=== PATIENT | male | born 1955 | race Caucasian/White ===

== ENCOUNTER 2023-12-15 07:21 | Outpatient (CLI) | payer MEDICARE, SELFPAY ==
--- OUTSIDE RECORDS SUMMARY | 2023-12-15 07:25 | XMS_ITS | Clinical Summary ---
Author Name Unknown Organization [facility] Address [place], [place] [address] Care Team Providers Care Saddle Lining Stitcher Name Role Phone Segun Hopkins MD Primary Care Provider [phone] Lucy Crawley Unavailable [phone] Allergies Active Allergy Reactions Criticality Noted Date Comments Penicillins Muscle Weakness 10/05/2010 Medications Medication Sig Dispensed Refills Start Date End Date Status hydrochlorothiazide (HCTZ) 25 mg tabletIndications:h ypertension Take 25 mg by mouth once daily. Indications: HYPERTENSION Active doxycycline (ADOXA) 100 mg tabletIndications:a cne rosacea Take 100 mg by mouth 2 times daily. Indications: ACNE ROSACEA Active mirtazapine (REMERON SOLTAB) 15 mg disintegrating tabletIndications:i nsomnia Place 15 mg on the tongue at bedtime. Indications: insomnia Active omeprazole (PRILOSEC) 20 mg capsuleIndications: gastroesophageal reflux disease Take 20 mg by mouth every 24 hours. Indications: GASTROESOPHAGEAL REFLUX 10/05/2010 Active ASPIRIN (ASPIR-81 ORAL) Take 1 tablet by mouth once daily. Active cyanocobalamin (VITAMIN B12) 500 mcg tablet Take 500 mcg by mouth once daily. Active atorvastatin (LIPITOR) 10 mg tablet Take 10 mg by mouth once daily. Active thiamine (VITAMIN B1) 100 mg tablet Take 100 mg by mouth once daily. Active divalproex (DEPAKOTE) 250 mg Delayed-Release tablet Take 250 mg by mouth once daily. Take 500mg PO qAM and 1000mg PO qHS Active acamprosate (CAMPRAL) 333 mg tablet Take 666 mg by mouth 3 times daily. Active MULTIVITS,TH W-CA,FE,OTH MIN (MULTIVITAMIN AND MINERAL ORAL) Take 1 tablet by mouth once daily. Active guaiFENesin (MUCINEX) 600 mg Extended-Release tablet Take 600 mg by mouth 2 times daily if needed for Expectoration. Active Melatonin 5 mg tab Take 5 mg by mouth at bedtime if needed for Sleep. Active ibuprofen (ADVIL; MOTRIN) 200 mg tablet Take 600 mg by mouth 4 times daily if needed. Active benzonatate (TESSALON) 100 mg capsule Take 200 mg by mouth 3 times daily if needed for Cough. Active loratadine (CLARITIN) 10 mg tablet Take 10 mg by mouth once daily if needed for Allergy Symptoms. Active rx azithromycin (ZITHROMAX ZPAK) 250 mg tablet (ED DC MED)Indications:Aty pical pneumonia Take 500 mg (2 tablets) by mouth on Day 1 then 250 mg (1 tablet) by mouth daily on Days 2-5. 2 tablet 0 01/01/2015 Active Active Problems Problem Noted Date Diagnosed Date Sensorineural hearing loss, bilateral 02/09/2017 Other and unspecified alcoho l dependence, continuous drinking behavior 10/06/2010 Cannabis dependence, continuous 10/06/2010 Encounters Date Type Department Care Team Description 12/01/2023 Telephone [facility] [address] [place] [address] Sung Lang, AuD Questions (Poured Wall Foreman referral ) from Last 3 Months Social History Tobacco Use Types Packs/Day Years Used Date Smoking Tobacco: Heavy Smoker Cigarettes Alcohol Use Standard Drinks/Week Comments Yes 0 (1 standard drink = 0.6 oz pur e alcohol) last drink 12/14/14 Sex and Gender Information Value Date Recorded Sex Assigned at Not on file Gender Identity Not on file Sexual Orientation Not on file Obstetrics History Last Filed Vital Signs Vital Sign Reading Time Taken Comments Blood Pressure 155/92 01/01/2015 11:40 PM CDT Pulse 67 01/01/2015 11:40 PM CDT Temperature 36.8 ??C (98.3 ??F) 01/01/2015 10:21 PM C DT Respiratory Rate 20 01/01/2015 10:21 PM CDT Oxygen Saturation 95% 01/01/2015 11:40 PM CDT Inhaled Oxygen Concentration - - Weight 88.9 kg (196 lb) 01/01/2015 10:21 PM CDT Height 188 cm (6' 2) 01/01/2015 10:21 PM CDT Body Mass Index 25.16 01/01/2015 10:21 PM CDT Plan of Treatment Health Maintenance Due Date Last Done Comments Tdap 1968 Depression screening for age 12+ 1969 BMI (ht and wt on same day) for age 18+ 1975 Hepatitis C screening for ag e 18-79 1975 Tetanus booster 1977 Colonoscopy through age 75 2002 Lipids for age 45-75 2002 Zoster (shingles) series for age 50+ (1 of 2) 2007 Medicare Wellness for age 65+ 2022 Pneumococcal series for age 65+ (1 of 1 - PCV) 2022 COVID-19 vaccine series (2022-24 season) 2023 11/24/2022, 11/20/2021, 11/23/2020, Additional history exists Influenza for age 65+ 04/10/2024 Advance Directives * Full Code (Latest Code Status on File) Date Activated Date Inactivated Comments 10/05/2010 2:33 PM 10/08/2010 2:50 PM Care Teams Saddle Lining Stitcher Relationship Specialty [place] [id number] [id number] PCP - General 03/17/08 Lucy Crawley AuD [address] [place] [address] Audiology 02/09/17
--- OUTSIDE RECORDS SUMMARY | 2023-12-15 07:25 | XMS_ITS | Clinical Summary ---
Author Name Unknown Organization [facility] Address [address] [place] [address] Care Team Providers Care Escape Wheel Tooth Cutter Name Role Phone Segun Hopkins MD Primary Care Provider [phone] Source Comments You are receiving this document as you are listed as the primary care provider,follow-up provider, or the patient has been referred to you for consultation.This is in compliance with the Medicare andMedicaid EHR Incentive Program,which states Providers who transition their patient to another setting of careor provider of care or refers their patient to another provider of care shouldprovide summary care record for each transition of care or referral. [facility] Allergies Active Allergy Reactions Criticality Noted Date Comments Gabapentin Anaphylaxis High 03/23/2014 Throat Swelling with difficulty breathing Levetiracetam Other, see comments High 01/06/2020 Manic Episodes Penicillins Muscle Aches/Weakness 01/30/2017 Medications Medication Sig Dispensed Refills Start Date End Date Status divalproex (DEPAKOTE DR) 500 MG enteric coated tablet Take 1,000 mg by mouth two times a day. Active folic acid 1 MG tablet Take by mouth daily. Acti ve Lansoprazole (PREVACID OR) Active aspirin 81 MG chewable tablet Chew and swallow 1 Tablet by mouth daily. Active VIMPAT 100 MG tablet Take 100 mg by mouth two times a day. 07/12/2021 Active lamoTRIgine (LAMICTAL) 25 MG tablet Take 50 mg by mouth two times a day. 07/12/2021 Active lisinopril (ZESTRIL) 5 MG tablet Take 5 mg by mouth. 05/28/2021 Acti ve metoprolol succinate (TOPROL XL) 25 MG 24 hour release tablet TAKE 1 TABLET BY MOUTH ONE TIME DAILY do not crush or chew 07/09/2021 Active omeprazole (PRILOSEC) 20 MG capsule TAKE 1 CAPSULE BY MOUTH EVERY MORNING BEFORE BREAKFAST 06/15/2021 Active traZODone (DESYREL) 50 MG tablet Take 50 mg by mouth daily at bedtime. 06/15/2021 Active sodium chloride 1 g tablet Take 3 tablets (3 g total) by mouth 3 (three) times a day with meals. 05/07/2021 Active atorvastatin (LIPITOR) 10 MG tablet Take 10 mg by mouth daily. 06/15/2021 Active divalproex (DEPAKOTE ER) 250 MG 24 hour release tablet TAKE ONE TABLET BY MOUTH ONE TIME DAILY IN THE EVENING 06/01/2021 Active triamcinolone acetonide (KENALOG) 0.025 % creamIndications:int ertrigo Apply topically two times a day. Bid x 5-7 days then prn Indications: intertrigo 30 g 1 07/24/2021 Active ketoconazole (NIZORAL) 2 % cream Apply daily to affected areas. 30 g 1 07/24/2021 Active Active Problems No known active problems Social History Tobacco Use Types Packs/Day Years Used Date Smoking Tobacco: Some Days Smokeless Tobacco: Never Alcohol Use Standard Drinks/Week Comments Yes 0 (1 standard drink = 0.6 oz pur e alcohol) Sex and Gender Information Value Date Recorded Sex Assigned at Not on file Gender Identity Not on file Sexual Orientation Not on file Last Filed Vital Signs Vital Sign Reading Time Taken Comments Blood Pressure 130/69 07/24/2021 9:16 AM NURSE TECHNICIAN Pulse 59 07/24/2021 9:16 AM NURSE TECHNICIAN Temperature 37 ??C (98.6 ??F) 07/24/2021 9:16 AM NURSE TECHNICIAN Respiratory Rate 18 07/24/2021 9:15 AM NURSE TECHNICIAN Oxygen Saturation 98% 07/24/2021 9:15 AM NURSE TECHNICIAN Inhaled Oxygen Concentration - - Weight 92 kg (202 lb 12.8 oz) 01/30/2017 2:15 PM CDT Height 188 cm (6' 2) 01/30/2017 2:15 PM CDT Body Mass Index 26.04 01/30/2017 2:15 PM CDT Plan of Treatment Health Maintenance Due Date Last Done Comments Colon Cancer Screening Plan Due 1957 Hep C Screening (Preventive Services) 1955 PSA Screening Discussion 1957 Adult Preventive Visit 1975 Cholesterol 1992 COVID-19 Vaccine (3 - season) 2023 11/23/2020, 10/26/2020 Pneumococcal 65+ Yrs (3 - PPSV23 or PCV20) 01/27/2024 01/04/2021, 01/26/2019, 05/09/2016, Additional history exists Influenza (Season Ended) 2024 021, 10/18/2019, 06/04/2016, Additional history exists DTaP/Tdap/Td (3 - Tdap) 05/02/2030 05/02/2020, 07/31 Zoster/Shingles Completed 04/24/2021, 01/04/2021 HepA Aged Out No longer eligi ble based on patient's age to complete this topic HepB Aged Out No longer eligi ble based on patient's age to complete this topic Hib Aged Out No longer eligi ble based on patient's age to complete this topic IPV (Polio) Aged Out No longer eligi ble based on patient's age to complete this topic MCV4 Aged Out No longer eligi ble based on patient's age to complete this topic Advance Directives * Full Code (Latest Code Status on File) Date Activated Date Inactivated Comments 01/30/2017 2:50 PM 01/31/2017 1:50 PM Care Teams Escape Wheel Tooth Cutter Relationship Specialty [place] [address] [address] [id number] PCP - General Family Practice 01/30/17
--- OUTSIDE RECORDS SUMMARY | 2023-12-15 07:25 | XMS_ITS | Encounter Summary ---
Author Name Unknown Organization [facility] Address [address] [place] [address] Care Team Providers Care Baggage Porter Head Name Role Phone Segun Hopkins MD Primary Care Provider [phone] Encounter Details Date Type Department Care Team (Late st Contact Info) Description 01/30/2017 Correspondence [facility] Radiology [address] [place] [id number] Radiology, Provider MRI SAFETY SHEET AND COMPATIBILITY FORM Social History Tobacco Use Types Packs/Day Years Used Date Smoking Tobacco: Some Days Alcohol Use Standard Drinks/Week Comments Yes 0 (1 standard drink = 0.6 oz pur e alcohol) Sex and Gender Information Value Date Recorded Sex Assigned at Not on file Gender Identity Not on file Sexual Orientation Not on file documented as of this encounter Plan of Treatment Not on file documented as of this encounter Visit Diagnoses Not on filedocumented in this encounter Care Teams Baggage Porter Head Relationship Specialty [place] [address] [place] [address] PCP - General Family Practice 01/30/17 documented as of this encounter
--- OUTSIDE RECORDS SUMMARY | 2023-12-15 07:26 | XMS_ITS | Referral Summary ---
Author Name Unknown Organization [facility] Address [address] [place] [address]. [place] [address] Care Team Providers Care Medicaid Collection Specialist Name Role Phone Segun Hopkins MD Primary Care Provider [phone] Allergies Active Allergy Reactions Criticality Noted Date Comments Gabapentin 03/23/2014 Penicillins 03/23/2014 Medications Medication Sig Dispensed Refills Start Date End Date Status atorvastatin (LIPITOR) 10 MG tablet Take 10 mg by mouth daily Active omeprazole (PRILOSEC) [address] capsule Take 20 mg by mouth At Bedtime Active vitamin B-12 (CYANOCOBALAMIN) 500 MCG tablet Take 500 mcg by mouth daily Active vitamin B1 (THIAMINE) 100 MG tablet Take 100 mg by mouth daily Active MELATONIN PO Take 10 mg by mouth At Bedtime Active folic acid (FOLVITE) 1 MG tablet Take 1 mg by mouth daily Active multivitamin, therapeutic with minerals (THERA-VIT-M) TABS Take 1 tablet by mouth daily Active traZODone (DESYREL) 50 MG tablet Take 50 mg by mouth At Bedtime 09/13/2019 Active metoprolol succinate ER (TOPROL-XL) 25 MG 24 hr tablet Take 25 mg by mouth daily 09/13/2019 Active doxycycline hyclate (VIBRAMYCIN) 100 MG capsule Take 100 mg by mouth 2 times daily 09/13/2019 Active ibuprofen (ADVIL/MOTRIN) 200 MG tablet Take 200 mg by mouth every 6 hours as needed for mild pain Active aspirin (ASA) 325 MG EC tablet Take 325 mg by mouth daily Active divalproex sodium extended-release (DEPAKOTE ER) 500 MG 24 hr tablet Take 1,000 mg by mouth every morning Active divalproex sodium extended-release (DEPAKOTE ER) 500 MG 24 hr tablet Take 1,500 mg by mouth every evening Active mirtazapine (REMERON) 15 MG tablet Take 7.5 mg by mouth At Bedtime Active nitroGLYcerin (NITROSTAT) 0.[address] 0.4 mg under the tongue every 5 minutes as needed 09/13/2019 Active cholecalciferol (VITAMIN D-[address]) 25 MCG (1000 UT) TABS Take 1,000 Units by mouth daily Active lisinopril (ZESTRIL) 5 MG tabletIndications:Esse ntial hypertension Take 1 tablet (5 mg) by mouth daily 30 tablet 1 10/18/2019 Active clonazePAM (KLONOPIN) 1 MG tabletIndications:[place] withdrawal seizure with complication (H) 1 po bid x 7 days, then 0.5 qam and 1 qpm x 7 days, then 0.5 mg BID x 7 days, then 0.5 mg at bedtime x 7 days 35 tablet 10/19/2019 Active levETIRAcetam (KEPPRA) 1000 MG tabletIndications:[place] withdrawal seizure with complication (H) 1000 mg po bid x 14 days, then 500 mg q am and 1000 mg qpm x 7 days, then 500 mg po bid x 7 days, then 500 mg po at bedtime x 7 days. 49 tablet 10/19/2019 Active Active Problems Problem Noted Date Diagnosed Date Recurrent seizures 10/18/2019 Essential hypertension 10/18/2019 Venous (peripheral) insufficiency 10/18/2019 Bipolar disorder 09/13/2019 Other seizures 11/25/2018 Thrombocytopenia (H24) 08/07/2017 Hyperlipidemia 07/27/2017 Adenocarcinoma of lung 02/05/2017 Overview: Cancer Lung Adenocarcinoma NOS Atherosclerotic heart diseas e of [place] coronary artery without angina pectoris 06/13/2016 Acute alcohol intoxication (H24) 05/07/2016 Alcohol dependence with withdrawal with complica tion 05/07/2016 Nicotine dependence 05/07/2016 Hypertensive heart disease without heart failure 04/29/2016 Overview: Hypertension (HTN) NOS Alcohol withdrawal 10/09/2015 Cannabis dependence, continuous 10/06/2010 Immunizations Name Administration Dates Next Due Influenza Vaccine 18-64 (Flublok) 10/18/2019 Pneumococcal 23 valent 05/09/2016 Social History Tobacco Use Types Packs/Day Years Used Date Smoking Tobacco: Every Day Cigarettes Smokeless Tobacco: Never Alcohol Use Standard Drinks/Week Comments Yes 0 (1 standard drink = 0.6 oz pur e alcohol) 1+ liter vodka daily Sex and Gender Information Value Date Recorded Sex Assigned at Not on file Gender Identity Not on file Sexual Orientation Not on file Last Filed Vital Signs Vital Sign Reading Time Taken Comments Blood Pressure 101/64 10/20/2019 7:59 AM CDT Pulse 67 10/20/2019 7:59 AM CDT Temperature 36.1 ??C (96.9 ??F) 10/20/2019 7:59 AM CD T Respiratory Rate 16 10/20/2019 7:59 AM CDT Oxygen Saturation 98% 10/20/2019 7:59 AM CDT Inhaled Oxygen Concentration - - Weight 95.9 kg (211 lb 6.4 oz) 10/18/2019 6:28 A M CDT Height 188 cm (6' 2) 10/15/2019 3:55 PM NATIONAL ACCOUNT DIRECTOR Body Mass Index 27.14 10/15/2019 3:55 PM NATIONAL ACCOUNT DIRECTOR Plan of Treatment Not on file Advance Directives For more information, please contact: [phone] * Full Code (Latest Code Status on File) Date Activated Date Inactivated Comments 10/18/2019 10:26 AM Question Answer Comments Code status determined by: Discussion with yamileth nt/legal decision maker * Full Code Date Activated Date Inactivated Comments 10/15/2019 4:10 PM 10/18/2019 10:26 AM Question Answer Comments Code status determined by: Discussion with yamileth nt/legal decision maker * Full Code Date Activated Date Inactivated Comments 05/08/2016 3:22 PM 10/15/2019 10:14 AM * Full Code Date Activated Date Inactivated Comments 05/07/2016 6:52 PM 05/08/2016 3:22 PM * Full Code Date Activated Date Inactivated Comments 10/11/2015 10:25 AM 05/07/2016 6:52 PM Care Teams Medicaid Collection Specialist Relationship Specialty Start Date End Date Segun Hopkins MD [facility] [address] [place] [address] PCP - General Family Practice 10/09/15
--- OUTSIDE RECORDS SUMMARY | 2023-12-15 07:26 | XMS_ITS | Clinical Summary ---
Author Name Unknown Organization [facility] Address [address] [place] [address]. [place] [address] Care Team Providers Care Dermatology Nurse Practitioner Name Role Phone Segun Hopkins MD Primary Care Provider [phone] Allergies Active Allergy Reactions Criticality Noted Date [...] Adenocarcinoma NOS Atherosclerotic heart diseas e of [place] coronary artery without angina pectoris 06/13/2016 Acute alcohol intoxication (H24) 05/07/2016 Alcohol dependence with withdrawal with complica tion 05/07/2016 Nicotine dependence 05/07/2016 Hypertensive heart disease without heart failure 04/29/2016 Overview: Hypertension (HTN) NOS Alcohol withdrawal 10/09/2015 Cannabis dependence, continuous 10/06/2010 Immunizations Name Administration Dates Next Due Influenza Vaccine 18-64 (Flublok) 10/18/2019 Pneumococcal 23 valent 05/09/2016 Family History Medical History Relation Comments Depression Father Substance Abuse Father Depression Maternal Grandfather Depression Maternal Grandmother Bipolar Disorder Mother Dementia Mother Substance Abuse Mother Substance Abuse Paternal Grandfather Relation Status Comments Father Maternal Grandfather Maternal Grandmother Mother Alive Paternal Grandfather Paternal Grandmother Social History Tobacco Use Types Packs/Day Years [...] 188 cm (6' 2) 10/15/2019 3:55 PM JAVA LEAD Body Mass Index 27.14 10/15/2019 3:55 PM JAVA LEAD Plan of Treatment Not on file Advance Directives For more information, please contact: [phone] * Full Code (Latest Code Status on File) Date Activated Date Inactivated Comments 10/18/2019 10:26 AM Question Answer Comments Code status determined by: Discussion with patie nt/legal decision maker * Full Code Date Activated Date Inactivated Comments 10/15/2019 4:10 PM 10/18/2019 10:26 AM Question Answer Comments Code status determined by: Discussion with patie nt/legal decision maker * Full Code Date Activated Date Inactivated Comments 05/08/2016 3:22 PM 10/15/2019 10:14 AM * Full Code Date Activated Date Inactivated Comments 05/07/2016 6:52 PM 05/08/2016 3:22 PM * Full Code Date Activated Date Inactivated Comments 10/11/2015 10:25 AM 05/07/2016 6:52 PM Care Teams Dermatology Nurse Practitioner Relationship Specialty Start Date End Date Segun Hopkins MD [facility] [address] [place] [address] PCP - General Family Practice 10/09/15
--- OUTSIDE RECORDS SUMMARY | 2023-12-15 07:26 | XMS_ITS | Patient Health Record ---
Author Name Unknown Organization [facility] Address [address] [place] [address] [address] [place] [address] Care Team Providers Care Director Of Development And Marketing Name Role Phone Segun Hopkins Primary Care Provider [phone] Karsten Butler Unavailable [phone] Jagruti Tyler Unavailable Unavailable ALLERGIES Allergen (clinical drug ingredient) Drug/Non Drug Allergy documented on EMR Reaction Allergy Type Onset Date Status gabapentin GABAPENTIN Unknown Drug Allergy 03/23/2014 Acti ve Substance with penicillin structure and antibacterial mechanism of action (substance) PENICILLINS Unknown Drug Allergy 03/23/2014 Active REASON FOR REFERRAL No Information MEDICATIONS Medication SIG (Take, Route, Frequency, Duration) Notes Start Date End Date Status Lisinopril 5 MG Take 1 tablet (5 mg) by mouth daily Oral Imported from [facility] (25-Oct-2020 at 08:10:48 AM) 10/18/2019 Active vitamin B-12 (CYANOCOBALAMIN) 500 MCG tablet Take 500 mcg by mouth daily *please review for potential _update for e-prescription and drug interaction check* Imported from [facility] (25-Oct-2020 at 08:10:48 AM) Active MELATONIN PO Take 10 mg by mouth at bedtime *please review for potential _update for e-prescription and drug interaction check* Imported from [facility] (25-Oct-2020 at 08:10:48 AM) Active Sodium Chloride 1 GM Oral 10/30/2020 Active Metoprolol Succinate ER 25 MG Take 25 mg by mouth daily Oral Imported from [facility] (25-Oct-2020 at 08:10:48 AM) 09/13/2019 Active Nitroglycerin 0[address] 0.4 mg under the tongue every 5 minutes as needed Sublingual Imported from [facility] (25-Oct-2020 at 08:10:48 AM) 09/13/2019 Active Thiamine HCl 100 MG Take 100 mg by mouth daily Oral Imported from [facility] (25-Oct-2020 at 08:10:48 AM) Active LaMICtal 25 MG BID Oral 10/30/2020 Acti ve Divalproex Sodium ER 500 MG Take 1,000 mg by mouth every morning Oral Imported from [facility] (25-Oct-2020 at 08:10:48 AM) Active Atorvastatin Calcium 10 MG Take 10 mg by mouth daily Oral Imported from [facility] (25-Oct-2020 at 08:10:48 AM) Active Vitamin B-6 100 MG Oral 10/30/2020 Active Mirtazapine 15 MG Take 7.5 mg by mouth at bedtime Oral Imported from [facility] (25-Oct-2020 at 08:10:48 AM) Active Thera M Plus - Take 1 tablet by mouth daily Oral Imported from [facility] (25-Oct-2020 at 08:10:48 AM) Active Voltaren 1 % External 10/30/2020 Active Doxycycline Hyclate 100 MG Take 100 mg by mouth 2 times daily Oral Imported from [facility] (25-Oct-2020 at 08:10:48 AM) 09/13/2019 Active Folic Acid 1 MG Take 1 mg by mouth daily Oral Imported from [facility] (25-Oct-2020 at 08:10:48 AM) Active cholecalciferol (VITAMIN D-[address]) 25 MCG (1000 UT) TAB Take 1,000 units by mouth daily *please review for potential _update for e-prescription and drug interaction check* Imported from [facility] (25-Oct-2020 at 08:10:48 AM) Active Omeprazole 20 MG Take 20 mg by mouth at bedtime Oral Imported from [facility] (25-Oct-2020 at 08:10:48 AM) Active Ibuprofen 200 MG Take 200 mg by mouth every 6 hours as needed for mild pain Oral Imported from [facility] (25-Oct-2020 at 08:10:48 AM) Active traZODone HCl 50 MG Take 50 mg by mouth at bedtime Oral Imported from [facility] (25-Oct-2020 at 08:10:48 AM) 09/13/2019 Active Aspirin EC 325 MG Take 325 mg by mouth daily Oral Imported from [employer] (25-Oct-2020 at 08:10:48 AM) Active IMMUNIZATIONS Vaccine Route Administration Date Status Comme nts Pneumococcal Unknown 05/09/2016 Administered SOCIAL HISTORY Tobacco Use: Social History Observation Description Date Details (start date - stop date) Never Smoker NA - NA Sex Assigned At : Social History Observation Description Sex Assigned At Unknown Tobacco Use/Smoking: Question Answer Notes Are you a nonsmoker Alcohol Screen Question Answer Notes Did you have a drink contain ing alcohol in the past year? Yes How often did you have a dri nk containing alcohol in the past year? 2 to 3 times a week (3 points) How many drinks did you have on a typical day when you were drinking in the past year? 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) 1 Active confirmed Psychoactive substance dependence (2399112) Problem Hereditary and idiopathic neuropathy, unspecified (G60.9) 1 Active confirmed Hereditary disorder of nervous system (998318180) Problem Postural kyphosis, 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) 1 Active confirmed Postural kyphosis (150641567) Problem Unspecified inflammatory spondylopathy, 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) 1 Active confirmed Inflammatory spondylopathy (613546953) Problem Segmental and somatic dysfunction of cervical region (M99.01) 1 Active confirmed Segmental and somatic dysfunction (177775721) Problem Segmental and somatic dysfunction of thoracic region (M99.02) 1 Active confirmed Segmental and somatic dysfunction (192835707) Problem Segmental and somatic dysfunction of lumbar region (M99.03) 1 Active confirmed Somatic dysfunction of lumbar region (847237585) Problem Other abnormalities of gait and mobility (R26.89) 1 Active confirmed Abnormal gait (72814121) Problem Unspecified lack of coordination (R27.9) 1 Active confirmed Lack of coordination (659951817) Problem Other malaise (R53.81) 1 Active confirmed Malaise (667303515) Problem Unspecified convulsions (R56.9) 1 Active confirmed Seizure (03439586) Problem Cervicalgia (M54.2) 1 Active confirmed Cervicalgia (71210189) PLAN OF TREATMENT No Information Insurance Providers Payer Name Payer Address Payer Phone Subscriber Number Group Number Insured Name Patient Relationship to Insured Coverage Start Date Coverage End Date [employer] [address] [address] [place] [address] [id number] Afshan Coleman Spouse - patient is the spouse of the insured 7 MEDICAL (GENERAL) HISTORY Medical History History ICD Code diagnosed depression, heart disease, lung disease, cancer, chemical dependency, hypertension, anxiety, coronary artery disease Surgical History Surgery Date(Month/Year)
--- OUTSIDE RECORDS SUMMARY | 2023-12-15 07:26 | XMS_ITS | Encounter Summary ---
Author Name Unknown Organization [facility] Address [address] [place] [address]. [place] [address] Care Team Providers Care Rib Chopper Name Role Phone Segun Hopkins MD Primary Care Provider [phone] Reason for Visit * Reason Onset Date Comments MH/CD Inpatient 10/09/2015 Encounter Details Date Type Department Care Team ([facility] st Contact Info) Description 10/09/2015 Telephone [facility] Behavioral Health Intake [address] [place] [phone] Generic, Behavioral Intake, MH/CD Inpatient Social History Tobacco Use Types Packs/Day Years Used Date Smoking Tobacco: Every Day Cigarettes Alcohol Use Standard Drinks/Week Comments Not Asked 0 (1 standard drink = 0.6 oz pur e alcohol) Sex and Gender Information Value Date Recorded Sex Assigned at Not on file Gender Identity Not on file Sexual Orientation Not on file documented as of this encounter Miscellaneous Notes * Telephone Encounter - Kaur Durant - 10/09/2015 12:18 PM CST S: shy gave clinical saying she did a virtual eval on pt who is in [facility] er due to intoxication. He was bib his . B: hx of bipolar and cd. Hx of 12 cd tx's and 3 inpt [facility] admits. He has been off his meds and drinking daily for past 6 mo's. He says he has been drinking about 1.5 liters of vodka/day for 6 mo's. He has been cutting down a bit in past wk. In the past 24 hrs he has had about 2 shots per hour except for 4 of those hours. Breath = .07. Hx of withdrawals which he says are severe. He has needed medical units for detox in past but er dr wants to pursue a mental health admit pr Shy as pt is med cleared. No hx of seizures. Hx of severe tremors. Pt says he was suicidal 2 days ago with plan to carbon monoxide poison himself. No sleep or food for past 3 days. He reports racing thoughts and very high anxiety. No chronic med prob's. A: denies current si saying he feels safe in hospital, med cleared, very coop, vol R: author discussed case w/ Antony who said he recommends pt admit to a medical unit. Author informed Shy who said she will inform er dr. hodges [employer] ANA[employer]ST documented in this encounter Plan of Treatment Not on file documented as of this encounter Visit Diagnoses Not on filedocumented in this encounter Care Teams Rib Chopper Relationship Specialty Start Date End Date Segun Hopkins MD [facility] [address] [place] [address] PCP - General Family Practice 10/09/15 documented as of this encounter
--- NOTE | 2023-12-15 08:00 | CT_ITS ---
Patient: MARIELA COARDO Facility:?[facility] Patient ID:?[id number] Site Patient ID:?[id number]. Site :?[id number] Study:?CT-Chest W/ 75CC ISOVUE 370-12/15/2023 8:42:05 AM Ordering Physician:TONI Final Report: INDICATION: Malignant neoplasm of right lung. TECHNIQUE: CT chest was acquired with 75 cc Isovue 370 IV contrast. COMPARISON: None. FINDINGS: Lungs and pleura: Postoperative changes involving the right lower lobe and right chest wall, unchanged compared to February 2023. No suspicious pulmonary nodular consolidation. Small left pleural effusion, slightly decreased in size compared to February 2023. No significant right pleural effusion. No pneumothorax. Mild emphysema. Mild-moderate diffuse large airways thickening. Heart and vasculature: Heart size is normal. Thoracic aorta and pulmonary artery are normal in caliber.Mild coronary artery and aortic calcification Lymph nodes/mediastinum: No mediastinal, hilar, or axillary adenopathy. Chest wall: Chronic postsurgical changes along the right lateral chest wall. Upper abdomen: Normal. Bones: Mild degenerative spondylosis. No suspicious osseous lesion. IMPRESSION: 1. Postoperative changes involving the right lower lobe and right chest wall without evidence of local recurrence. No evidence of metastatic disease in the chest. 2. Small left pleural effusion, smaller than in February 2023. 3. Emphysema and large airways thickening. Please note that all CT scans at this facility use dose modulation, iterative reconstruction, and/or weight-based dosing when appropriate to reduce radiation dose to as low as reasonably achievable. Dictated by Juan James MD @ 12/15/2023 12:44:38 PM Signed by:?Juan James MD @12/15/2023 12:44:38 PM (Electronic Signature)
== END 2023-12-15 07:22 | disposition home or self-care (01) ==
PROVIDERS: PCP Family Medicine; Visit Provider Internal Medicine Hematology & Oncology
DX: C34.92 Malignant neoplasm of unspecified part of left bronchus or lung (principal); J90 Pleural effusion, not elsewhere classified; J43.9 Emphysema, unspecified
CPT/HCPCS: 36415; 71260; 80053; 82565; 85025; Q9967

== ENCOUNTER 2023-12-21 13:59 | Outpatient (RCR) | payer MEDICARE, SELFPAY ==
[2023-12-15 08:11] LABS: Creatinine* 0.6 mg/dL (0.5-1.5); Estimated Glomerular Filt Rate 106 ml/min
[2023-12-15 12:19] LABS: Hematocrit 46.7 % (37.0-53.0); Hemoglobin* 15.4 gm/dL (13.5-17.5); Mean Corpuscular HGB Conc 33 gm/dL (32-36); Mean Corpuscular Hemoglobin 34 pg (26-34); Mean Corpuscular Volume 102 fL (80-100); Platelet Count* 160 K/uL (140-440); RDW Coefficient of Variation % 13.9 % (11.5-15.5); Red Blood Count 4.59 m/uL (4.30-5.90); White Blood Count* 6.83 K/uL (4.50-11.00)
[2023-12-15 12:25] LABS: Slide Review Reflex Req Man Differential
[2023-12-15 12:26] LABS: Total Cells Counted 100
[2023-12-15 12:41] LABS: Blastocytes Absolute Manual* 0; Blastocytes Percent Manual* 0; Promyelocytes Absolute Manual 0; Promyelocytes Percent Manual 0
[2023-12-15 15:13] LABS: Albumin* 3.9 g/dL (3.3-5.0); Chloride* 104 mmol/L (96-114); Potassium* 4.8 mmol/L (3.6-5.1); Sodium* 140 mmol/L (135-149)
[2023-12-15 15:15] LABS: Bilirubin Total* 0.6 mg/dL (0.1-1.5); Creatinine* 0.7 mg/dL (0.5-1.5); Estimated Glomerular Filt Rate 102 ml/min
[2023-12-15 15:16] LABS: Alanine Aminotransferase* 18 U/L (4-50); Alkaline Phosphatase* 88 U/L (40-150); Anion Gap 3 mEq/L (7-15); Aspartate Amino Transferase* 38 U/L (12-35); Blood Urea Nitrogen* 29 mg/dL (7-30); Calcium* 9.6 mg/dL (8.4-10.6); Carbon Dioxide* 33 mmol/L (20-32); Glucose* 103 mg/dL (60-115); Total Protein* 7.5 g/dL (6.0-8.3)
== END 2024-06-12 23:59 | disposition home or self-care (01) ==
LOC: CCIC 13:59
PROVIDERS: PCP Family Medicine; Referring Provider Internal Medicine Hematology & Oncology; Visit Provider Internal Medicine Hematology & Oncology
DX: C34.92 Malignant neoplasm of unspecified part of left bronchus or lung; F17.200 Nicotine dependence, unspecified, uncomplicated
CPT/HCPCS: 36415; 80053; 82565; 84520; 85025; 99214; G0463

== ENCOUNTER 2024-06-16 14:28 | Outpatient (CLI) | payer MEDICARE, SELFPAY ==
--- NOTE | 2024-06-16 14:30 | PE_ITS ---
[facility] [address] [facility] [address] Phone:?[phone] Fax:?[phone] Referring Physician Information: Shayy Li M.D. [address] [facility] [address] Phone:?[phone] Fax:?[phone] Patient:Xin Mahmood D.O.B:?1955 Sex:?Male Phone:?[phone] [facility] MRN:?[id number] Exam Date:?06/16/2024 EXAM: PET/CT EYES TO THIGHS, CANCER RESTAGING CLINICAL INFORMATION: Malignant neoplasm of right lung. TECHNICAL INFORMATION: Helical acquisition of data was obtained from the orbits to the upper thighs with reconstruction of 3.75 mm thick images at 3.[address] data was used for attenuation correction. PET scanning was performed through the same anatomic range 60 minutes following administration of 11.9 mCi of 18-FDG delivered intravenously. The patient's glucose at the time of the injection was 75 mg/dL. PET, CT and PET/CT fusion images are interpreted using a computer viewing workstation. PET, CT and PET/CT fusion images were archived and saved in the patient's permanent medical record. COMPARISON: Chest CT from 12/15/2023. INTERPRETATION: Head and Neck: There are no abnormal hypermetabolic foci within the head or neck. There is physiologic uptake in the intracranial soft tissues. Chest: Chronic postsurgical changes involving the right lateral chest wall and right lower lobe, similar to prior studies. When compared to the chest CT from December 2023, there has been interval development of a spiculated opacity in the right lower lobe (Se 2 Im 108) that measures 3.5 x 3.0 cm with a peripheral maximum SUV of 9.73 and central scintigraphic clearing suggesting central necrosis. There are no other abnormal hypermetabolic foci within the chest. Background mediastinal blood pool uptake has a maximum SUV of 2.67. No additional lung nodules or masses detected on this free-breathing exam. No intrathoracic lymphadenopathy in terms of size, morphology, or metabolic rate. A trace left pleural effusion is present, with potential split pleura sign. Abdomen and Pelvis: There are no abnormal hypermetabolic foci within the abdomen or pelvis. Background hepatic parenchymal uptake has a maximum SUV of 3.09. There is physiologic excretion of radiotracer in the urine and bowel. Skeleton, Musculature, and Integument: No abnormal hypermetabolic foci within the skeleton. No preston osteoblastic or osteolytic disease. CONCLUSION: 1. Since December 2023, there has been interval development of a spiculated opacity in the right lower lobe with suspected central necrosis. This is either new malignancy or new necrotizing lung infection. Request correlation for any clinical signs of pneumonia. Thoracic surgical consultation also should be considered. 2. No intrathoracic lymphadenopathy in terms of size, morphology, or metabolic rate. 3. Trace left pleural effusion is indeterminate, potentially exudative. Request correlation with diagnostic thoracentesis/cytology. 4. No sites of distant hypermetabolic disease from the skull base to midthighs. Electronically signed on 06/20/2024 11:21:00 AM by Salvatore Bird M.D.
--- OUTSIDE RECORDS SUMMARY | 2024-06-16 14:31 | XMS_ITS ---
Author Organization [facility] Address [address] [place] [address] [address] [place] [address] Care Team Providers Care Digital Campaign Specialist Name Role Phone Jagruti Tyler Primary Care Provider Karsten Lee Unavailable [phone] Ana Pringle Unavailable [phone] Encounters Encounter Location Date Provider Diagnosis [facility] [address] 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) 06/07/2024 Segmental and somati c dysfunction of cervical region (ICD-10 - M99.01) 06/07/2024 Segmental and somati c dysfunction of thoracic region (ICD-10 - M99.02) 06/07/2024 Segmental and somati c dysfunction of lumbar region (ICD-10 - M99.03) 06/07/2024 Other abnormalities of gait and mobility (ICD-10 - R26.89) 06/07/2024 Unspecified lack of coordination (ICD-10 - R27.9) 06/07/2024 Cervicalgia (ICD-10 - M54.2) Plan Of Treatment Next Appt Details Provider Name:Bonnie brunson, 06/21/2024 08:00:00 AM, [address], [place], [address], Provider Name:Ana diggs, 06/23/2024 08:00:00 AM, [address], [place], [address], Provider Name:Sean henry, 06/28/2024 08:00:00 AM, [address], [place], [address], Provider Name:Sean henry, 07/01/2024 08:00:00 AM, [address], [place], [address], Provider Name:Sean henry, 07/05/2024 08:00:00 AM, [address], [place], [address], Progress Notes * Salvatore CORADO [birth year]OB:[birth year] (68 yo M)Acc No.[id number]:06/07/2024 Daily Note Patient:?Salvatore CORADO H Provider:?Ana Pringle DPT :1955???Age:68 Y???Sex:Male [place] e:06/07/2024 Address:[address] [place] [address] [facility] Pcp:Jagruti Tyler Subjective: * Chief Complaints: * HPI: ???Therapy Visit Status:?Session Data?Today's Session Date?06/07/2024 ?Therapy Episode Status?Active ?Therapy Sessions Completed (#)?11 ?PT Goal Review Date?05/26/2024 ?OT Goal Review Date?05/31/2024 ???Therapy Visit Subjective:?Pt doing well since last session. Had company over this past weekend, notes it went well and kept him busy. No major changes since last session. Objective: * Vitals:? * Physical Examination:?Cervical Extension Positioning & Goals:?Positioning?Seat Height?478 ?TDC?66 ?CB?1.2 ?Goals?Low Goal Male (Max 282)?282 ?High Goal Male (Max 312)?312 ???Cervical Extension Exercise Performance:?Exercise?Torque (in-lbs)?204 ?Extension ROM (0)?30 ?Flexion ROM (126)?114 ?Repetitions?30 ?RPE (0-10)?5 ?Last Rep Status?Met Exertion Goal ?Exercise Plan?2 x week ???Lumbar Extension Positioning & Goals:?Positioning?TDC?21 ?CB?285 ?Femur?5 ?Other?Flat Rollers ?Goals?Low Goal Male >60 (60%BW)?104 ?High Goal Male>60 (80%BW, Max 225)?140 ???Lumbar Extension Exercise Performance:?Exercise?Torque (ft-lbs)?82 ?Extension ROM (0)?0 ?Flexion ROM (72)?39 ?Repetitions?30 ?Rating of Perceived Exertion (0-10)?7 ?Last Rep Status?Met Exertion Goal ?Exercise Plan?2 x week ?Notes?104-140# Goal ???Torso Rotation Positioning & Goals:?Positioning?Solen?3 ?Footboard?2 ?Back Pad?1 ?Goals?Low Goal Male >Age 60 (35%BW)?60 ?High Goal Male > Age 60 (40%BW, Max 110)?70 ???Torso Rotation Exercise Performance:?Exercise?Torque (ft-lbs)?34 ?Rotation Left (48)?36 ?Rotation Right (48)?36 ?Left Repetitions?30 ?Right Repetitions?30 ?RPE (0-10)?6 ?Last Rep Status?Met Exertion Goal, Met Repetition Goal ?Exercise Plan?2 x week ?Notes?60-70# Goal ???GLUTE Extension:?Exercise?Notes/Positioning?Upright ?Weight?15 ?Left Repetitions?15 ?Right Repetitions?15 ?RPE (0-10)?8 ?Last Rep Status?Met Exertion Goal, Met Repetition Goal ?Exercise Plan?2 x week ???Isotonic Exercise Machine Summary:?Exercise Summary?Maintained same load for TR today since pt did not have his full ROM last session, able to get back to 36-36 degrees today. Performed max reps bilat, able to make it to ROM w/o issues in terrms of hearing the beep or struggling to make it to the mat. Maintained same load for LE today w/ focus on increasing or maintaining same reps as previous session. Increased load for CE today, pt tolerated this well. Maintained same load for glute ext & same reps, can progress as tolerated..?Billing?[id number] (Therapeutic Exercise) Direct 1:1 Time= 30 mins.? Therapeutic Interventions: * Therapeutic Interventions: ???1.?*Home Exercise List: Stretches & Release ? Neck Stretching HEP : Cervical Flexion,Cervical Extension- Supported,Upper Trapezius,Levator Scapulae ? Low Back and Hip Stretching HEP : Single KTC (supine) both knees bent,Trunk Rotation (double knee),Hamstring (seated) ???2.?*Home Exercise List: Strength ? Low Back & Core Strength HEP : Clamshell ? Hip & Core Strength HEP : Pallof press w/ blue theratube ? Balance & Gait HEP : Static Stand: Mod Tandem EO,Marching,Side step marching with 1-2 second hold at the top -- previously used agility ladder.Lateral stepping using agility ladder on floor,Mod single leg stance with single UE support at railing,Tandem stance on foam pads EO with flex/ext of head,Tandem stance on foam EC with railing support,tapping cone in front and at side of pt, ???3.?*Patient Education List ? Education Provided : Ch 2: Movement Activity Pacing,Ch 3: Nutrition ???4.?Endurance Training ? Stationary Bike : Performed as a warm up prior to session ???5.?Movement Therapy Summary ? Movement Therapy Details : Performed the following balance exercises to work on overall stability, steadiness on feet and challenging his balance in safe, controlled environment, SBA provided by PT for all exercises, VCs provided for upright posture for all exercises:- SLS w/ 1 UE support placed on top of railing (not firmly grasping railing), held for 60 secs bilat, no ant/post sway or LOB- Side steps w/ marching over 3 cones spaced out, holding 1-2 secs at top x 3 sets of 12 ft w/ BUE support on railing,- Forward steps w/ marching over 3 cones spaced out, holding 1-2 secs at top x 3 sets of 12 ft w/ 1 UE support on railing - focusing on clearing BLEs over obstacles- Standing toe taps on stacked blue foam pads to add unstable surface w/ 1 UE resting on top of railing, completed to fatigue (~ 3 mins) which is longer than he has been performing- Toe taps w/ 1 LE standing on foam pad and the other doing hip ext & hip abd taps x 10 reps bilat- Step ups on 6 inch step x 10 reps, using 1 UE support on railing - pt notably fatigued afterwards*Took seated breaks b/w exercises, needing decreased time b/w exercises todaySBA provided for all exercises by PT ? Billing : [id number] (Neuro-muscular Re-Ed) Direct 1:1 Time= 25 mins ? Assessment: * Therapy Assessment and Plan: 1.?Therapy Session Assessment ? Summary : Pt doing well since last session. No major changes/complaints. Able to work through machines first today than focusing remainder of session on balance. Pt continues to do well during sessions, his endurance and tolerance for activtiy during sessions has improved, requiring decreased frequency of seated breaks in b/w exercises. Tolerated entire session well today, mentioned that next session is last one pt has schl'd on the books, plans on making more into Nov either next time or calling in. Notes that he needs to figure out his Nov darion, he has multiple other doctor appts coming up. 2.?Therapy Session Plan ? Plan Details : *Patient Valued Goals/Activities: improve balance, walk w/o a cane, improve overall strength,*MD/ELODIA Follow Up Plan: 6 wks w/ Dr. Butler,*Incoming Referral Tracking - NOBalance & strength = main priorityCE, CR, LE, RT, Glute machine, - can alternate cervical machines each session if working on balance takes up more of sessionIntro LE and posterolateral hip strengthening Review/Progress Balance PRN,- Intro self releases for decreasing mm tension- Balance & coordination exercises - progressed 05/12/24,- Fxn'l gait endurance training- Education in terms of nutrition, sleep health- Functional training to be able to lift dog into truck (20 pounds), Pt experiences intermittent diplopia ? 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 Plan: * Treatment: * Procedure Codes:?47379 Thera peutic Exercise PT, Units: 2.00 , Modifiers: GP , Time (Mins): 1464733 Neuromuscular Reeducation PT, Units: 2.00 , Modifiers: GP , Time (Mins): 651744 * Billing Information: * Visit Code:? * Procedure Codes:? 67180 Therapeutic Exercise PT. Units: 2.00. Time (Mins):30Modifiers: GP 84562 Neuromuscular Reeducation PT. Units: 2.00. Time (Mins):25Modifiers: GP * Sign off status: Completed true * Provider:?Ana Pringle DPT Date:? Generated for Farhan morgan/Mague/Besssmitting on:?06/16/2024 02:31 PM [employer] History and Physical Notes * HPI (History of Present Illness) Category Sub-Category Detail Notes Therapy Visit Status Session Data Today's Session Date : 06/07/2024 Therapy Episode Status: Active Therapy Sessions Completed (#): 11 PT Goal Review Date: 05/26/2024 OT Goal Review Date: 05/31/2024 Physical Examination Category Sub-Category Detail Notes Lumbar Extension Exercise Performance Exercise Tor que (ft-lbs): 82 Extension ROM (0): 0 Flexion ROM (72): 39 Repetitions: 30 Rating of Perceived Exertion (0-10): 7 Last Rep Status: Met Exertion Goal Exercise Plan: 2 x week Notes: 104-140# Goal Lumbar Extension Positioning & Goals Positioning TDC: 21 CB: 285 Femur: 5 Other: Flat Rollers Goals Low Goal Male >60 (60%BW): 104 High Goal Male>60 (80%BW, Max 225): 140 Isotonic Exercise Machine Summary Billing [id number] (Therapeutic Exercise) Direct 1:1 Time= 30 mins Exercise Summary Maintained same load for TR today since pt did not have his full ROM last session, able to get back to 36-36 degrees today. Performed max reps bilat, able to make it to ROM w/o issues in terrms of hearing the beep or struggling to make it to the mat. Maintained same load for LE today w/ focus on increasing or maintaining same reps as previous session. Increased load for CE today, pt tolerated this well. Maintained same load for glute ext & same reps, can progress as tolerated. Cervical Extension Positioning & Goals Positioning Se at Height: 478 TDC: 66 CB: 1.2 Goals Low Goal Male (Max 282): 282 High Goal Male (Max 312): 312 Cervical Extension Exercise Performance Exercise T orque (in-lbs): 204 Extension ROM (0): 30 Flexion ROM (126): 114 Repetitions: 30 RPE (0-10): 5 Last Rep Status: Met Exertion Goal Exercise Plan: 2 x week Torso Rotation Positioning & Goals Positioning [place]: 3 Footboard: 2 Back Pad: 1 Goals Low Goal Male >Age 60 (35%BW): 6 0 High Goal Male > Age 60 (40%BW, Max 110) : 70 Torso Rotation Exercise Performance Exercise Torqu e (ft-lbs): 34 Rotation Left (48): 36 Rotation Right (48): 36 Left Repetitions: 30 Right Repetitions: 30 RPE (0-10): 6 Last Rep Status: Met Exertion Goal, Met Repetition Goal Exercise Plan: 2 x week Notes: 60-70# Goal GLUTE Extension Exercise Notes/Positioning: Uprigh t Weight: 15 Left Repetitions: 15 Right Repetitions: 15 RPE (0-10): 8 Last Rep Status: Met Exertion Goal, Met Repetition Goal Exercise Plan: 2 x week
--- OUTSIDE RECORDS SUMMARY | 2024-06-16 14:31 | XMS_ITS ---
Author Organization [facility] Address [address] [place] [address] [address] [place] [address] Care Team Providers Care Merchant Miller Name Role Phone Jagruti Tyler Primary Care Provider Karsten Lee Unavailable [phone] Ana Pringle Unavailable [phone] Encounters Encounter Location Date Provider Diagnosis [facility] [address] [facility] [place] [address] 06/02/2024 Ana Pringle Cerebellar ataxia in diseases classified [...] Notes Treat ment Notes Treatment Clinical Notes 06/02/2024 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 (ICD-10 - 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) 06/02/2024 Segmental and somati c dysfunction of cervical region (ICD-10 - M99.01) 06/02/2024 Segmental and somati c dysfunction of thoracic region (ICD-10 - M99.02) 06/02/2024 Segmental and somati c dysfunction of lumbar region (ICD-10 - M99.03) 06/02/2024 Other abnormalities of gait and mobility (ICD-10 - R26.89) 06/02/2024 Unspecified lack of coordination (ICD-10 - R27.9) 06/02/2024 Cervicalgia (ICD-10 - M54.2) Plan Of Treatment Next Appt Details Provider Name:Bonnie brunson, 06/21/2024 08:00:00 AM, [address], [place], [address], Provider Name:Ana diggs, 06/23/2024 08:00:00 AM, [address], [place], [address], Provider Name:Sean henry, 06/28/2024 08:00:00 AM, [address], [place], [address], Provider Name:Sean henry, 07/01/2024 08:00:00 AM, [address], [place], [address], Provider Name:Sean henry, 07/05/2024 08:00:00 AM, [address], [place], [address], Progress Notes * Salvatore CORADO HDOB:[birth year] (68 yo M)Acc No.[id number]:06/02/2024 Daily Note Patient:?Salvatore CORADO H Provider:?Ana Pringle DPT :1955???Age:68 Y???Sex:Male [place] e:06/02/2024 Address:[address] [place] [address] [facility] Pcp:Jagruti Tyler Subjective: * Chief Complaints: * HPI: ???Therapy Visit Status:?Session Data?Today's Session Date?06/02/2024 ?Therapy Episode Status?Active ?Therapy Sessions Completed (#)?10 ?PT Goal Review Date?05/26/2024 ?OT Goal Review Date?05/31/2024 ???Therapy Visit Subjective:? Pt doing well today. Feels his balance is starting to improve, has been happy about the progress he has been making and addressing this during his sessions. Objective: * Vitals:? * Physical Examination:?Lumbar Extension Positioning & Goals:?Positioning?TDC?21 ?CB?285 ?Femur?5 ?Other?Flat Rollers ?Goals?Low Goal Male >60 (60%BW)?104 ?High Goal Male>60 (80%BW, Max 225)?140 ???Lumbar Extension Exercise Performance:?Exercise?Torque (ft-lbs)?82 ?Extension ROM (0)?0 ?Flexion ROM (72)?39 ?Repetitions?30 ?Rating of Perceived Exertion (0-10)?7 ?Last Rep Status?Met Exertion Goal ?Exercise Plan?2 x week ?Notes?104-140# Goal ???Cervical Rotation Positioning & Goals:?Positioning?Seat Height?302 ?Back Pad?0 ?Head Pad?1 ?Notes?Footstool ???Cervical Rotation Exercise Performance:?Exercise?Torque (in-lbs)?46 ?Rotation Left (60-72)?48 ?Rotation Right (60-72)?48 ?Left Repetitions?30 , L side first ?Right Repetitions?24 Started to not reach the beep, couldn't hear since he needed to take out hearing aids ?RPE (0-10)?5 ?Last Rep Status?Met Repetition Goal ?Exercise Plan?2 x week ???Torso Rotation Positioning & Goals:?Positioning?[place]?3 ?Footboard?2 ?Back Pad?1 ?Goals?Low Goal Male >Age 60 (35%BW)?60 ?High Goal Male > Age 60 (40%BW, Max 110)?70 ???Torso Rotation Exercise Performance:?Exercise?Torque (ft-lbs)?34 ?Rotation Left (48)?30 Decreased to 30 degrees today, was able to push weigh to 36 degrees after a few reps, can return to 36 next session,., Keep 36-36; difficulty reaching beeps at higher weights ?Rotation Right (48)?36 ?Left Repetitions?30 ?Right Repetitions?30 ?RPE (0-10)?5 ?Last Rep Status?Met Exertion Goal, Met Repetition Goal ?Exercise Plan?2 x week ?Notes?60-70# Goal ???GLUTE Extension:?Exercise?Notes/Positioning?Upright ?Weight?15 ?Left Repetitions?15 ?Right Repetitions?15 ?RPE (0-10)?8 ?Last Rep Status?Met Exertion Goal, Met Repetition Goal ?Exercise Plan?2 x week ???Isotonic Exercise Machine Summary:?Exercise Summary?Increased load for TR & LE (slight increase) today, pt tolerated this well. Due to time, did not have time to complete CE, plan on adding back into MedX routine next session. Able to perform CR for the first time in a few sessions, maintained same load since it has been a while, pt tolerated this well. Slighly decreased ROM for TR on the L side, pt was a bit stiff today, still able to push the weight to his normal 36-36 ROM, limited to 30 degrees on the L today, can return to 36-36 next session as tolerated. Maintained same load for glute ext, decreased reps to 15 bilat due to time and mm fatigue..?Billing?[id number] (Therapeutic Exercise) Direct 1:1 Time= 33 mins.? Therapeutic Interventions: * Therapeutic Interventions: ???1.?*Home [...] firmly grasping railing), held for 60 secs bilat R side, increased mm fatigue noted today, no ant/post sway or LOB- Side steps w/ marching, holding 1-2 secs at top x 1 set of 12 ft w/ BUE support on railing,*Progressed side steps to provide more challenge and using external cues of cones to step over to encourage clearing his feet while steeping*- Side steps w/ marching over 3 cones spaced out, holding 1- 2 secs at top x 3 sets of 12 ft w/ BUE support on railing,- Standing toe taps on stacked blue foam pads to add unstable surface w/ 1 UE resting on top of railing, completed to fatigue ( > 1.5 mins) which is longer than he has been performing- Toe taps w/ 1 LE standing on foam pad and the other doing hip ext & hip abd taps x 10 reps bilat*Took seated breaks b/w exercises, needing decreased time b/w exercises todaySBA provided for all exercises by PT ? Billing : [id number] (Neuro-muscular Re-Ed) Direct 1:1 Time= 25 mins ? Assessment: * Therapy Assessment and Plan: 1.?Therapy Session Assessment ? Summary : Pt doing well today, he has been happy w/ the progress he has made w/ his balance and does notice it has been improving. During today's session, he demonstrated improvement in overall balance and endurance for balance activities which has improved in the past few weeks, although he did have mm fatigue, I noticed decreased overall sway and unsteadiness. He was able to ambulate throughout clinic b/w machines w/o using his cane. Increased loads for TR & LE, tolerated these well. Able to bring CR back in routine today, did have to skip CE due to time, plan on possibly alternating these cervical machines to utilize both of them, maintained same load for CR, tolerated it well. Today was a very successful session, he was fatigued by the end of the hour but was able to take fewer breaks in b/w exercises and machines. 2.?Therapy Session Plan ? Plan Details : [...] - M54.2??? Plan: * Treatment: * Procedure Codes:?37017 Thera peutic Exercise PT, Units: 2.00 , Modifiers: GP , Time (Mins): 4648953 Neuromuscular Reeducation PT, Units: 2.00 , Modifiers: GP , Time (Mins): 904583 * Billing Information: * Visit Code:? * Procedure Codes:? 33642 Therapeutic Exercise PT. Units: 2.00. Time (Mins):33Modifiers: GP 55674 Neuromuscular Reeducation PT. Units: 2.00. Time (Mins):25Modifiers: GP * Sign off status: Completed true * Provider:?Ana Pringle, DPT Date:? Generated for Farhan morgan/Mague/Jessicaitting on:?06/16/2024 02:31 PM [employer] History and Physical Notes * HPI (History of Present Illness) Category Sub-Category Detail Notes Therapy Visit Status Session Data Today's Session Date : 06/02/2024 Therapy Episode Status: Active Therapy Sessions Completed (#): 10 PT Goal Review Date: 05/26/2024 OT Goal [...] 225): 140 Isotonic Exercise Machine Summary Billing [id number] (Therapeutic Exercise) Direct 1:1 Time= 33 mins Exercise Summary Increased load for T R & LE (slight increase) today, pt tolerated this well. Due to time, did not have time to complete CE, plan on adding back into MedX routine next session. Able to perform CR for the first time in a few sessions, maintained same load since it has been a while, pt tolerated this well. Slighly decreased ROM for TR on the L side, pt was a bit stiff today, still able to push the weight to his normal 36-36 ROM, limited to 30 degrees on the L today, can return to 36-36 next session as tolerated. Maintained same load for glute ext, decreased reps to 15 bilat due to time and mm fatigue. Cervical Rotation Positioning & Goals Positioning Sea t Height: 302 Back Pad: 0 Head Pad: 1 Notes: Footstool Cervical Rotation Exercise Performance Exercise To rque (in-lbs): 46 Rotation Left (60-72): 48 Rotation Right (60-72): 48 Left Repetitions: 30 , L side first Right Repetitions: 24 Started to not ivett ch the beep, couldn't hear since he needed to take out hearing aids RPE (0-10): 5 Last Rep Status: Met Repetition Goal Exercise Plan: 2 x week Torso Rotation Positioning & Goals Positioning [place]: 3 Footboard: 2 Back Pad: 1 Goals Low Goal Male >Age 60 (35%BW): 6 0 High Goal Male > Age 60 (40%BW, Max 110) : 70 Torso Rotation Exercise Performance Exercise Torqu e (ft-lbs): 34 Rotation Left (48): 30 Decreased to 30 degrees today, was able to push weigh to 36 degrees after a few reps, can return to 36 next session,. , Keep 36-36; difficulty reaching beeps at higher weights Rotation Right (48): 36 Left Repetitions: 30 Right Repetitions: 30 RPE (0-10): 5 Last Rep Status: Met Exertio n Goal, Met Repetition Goal Exercise Plan: 2 x week Notes: 60-70# Goal GLUTE Extension Exercise Notes/Positioning: Uprigh t Weight: 15 Left Repetitions: 15 Right Repetitions: 15 RPE (0-10): 8 Last Rep Status: Met Exertion Goal, Met Repetition Goal Exercise Plan: 2 x week
--- OUTSIDE RECORDS SUMMARY | 2024-06-16 14:31 | XMS_ITS ---
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) 06/09/2024 Segmental and somati c dysfunction of cervical region (ICD-10 - M99.01) 06/09/2024 Segmental and somati c dysfunction of thoracic region (ICD-10 - M99.02) 06/09/2024 Segmental and somati c dysfunction of lumbar region (ICD-10 - M99.03) 06/09/2024 Other abnormalities of gait and mobility (ICD-10 - R26.89) 06/09/2024 Unspecified lack of coordination (ICD-10 - R27.9) 06/09/2024 Cervicalgia (ICD-10 - M54.2) Plan Of Treatment Next Appt Details Provider Name:Bonnie brunson, 06/21/2024 08:00:00 AM, [address], [place], [address], Provider Name:Ana Patel Dilip diggs, 06/23/2024 08:00:00 AM, [address], [place], [address], Provider Name:Sean henry, 06/28/2024 08:00:00 AM, [address], [place], [address], Provider Name:Sean henry, 07/01/2024 08:00:00 AM, [address], [place], [address], Provider Name:Sean henry, 07/05/2024 08:00:00 AM, [address], [place], [address], Progress Notes * Salvatore CORADO HDOB:[birth year] (68 yo M)Acc No.[id number]:06/09/2024 Daily Note Patient:?Salvatore CORADO H Provider:?RAFIA Kinney?Resour ce:Lauren Adan :1955???Age:68 Y???Sex:Male [place] e:06/09/2024 [facility] Pcp:Jagruti Tyler Subjective: * Chief Complaints: * HPI: ???Therapy Visit Status:?Session Data?Today's Session Date?06/09/2024 ?Therapy Episode Status?Active ?Therapy Sessions Completed (#)?12 ?PT Goal Review Date?05/26/2024 ?OT Goal Review Date?05/31/2024 ???Therapy Visit Subjective:? Pt states he's feeling better.? Pt ambulates daily, HEP performed almost daily. Objective: * Vitals:? * Physical Examination:?Lumbar Extension Positioning & Goals:?Positioning?TDC?21 ?CB?285 ?Femur?5 ?Other?Flat Rollers ?Goals?Low Goal Male >60 (60%BW)?104 ?High Goal Male>60 (80%BW, Max 225)?140 ???Lumbar Extension Exercise Performance:?Exercise?Torque (ft-lbs)?82 ?Extension ROM (0)?0 ?Flexion ROM (72)?39 ?Repetitions?30 ?Rating of Perceived Exertion (0-10)?8 ?Last Rep Status?Met Exertion Goal ?Exercise Plan?2 x week ?Notes?104-140# Goal ???Cervical Rotation Positioning & Goals:?Positioning?Seat Height?302 ?Back Pad?0 ?Head Pad?1 ?Notes?Footstool ?Goals?Low Goal Male (Max 80)?80 ?High Goal Male (Max 110)?110 ???Cervical Rotation Exercise Performance:?Exercise?Torque (in-lbs)?48 ?Rotation Left (60-72)?48 ?Rotation Right (60-72)?48 ?Left Repetitions?30 , L side first ?Right Repetitions?24 ?RPE (0-10)?5 ?Last Rep Status?Met Repetition Goal ?Exercise Plan?2 x week ???Torso Rotation Positioning & Goals:?Positioning?[place]?3 ?Footboard?2 ?Back Pad?1 ?Goals?Low Goal Male >Age 60 (35%BW)?60 ?High Goal Male > Age 60 (40%BW, Max 110)?70 ???Torso Rotation Exercise Performance:?Exercise?Torque (ft-lbs)?36 ?Rotation Left (48)?36 pt visually 42-42, can trial increase as able. ?Rotation Right (48)?36 ?Left Repetitions?30 ?Right Repetitions?30 ?RPE (0-10)?6 ?Last Rep Status?Met Exertion Goal, Met Repetition Goal ?Exercise Plan?2 x week ?Notes?60-70# Goal ???GLUTE Extension:?Exercise?Notes/Positioning?Upright ?Weight?15 ?Left Repetitions?20 ?Right Repetitions?20 ?RPE (0-10)?6 ?Last Rep Status?Met Exertion Goal, Met Repetition Goal ?Exercise Plan?2 x week ???Isotonic Exercise Machine Summary:?Exercise Summary?Increased weights for all Medx today, and this was well tolerated. .?Billing?[id number] (Therapeutic Exercise) Direct 1:1 Time= 35 mins.? Therapeutic Interventions: * Therapeutic Interventions: ???1.?*Home Exercise List: Stretches & Release ? Neck Stretching HEP : Cervical Flexion,Cervical Extension- Supported,Upper Trapezius,Levator Scapulae ? Low Back and Hip Stretching HEP : Single KTC (supine) both knees bent,Trunk Rotation (double knee),Hamstring (seated) ???2.?*Home Exercise List: Strength ? Mid-Back Strength HEP : Posture A, Band Row, Band Pull Apart (red theraband) ? Low Back & Core Strength HEP : Clamshell ? Hip & Core Strength HEP : Pallof press w/ blue theratube, Sit to Stand L1 ? Balance & Gait HEP : Static [...] Therapy Summary ? Movement Therapy Details : Intro'd the following:Therapeutic Exercises (55534) as follows:- Sit to stands no UE support- Staggered stance sit to stands no UE support (LLE back more challenging)- Narrow Rigo with red theraband- Band pull apart with red theraband- Alternate limb lift in four point (pt unable to lift RLE alongside LUE, therefore modified to LE lift in four point only for now)- hooklying on pillow parallel to spine and performs following mobility motions: shoulder flex<>neutral with palms clasped, Posture A arms, prolonged pectoral stretch.All activities to fatigue and required skilled instruction including verbal and tactile cues ? Billing : [id number] (Therapeutic Exercise) Direct 1:1 Time= 25 minutes ? Assessment: * Therapy Assessment and Plan: 1.?Therapy Session Assessment ? Summary : Pt reports to therapy today and is feeling fairly good, standing and ambulation are feeling easier tolerance-charlton. That said, transitioned to progression HEP with strengthen exercises with an emphasis on control with balance/speed, core engagement, and LE and mid thoracic mm contraction as well as thoracic/chest mobility. Able to progress weights in medX and this was all well tolerated 2.?Therapy Session Plan ? Plan Details : [...] and posterolateral hip strengthening Review/Progress Balance PRN,- Balance & coordination exercises - progressed 05/12/24,- Fxn'l gait endurance training- Education in terms of nutrition, sleep health- Functional training to be able to lift dog into truck (20 pounds),- Addition of postural strengthening Pt experiences intermittent diplopia 3.?Co-Signing Status ? AUTOMOTIVE SHOP FOREMAN Supervision : AUTOMOTIVE SHOP FOREMAN Direct Supervision: The therapy session was supervised by a licensed PT in accordance to [place] Board of PT statutes and rules 148.706 as an on-site observation of the treatment provided by AUTOMOTIVE SHOP FOREMAN and the plan of care was reviewed as appropriate. ? 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 Plan: * Treatment: * Procedure Codes:?80340 Thera peutic Exercise AUTOMOTIVE SHOP FOREMAN, Units: 4.00 , Modifiers: GP , CQ, Time (Mins): [id number] * Billing Information: * Visit Code:? * Procedure Codes:? 32942 Therapeutic Exercise AUTOMOTIVE SHOP FOREMAN. Units: 4.00. Time (Mins):60Modifiers: GP, CQ * Electronically co-signed by RAFIA Kinney on 06/14/2024 at 04:07 PM CAFE ASSOCIATE Sign off status: Completed true * Provider:?RAFIA Kinney Date:? Generated for Farhan morgan/Mague/eTransmitting on:?06/16/2024 02:31 PM CAFE ASSOCIATE History and Physical Notes * HPI (History of Present Illness) Category Sub-Category Detail Notes Therapy Visit Status Session Data Today's Session Date : 06/09/2024 Therapy Episode Status: Active Therapy Sessions Completed (#): 12 PT Goal Review Date: 05/26/2024 OT Goal Review Date: 05/31/2024 Physical Examination Category Sub-Category Detail Notes Lumbar Extension Exercise Performance Exercise Tor que (ft-lbs): 82 Extension ROM (0): 0 Flexion ROM (72): 39 Repetitions: 30 Rating of Perceived Exertion (0-10): 8 Last Rep Status: Met Exertion Goal Exercise Plan: 2 x week Notes: 104-140# Goal Lumbar Extension Positioning & Goals Positioning TDC: 21 CB: 285 Femur: 5 Other: Flat Rollers Goals Low Goal Male >60 (60%BW): 104 High Goal Male>60 (80%BW, Max 225): 140 Isotonic Exercise Machine Summary Billing [id number] (Therapeutic Exercise) Direct 1:1 Time= 35 mins Exercise Summary Increased weights fo r all Medx today, and this was well tolerated. Cervical Rotation Positioning & Goals Positioning Sea t Height: 302 Back Pad: 0 Head Pad: 1 Notes: Footstool Goals Low Goal Male (Max 80): 80 High Goal Male (Max 110): 110 Cervical Rotation Exercise Performance Exercise To rque (in-lbs): 48 Rotation Left (60-72): 48 Rotation Right (60-72): 48 Left Repetitions: 30 , L side first Right Repetitions: 24 RPE (0-10): 5 Last Rep Status: Met Repetition Goal Exercise Plan: 2 x week Torso Rotation Positioning & Goals Positioning [place]: 3 Footboard: 2 Back Pad: 1 Goals Low Goal Male >Age 60 (35%BW): 6 0 High Goal Male > Age 60 (40%BW, Max 110) : 70 Torso Rotation Exercise Performance Exercise Torqu e (ft-lbs): 36 Rotation Left (48): 36 pt visually 42-42 , can trial increase as able. Rotation Right (48): 36 Left Repetitions: 30 Right Repetitions: 30 RPE (0-10): 6 Last Rep Status: Met Exertio n Goal, Met Repetition Goal Exercise Plan: 2 x week Notes: 60-70# Goal GLUTE Extension Exercise Notes/Positioning: Uprigh t Weight: 15 Left Repetitions: 20 Right Repetitions: 20 RPE (0-10): 6 Last Rep Status: Met Exertion Goal, Met Repetition Goal Exercise Plan: 2 x week
--- OUTSIDE RECORDS SUMMARY | 2024-06-16 14:32 | XMS_ITS | Clinical Summary ---
Author Organization [facility] Address [address] [place] [address]. [place] [address] Care Team Providers Care Supervisor Grove Name Role Phone Segun Hopkins MD Primary Care Provider [phone] Allergies Active Allergy Reactions Criticality Noted Date Comments Gabapentin 03/23/2014 Penicillins 03/23/2014 Medications * This document contains information received from the source organization and may not represent a complete record from that organization. atorvastatin (LIPITOR) 10 MG tablet Take 10 [...] Take 50 mg by mouth At Bedtime 0 Active metoprolol succinate ER (TOPROL-XL) 25 MG 24 hr tablet Take 25 mg by mouth daily 0 Active doxycycline hyclate (VIBRAMYCIN) 100 MG capsule Take 100 mg by mouth 2 times daily 0 Active ibuprofen (ADVIL/MOTRIN) 200 MG tablet Take [...] the tongue every 5 minutes as needed 0 Active cholecalciferol (VITAMIN D-[address]) 25 MCG (1000 UT) TABS Take 1,000 Units by mouth daily Active lisinopril (ZESTRIL) 5 MG tabletIndications :Essential hypertension Take 1 tablet (5 mg) by mouth daily 30 tablet 1 0 Active clonazePAM (KLONOPIN) 1 MG tabletIndications :Alcohol withdrawal seizure with complication (H) 1 po bid x 7 days, then 0.5 qam and 1 qpm x 7 days, then 0.5 mg BID x 7 days, then 0.5 mg at bedtime x 7 days 35 tablet 0 Active levETIRAcetam (KEPPRA) 1000 MG tabletIndications :Alcohol withdrawal seizure with complication (H) 1000 mg po bid x 14 days, then 500 mg q am and 1000 mg qpm x 7 days, then 500 mg po bid x 7 days, then 500 mg po at bedtime x 7 days. 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 Acute alcohol intoxication 05/07/2016 Alcohol dependence with withdrawal with complica tion 05/07/2016 Nicotine dependence 05/07/2016 Hypertensive heart disease without heart failure 04/29/2016 Overview (10/15/2019): Hypertension (HTN) NOS Alcohol withdrawal 10/09/2015 Cannabis [...] Recorded Sex Assigned at Not on file Legal Sex Male 3:06 AM HAMMER DRIVER Gender Identity Not on file Sexual Orientation [...] 188 cm (6' 2) 10/15/2019 3:55 PM HAMMER DRIVER Body Mass Index 27.14 10/15/2019 3:55 PM HAMMER DRIVER Plan of Treatment Not on file Insurance none (Work) [id number] [place] [address] [facility] BCBS OF [place] Advance Directives For more information, please contact: [phone] * Full Code (Latest Code Status on [...] 10:25 AM 05/07/2016 6:52 PM Care Teams Supervisor Grove Relationship Specialty Start Date End Date Segun Hopkins MD [address] [place] [address] PCP - General Family Practice 10/09/15
--- OUTSIDE RECORDS SUMMARY | 2024-06-16 14:32 | XMS_ITS | Clinical Summary ---
Author Organization [facility] Address [address] [place] [address] Care Team Providers Care Assistant Professor Of Criminal Justice Name Role Phone Segun Hopkins MD Primary Care Provider [phone] Source Comments You are receiving this document [...] for each transition of care or referral. [email or web address] Allergies Active Allergy Reactions Criticality Noted Date [...] Comments Blood Pressure 130/69 07/24/2021 9:16 AM CLOTH SPREADER SCREEN PRINTING Pulse 59 07/24/2021 9:16 AM CLOTH SPREADER SCREEN PRINTING Temperature 37 ??C (98.6 ??F) 07/24/2021 9:16 AM CLOTH SPREADER SCREEN PRINTING Respiratory Rate 18 07/24/2021 9:15 AM CLOTH SPREADER SCREEN PRINTING Oxygen Saturation 98% 07/24/2021 9:15 AM CLOTH SPREADER SCREEN PRINTING Inhaled Oxygen Concentration - - Weight 92 [...] 1955 Adult Preventive Visit 1975 Cholesterol 1992 Pneumococcal 65+ Yrs (3 - PPSV23 or PCV20) 01/27/2024 01/04/2021, 01/26/2019, 05/09/2016, Additional history exists COVID-19 Vaccine (3 - 2023- season) 2024 11/23/2020, 10/26/2020 Influenza (#1) 2024 05/19/2021, 10/08, 06/04/2016, Additional history exists DTaP/Tdap/Td (3 - Tdap) 05/02/2030 05/02/2020, 07/31 RSV (1 - 1-dose 75+ series) 2032 Zoster/Shingles Completed 04/24/2021, 01/04/2021 HepA Aged Out [...] on patient's age to complete this topic RSV Aged Out No longer eligi ble based on patient's age to complete this topic MCV4 Aged Out No longer eligi ble based on patient's age to complete this topic Advance Directives * Full Code (Latest Code Status on File) Date Activated Date Inactivated Comments 01/30/2017 2:50 PM 01/31/2017 1:50 PM Care Teams Assistant Professor Of Criminal Justice Relationship Specialty [place] [address] [facility] [place] [address] PCP - General Family Practice 01/30/17
--- OUTSIDE RECORDS SUMMARY | 2024-06-16 14:32 | XMS_ITS | Encounter Summary ---
Author Organization [facility] Address [address] [address] Care Team Providers Care Hand Glass Cutter Name Role Phone Segun Hopkins MD Primary Care Provider [phone] Encounter Details Date Type Department Care Team (Late st Contact Info) Description 01/30/2017 Correspondence [facility] Radiology [address] [place] [address] Radiology, Provider MRI SAFETY SHEET AND COMPATIBILITY [...] on filedocumented in this encounter Care Teams Hand Glass Cutter Relationship Specialty [place] [address] [place] [address] PCP - General Family Practice 01/30/17 documented as of this encounter
--- OUTSIDE RECORDS SUMMARY | 2024-06-16 14:32 | XMS_ITS | Encounter Summary ---
Author Organization [facility] Address [address] [place] [address]. [place] [address] Care Team Providers Care Concrete Floor Installer Name Role Phone Segun Hopkins MD Primary Care Provider [phone] Reason for Visit * Reason Onset Date Comments MH/CD Inpatient 10/09/2015 Encounter Details Date Type Department Care Team ([facility] Contact Info) Description 10/09/2015 Telephone [facility] Behavioral Health Intake [address] [place] [address] Generic, Behavioral Intake, MH/CD Inpatient Social History Tobacco Use Types Packs/Day Years Used Date Smoking Tobacco: Every Day Cigarettes Alcohol Use Standard Drinks/Week Comments Not Asked 0 (1 standard drink = 0.6 oz pur e alcohol) Sex and Gender Information Value Date Recorded Sex Assigned at Not on file Legal Sex Male 3:06 AM PUNCH MACHINE HAND Gender Identity Not on file Sexual Orientation Not on file documented as of this encounter Miscellaneous Notes * Telephone Encounter - Kaur Durant - 10/09/2015 12:18 PM CST S: shy gave clinical saying she did a virtual eval on pt who is in [facility] er due to intoxication. He was [...] said she will inform er dr. hodges H MACHINE HAND documented in this encounter Plan of Treatment Not on file documented as of this encounter Visit Diagnoses Not on filedocumented in this encounter Care Teams Concrete Floor Installer Relationship Specialty Start Date End Date Segun Hopkins MD [facility] [address] [place] [address] PCP - General Family Practice 10/09/15 documented as of this encounter
--- OUTSIDE RECORDS SUMMARY | 2024-06-16 14:32 | XMS_ITS | Patient Health Record ---
Author Organization [facility] Address [address] [facility] [address] [place] [address] Care Team Providers Care Seam Press Operator Name Role Phone Jagruti Tyler Primary Care Provider UnavailKarsten James Unavailable [phone] Shira Chen Unavailable [phone] Sean Villa Unavailable [phone] Beau Rosario Unavailable [phone] Ana Pringle Unavailable [phone] Allergies Allergen (clinical drug ingredient) Drug/Non Drug Allergy documented on EMR Reaction Allergy Type Onset Date Status gabapentin GABAPENTIN Unknown Drug Allergy 03/23/2014 Acti ve levetiracetam Keppra Bailey Drug Allergy Act nikolas Substance with penicillin structure and antibacterial mechanism of action (substance) PENICILLINS Unknown Drug Allergy 03/23/2014 Active Reason For Referral Reason REHAB PT and OT: MED X CERVICAL-LUMBAR Please include work on posture and gait. 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) Diagnosis 3 Segmental and somati c dysfunction of thoracic region (M99.02) Diagnosis 4 Segmental and somati c dysfunction of lumbar region (M99.03) Diagnosis 5 Other abnormalities of gait and mobility (R26.89) Diagnosis 6 Unspecified lack of coordination (R27.9) Diagnosis 7 Postural kyphosis, s ite unspecified (M40.00) Diagnosis 8 Unspecified convulsi ons (R56.9) Referral Organization [facility] Referring Provider First Name Karsten Referring Provider Last Name Luke Referring Provider Speciality Occupation al Medicine Referred Organization [facility] Referred Provider Abrahan Granados Referred Address [address] [place], [place],[address], Referred Provider Specialty Rehabilitati on General Notes Liana Quispe 04/25/20 11:05:18 AM >BCBS no JJ sierra Ok to schedule, Dinorah Rivera 04/25/2024 02:04:29 PM >lmtcb and sent TE to sched 1, Dinorah Rivera 04/25/2024 02:11:04 PM >Pt scheduled Referral Priority Routine Medications Medication SIG (Take, Route, Frequency, Duration) Notes Start Date End Date Status Lacosamide 100 MG 1 tablet Orally Twice a day 04/25/2024 Active Omeprazole 20 MG Take 20 mg by mouth at bedtime Oral Imported from [place] (25-Oct-2020 at 08:10:48 AM) Active clonazePAM 1 MG 0.5 tablet as needed for anxiety or seizures Orally Twice a day 04/25/2024 Active Doxycycline Hyclate 100 MG Take 100 mg by mouth 2 times daily Oral Imported from [place] (25-Oct-2020 at 08:10:48 AM) 09/13/2019 Active Metoprolol Tartrate 25 MG 1 tablet with food Orally Twice a day 04/25/2024 Active Atorvastatin Calcium 10 MG Take 10 mg by mouth daily Oral Imported from [place] (25-Oct-2020 at 08:10:48 AM) Active Apixaban 5 MG 1 tablet Orally Twice a day 04/25/2024 Active Thiamine HCl 100 MG Take 100 mg by mouth daily Oral Imported from [place] (25-Oct-2020 at 08:10:48 AM) Active Ibuprofen 200 MG Take 200 mg by mouth every 6 hours as needed for mild pain Oral Imported from [place] (25-Oct-2020 at 08:10:48 AM) Active Calcium Carbonate 1250 (500 Ca) MG 2 tablets Orally Once a day 04/25/2024 Active Sodium Chloride 1 GM Oral 10/30/2020 Active Nicotine Polacrilex 2 MG 1 lozenge as needed Mouth/Throat Every 1-2 hours 04/25/2024 Active Lidocaine 5 % 1 patch remove after 12 hours Externally Once a day 04/25/2024 Active Depakote ER 250 MG 1 tablet Orally Once a day 04/25/2024 Active QUEtiapine Fumarate 100 MG 1.5 tablets Orally Once a day 04/25/2024 Active Depakote ER 500 MG 2 tablets Orally Twice a day 04/25/2024 Active lamoTRIgine 25 MG 1 tablet Orally Twice a day 04/25/2024 Active Immunizations Vaccine Route Administration Date Status Comme nts Pneumococcal Unknown 05/09/2016 Administered Social History Tobacco Use: Social History Observation Description Date Details (start date - stop date) Never Smoker NA - NA Tobacco Use/Smoking: Question Answer Notes Are you [...] drinks (1 point) Points 4 Interpretation Positive Problems Problem Type SNOMED Code ICD Code Onset Dates Problem Status W/U Status Risk Notes Problem Cerebellar ataxia (disorder) (86712330) 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) Active confirmed Problem Muscle wasting disorder (59842239) Muscle wasting and atrophy, not elsewhere classified, multiple sites (M62.59) Active confirmed Problem Bipolar disorder (14284881) Bipolar disorder (F31.9) 10/18/19 20 Active confirmed Problem Psychoactive substance dependence (6477708) Other psychoactive substance dependence, uncomplicated (F19.20) 10/31/19 21 Active confirmed Problem Hereditary disorder of nervous system (295370522) Hereditary and idiopathic neuropathy, unspecified (G60.9) 10/31/19 Active confirmed Problem Postural kyphosis (943697598) Postural kyphosis, 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) 10/31/19 21 Active confirmed Problem Inflammatory spondylopathy (390300095) Unspecified inflammatory spondylopathy, 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) 10/31/19 21 Active confirmed Problem Segmental and somatic dysfunction (198885173) Segmental and somatic dysfunction of cervical region (M99.01) 10/31/19 21 Active confirmed Problem Segmental and somatic dysfunction (937065187) Segmental and somatic dysfunction of thoracic region (M99.02) 10/31/19 21 Active confirmed Problem Somatic dysfunction of lumbar region (537809850) Segmental and somatic dysfunction of lumbar region (M99.03) 10/31/19 21 Active confirmed Problem Abnormal gait (41532780) Other abnormalities of gait and mobility (R26.89) 10/31/19 Active confirmed Problem Lack of coordination (760028689) Unspecified lack of coordination (R27.9) 10/31/19 Active confirmed Problem Malaise (773023135) Other malaise (R53.81) 10/31/19 Active confirmed Problem Seizure (36671181) Unspecified convulsions (R56.9) 10/31/19 Active confirmed Problem Cervicalgia (03894162) Cervicalgia (M54.2) 10/31/19 Active confirmed Vital Signs Blood pressure diastolic 82 mm Hg 04/25/2024 Height 6ft in 04/25/2024 Blood pressure systolic 126 mm Hg 04/25/2024 Weight 174.8 lbs 04/25/2024 BMI 23.7 kg/m2 04/25/2024 Encounters Encounter Location Date Provider Diagnosis [facility] [address] [place] [address] 04/25/2024 Karsten Butler Segmental and somatic dysfunction of cervical region M99.01 ; 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 G32.81 ; Segmental and somatic dysfunction of thoracic region M99.02 ; Segmental and somatic dysfunction of lumbar region M99.03 ; Other abnormalities of gait and mobility R26.89 ; Unspecified lack of coordination R27.9 and Unspecified convulsions R56.9 [facility] [address] [place] [address] 04/27/2024 Ana Pringle 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 G32.81 ; Segmental and somatic dysfunction of cervical region M99.01 ; Segmental and somatic dysfunction of thoracic region M99.02 ; Segmental and somatic dysfunction of lumbar region M99.03 ; Other abnormalities of gait and mobility R26.89 and Unspecified lack of coordination R27.9 [facility] [address] [place] [address] 05/10/2024 Sean Villa 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 G32.81 ; Segmental and somatic dysfunction of cervical region M99.01 ; Segmental and somatic dysfunction of thoracic region M99.02 ; Segmental and somatic dysfunction of lumbar region M99.03 ; Other abnormalities of gait and mobility R26.89 and Unspecified lack of coordination R27.9 [facility] [address] [place] [address] 05/12/2024 Sean Villa 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 G32.81 ; Segmental and somatic dysfunction of cervical region M99.01 ; Segmental and somatic dysfunction of thoracic region M99.02 ; Segmental and somatic dysfunction of lumbar region M99.03 ; Other abnormalities of gait and mobility R26.89 and Unspecified lack of coordination R27.9 [facility] [address] [place] [address] 05/17/2024 Ana Yary 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 G32.81 ; Segmental and somatic dysfunction of cervical region M99.01 ; Segmental and somatic dysfunction of thoracic region M99.02 ; Segmental and somatic dysfunction of lumbar region M99.03 ; Other abnormalities of gait and mobility R26.89 and Unspecified lack of coordination R27.9 [facility] [address] [place] [address] 05/19/2024 Ana Canal Fulton 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 G32.81 ; Segmental and somatic dysfunction of cervical region M99.01 ; Segmental and somatic dysfunction of thoracic region M99.02 ; Segmental and somatic dysfunction of lumbar region M99.03 ; Other abnormalities of gait and mobility R26.89 and Unspecified lack of coordination R27.9 [facility] [address] [place] [address] 05/24/2024 Beau Rosario 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 G32.81 ; Segmental and somatic dysfunction of cervical region M99.01 ; Segmental and somatic dysfunction of thoracic region M99.02 ; Segmental and somatic dysfunction of lumbar region M99.03 ; Other abnormalities of gait and mobility R26.89 and Unspecified lack of coordination R27.9 [facility] [address] [place] [address] 05/26/2024 Ana Yary 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 G32.81 ; Segmental and somatic dysfunction of cervical region M99.01 ; Segmental and somatic dysfunction of thoracic region M99.02 ; Segmental and somatic dysfunction of lumbar region M99.03 ; Other abnormalities of gait and mobility R26.89 and Unspecified lack of coordination R27.9 [facility] [address] [facility] [place] [address] 05/31/2024 Sean Villa 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 G32.81 ; Segmental and somatic dysfunction of cervical region M99.01 ; Segmental and somatic dysfunction of thoracic region M99.02 ; Segmental and somatic dysfunction of lumbar region M99.03 ; Other abnormalities of gait and mobility R26.89 ; Unspecified lack of coordination R27.9 and Cervicalgia M54.2 [facility] [address] [place] [address] 06/02/2024 Ana Yary 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 G32.81 ; Segmental and somatic dysfunction of cervical region M99.01 ; Segmental and somatic dysfunction of thoracic region M99.02 ; Segmental and somatic dysfunction of lumbar region M99.03 ; Other abnormalities of gait and mobility R26.89 ; Unspecified lack of coordination R27.9 and Cervicalgia M54.2 [facility] [address] [place] [address] 06/07/2024 Ana Canal Fulton 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 G32.81 ; Segmental and somatic dysfunction of cervical region M99.01 ; Segmental and somatic dysfunction of thoracic region M99.02 ; Segmental and somatic dysfunction of lumbar region M99.03 ; Other abnormalities of gait and mobility R26.89 ; Unspecified lack of coordination R27.9 and Cervicalgia M54.2 [facility] [address] [place] [address] 06/09/2024 Shira Chen 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 G32.81 ; Segmental and somatic dysfunction of cervical region M99.01 ; Segmental and somatic dysfunction of thoracic region M99.02 ; Segmental and somatic dysfunction of lumbar region M99.03 ; Other abnormalities of gait and mobility R26.89 ; Unspecified lack of coordination R27.9 and Cervicalgia M54.2 [facility] [address] [place] [address] 04/25/2024 Karsten Butler [facility] [address] [place] [address] 04/25/2024 Karsten Butler Assessments Encounter Date Diagnosis (ICD Code) Assessment Notes Treatment Notes Treatment Clinical Notes 04/25/2024 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 (ICD-10 - G32.81) 04/25/2024 Segmental and somatic dysfunction of cervical region (ICD-10 - M99.01) 04/27/2024 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 (ICD-10 - G32.81) 05/10/2024 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 (ICD-10 - G32.81) 05/12/2024 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 (ICD-10 - G32.81) 05/17/2024 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 (ICD-10 - G32.81) 05/19/2024 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 (ICD-10 - G32.81) 05/24/2024 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 (ICD-10 - G32.81) 05/26/2024 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 (ICD-10 - G32.81) 05/31/2024 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 (ICD-10 - G32.81) 06/02/2024 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 (ICD-10 - G32.81) 06/07/2024 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 (ICD-10 - G32.81) 06/09/2024 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 (ICD-10 - G32.81) 06/09/2024 Segmental and somatic dysfunction of cervical region (ICD-10 - M99.01) 05/31/2024 Segmental and somatic dysfunction of cervical region (ICD-10 - M99.01) 05/31/2024 Segmental and somatic dysfunction of thoracic region (ICD-10 - M99.02) 06/02/2024 Segmental and somatic dysfunction of cervical region (ICD-10 - M99.01) 06/07/2024 Segmental and somatic dysfunction of cervical region (ICD-10 - M99.01) 05/26/2024 Segmental and somatic dysfunction of cervical region (ICD-10 - M99.01) 05/24/2024 Segmental and somatic dysfunction of cervical region (ICD-10 - M99.01) 05/19/2024 Segmental and somatic dysfunction of cervical region (ICD-10 - M99.01) 05/17/2024 Segmental and somatic dysfunction of cervical region (ICD-10 - M99.01) 05/12/2024 Segmental and somatic dysfunction of cervical region (ICD-10 - M99.01) 05/10/2024 Segmental and somatic dysfunction of cervical region (ICD-10 - M99.01) 04/27/2024 Segmental and somatic dysfunction of cervical region (ICD-10 - M99.01) 04/25/2024 Segmental and somatic dysfunction of thoracic region (ICD-10 - M99.02) 04/25/2024 Segmental and somatic dysfunction of lumbar region (ICD-10 - M99.03) 04/27/2024 Segmental and somatic dysfunction of thoracic region (ICD-10 - M99.02) 05/10/2024 Segmental and somatic dysfunction of thoracic region (ICD-10 - M99.02) 05/12/2024 Segmental and somatic dysfunction of thoracic region (ICD-10 - M99.02) 05/17/2024 Segmental and somatic dysfunction of thoracic region (ICD-10 - M99.02) 05/19/2024 Segmental and somatic dysfunction of thoracic region (ICD-10 - M99.02) 05/24/2024 Segmental and somatic dysfunction of thoracic region (ICD-10 - M99.02) 05/26/2024 Segmental and somatic dysfunction of thoracic region (ICD-10 - M99.02) 06/07/2024 Segmental and somatic dysfunction of thoracic region (ICD-10 - M99.02) 06/02/2024 Segmental and somatic dysfunction of thoracic region (ICD-10 - M99.02) 05/31/2024 Segmental and somatic dysfunction of lumbar region (ICD-10 - M99.03) 06/09/2024 Segmental and somatic dysfunction of thoracic region (ICD-10 - M99.02) 06/09/2024 Segmental and somatic dysfunction of lumbar region (ICD-10 - M99.03) 05/31/2024 Other abnormalities of gait and mobility (ICD-10 - R26.89) 06/02/2024 Segmental and somatic dysfunction of lumbar region (ICD-10 - M99.03) 06/07/2024 Segmental and somatic dysfunction of lumbar region (ICD-10 - M99.03) 05/26/2024 Segmental and somatic dysfunction of lumbar region (ICD-10 - M99.03) 05/24/2024 Segmental and somatic dysfunction of lumbar region (ICD-10 - M99.03) 05/19/2024 Segmental and somatic dysfunction of lumbar region (ICD-10 - M99.03) 05/17/2024 Segmental and somatic dysfunction of lumbar region (ICD-10 - M99.03) 05/12/2024 Segmental and somatic dysfunction of lumbar region (ICD-10 - M99.03) 05/10/2024 Segmental and somatic dysfunction of lumbar region (ICD-10 - M99.03) 04/27/2024 Segmental and somatic dysfunction of lumbar region (ICD-10 - M99.03) 04/25/2024 Other abnormalities of gait and mobility (ICD-10 - R26.89) 04/25/2024 Unspecified lack of coordination (ICD-10 - R27.9) 04/27/2024 Other abnormalities of gait and mobility (ICD-10 - R26.89) 05/10/2024 Other abnormalities of gait and mobility (ICD-10 - R26.89) 05/12/2024 Other abnormalities of gait and mobility (ICD-10 - R26.89) 05/17/2024 Other abnormalities of gait and mobility (ICD-10 - R26.89) 05/19/2024 Other abnormalities of gait and mobility (ICD-10 - R26.89) 05/24/2024 Other abnormalities of gait and mobility (ICD-10 - R26.89) 05/26/2024 Other abnormalities of gait and mobility (ICD-10 - R26.89) 06/07/2024 Other abnormalities of gait and mobility (ICD-10 - R26.89) 06/02/2024 Other abnormalities of gait and mobility (ICD-10 - R26.89) 05/31/2024 Unspecified lack of coordination (ICD-10 - R27.9) 06/09/2024 Other abnormalities of gait and mobility (ICD-10 - R26.89) 06/09/2024 Unspecified lack of coordination (ICD-10 - R27.9) 05/31/2024 Cervicalgia (ICD-10 - M54.2) 06/02/2024 Unspecified lack of coordination (ICD-10 - R27.9) 06/07/2024 Unspecified lack of coordination (ICD-10 - R27.9) 05/26/2024 Unspecified lack of coordination (ICD-10 - R27.9) 05/24/2024 Unspecified lack of coordination (ICD-10 - R27.9) 05/19/2024 Unspecified lack of coordination (ICD-10 - R27.9) 05/17/2024 Unspecified lack of coordination (ICD-10 - R27.9) 05/12/2024 Unspecified lack of coordination (ICD-10 - R27.9) 05/10/2024 Unspecified lack of coordination (ICD-10 - R27.9) 04/27/2024 Unspecified lack of coordination (ICD-10 - R27.9) 04/25/2024 Unspecified convulsions (ICD-10 - R56.9) 06/02/2024 Cervicalgia (ICD-10 - M54.2) 06/09/2024 Cervicalgia (ICD-10 - M54.2) 06/07/2024 Cervicalgia (ICD-10 - M54.2) 04/25/2024 Other I, Kianna Stanford , am serving as a scribe to document services personally performed by Karsten Butler MD, based upon my observations and the provider's statements to me. All documentation has been reviewed by the aforementioned doctor prior to being entered into the official medical record. I, Karsten Butler MD attest that the above named individual is acting in scribe capacity, has observed my performance of the services and has documented them in accordance with my direction. The documentation recorded by the scribe accurately reflects the service I personally performed and the decisions made by me. Plan Of Treatment Next Appt Details Provider Name:Bonnie brunson, 06/21/2024 08:00:00 AM, [address] [place], [address], Provider Name:Ana diggs, 06/23/2024 08:00:00 AM, [address] [place], [address], Provider Name:Sean henry, 06/28/2024 08:00:00 AM, [address] [place], [address], Provider Name:Sean henry, 07/01/2024 08:00:00 AM, [address], [place], [address], Provider Name:Sean henry, 07/05/2024 08:00:00 AM, [address], [place], [address], Insurance Providers Payer Name Payer Address Payer Phone Subscriber Number Group Number Insured Name Patient Relationship to Insured Coverage Start Date Coverage End Date [facility] [employer] [address] [address] [place] [address] [id number] Salvatore Mahmood Self - patient is the insured 4 Medicare Part B [employer] [address] [place] [address] [id number] Salvatore Mahmood Self - patient is the insured 2 Medical (General) History Medical History History ICD Code Depression Heart disease Lung disease Lung cancer (2017) Chemical dependency Hypertension Anxiety Coronary artery disease Surgical History Surgery Date(Month/Year) Hospitalization History Reason Date(Month/Year) COVID-19 and penumonia
--- OUTSIDE RECORDS SUMMARY | 2024-06-16 14:32 | XMS_ITS | Clinical Summary ---
Author Organization [facility] Address [place], [place] [address] Care Team Providers Care It Systems Administrator Name Role Phone Segun Hopkins MD Primary Care Provider Unavail Lucy Unger Unavailable [phone] Allergies Active Allergy Reactions Criticality Noted Date [...] Encounters Date Type Department Care Team Description 05/31/2024 8:30 AM CDT Office Visit [facility] [address] [place] [phone] Izabella Yao, AuD Hearing Aid (Picking up repaired hearing aid) 05/31/2024 Travel 05/26/2024 Telephone [facility] [address] [place] [address] Sung Lang, Bossman Questions (LT hearing aide?) 05/06/2024 2:30 PM CDT Office Visit [facility] [address] [place] [address] Sung Lang, AuD Hearing Aid 05/06/2024 Travel 03/16/2024 4:00 PM CDT Office Visit [facility] [address] [place] [phone] Sung Lang, AuD Hearing Aid 03/16/2024 Travel from Last 3 Months Social History Tobacco [...] 1 - PCV) 2022 COVID-19 vaccine series (2023- season) 2024 11/24/2022, 11/20/2021, 11/23/2020, Additional history exists Influenza for age 65+ 04/10/2024 Advance Directives * Full Code (Latest Code Status on File) Date Activated Date Inactivated Comments 10/05/2010 2:33 PM 10/08/2010 2:50 PM Care Teams It Systems Administrator Relationship Specialty Start Date End Date Segun Hopkins MD PCP - General 03/17/08 Lucy Albert [facility] [address] [facility] [address] Audiology 02/09/17
--- OUTSIDE RECORDS SUMMARY | 2024-06-16 14:32 | XMS_ITS | Referral Summary ---
Author Organization [facility] Address [address] [place] [address]. 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 [address] [place] [address] PCP - General Family Practice 10/09/15
== END 2024-06-16 14:29 | disposition home or self-care (01) ==
LOC: RAD 14:29
PROVIDERS: PCP Family Medicine; Visit Provider Internal Medicine Hematology & Oncology
DX: C34.31 Malignant neoplasm of lower lobe, right bronchus or lung (principal); J90 Pleural effusion, not elsewhere classified
CPT/HCPCS: 78815; A9552

== ENCOUNTER 2024-06-24 08:01 | Outpatient (CLI) | payer MEDICARE, SELFPAY ==
--- OUTSIDE RECORDS SUMMARY | 2024-06-24 08:05 | XMS_ITS ---
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) 06/23/2024 Segmental and somati c dysfunction of cervical region (ICD-10 - M99.01) 06/23/2024 Segmental and somati c dysfunction of thoracic region (ICD-10 - M99.02) 06/23/2024 Segmental and somati c dysfunction of lumbar region (ICD-10 - M99.03) 06/23/2024 Other abnormalities of gait and mobility (ICD-10 - R26.89) 06/23/2024 Unspecified lack of coordination (ICD-10 - R27.9) 06/23/2024 Cervicalgia (ICD-10 - M54.2) Plan Of Treatment Next Appt Details Provider Name:Sean henry, 06/28/2024 08:00:00 AM, [address], [place], [address], Provider Name:Sean Singh elaine, 07/01/2024 08:00:00 AM, [address], [place], [address], Provider Name:Sean Singh elaine, 07/05/2024 08:00:00 AM, [address], [place], [address], Progress Notes * Salvatore MAHMOOD HDOB:[birth year] (69 yo M)Acc No.[id number]:06/23/2024 Daily Note Patient:?Salvatore MAHMOOD Provider:?Ana Pringle DPT :1955???Age:69 Y???Sex:Male [place] e:06/23/2024 Address:[address] [place], [place] [address] Pcp:Jagruti Tyler Subjective: * Chief Complaints: * HPI: ???Therapy Visit Status:?Session Data?Today's Session Date?06/23/2024 ?Therapy Episode Status?Active ?Therapy Sessions Completed (#)?13 ?PT Goal Review Date?05/26/2024 ?OT Goal Review Date?05/31/2024 ???Therapy Visit Subjective:?Pt had to cx last appt on due to being sick w/ some sort of stomach bug he thinks. Notes that he has been falling backwards in the past 2 wks more than previous, some of the falls he did not remember but his told him. Does mention he thinks he hit his head w/ one of these falls in the past week or 2, thought he may have had a concussion, did mention some nausea/vomiting and more dizziness than usual. Had a PET scan done a few day agos, was told there might be a possibility of cancer in the same R lung as previous,?having an MRI on Thu to confirm this and has an MRI of his brain tmrw.?Due to all of this, he has not been practicing his balance or HEP at home. Objective: * Vitals:? Therapeutic Interventions: * Therapeutic Interventions: ???1.?*Home Exercise [...] all exercises:- SLS w/ 1 UE support on railing, held for 60 secs bilat, slight ant/post sway but no LOB- Side steps w/ marching, holding 1-2 secs at top x 2 sets of 12 ft w/ BUE support on railing,*Took seated breaks b/w exercises, needing decreased time b/w exercises todaySBA provided for all exercises by PTExercise today was limited, see assessment below for more details ? Billing : [id number] (Neuro-muscular Re-Ed) Direct 1:1 Time= 25 mins ? Assessment: * Therapy Assessment and Plan: 1.?Therapy Session Assessment ? Summary : Pt comes in mentioning that he was sick on , clarified that he had stomach bug-like Sx. After discussing for a while as we started w/ balance exercises, he mentioned that he has had more falls in the past 2 wks, mainly falling backwards but he does not remember all of these falls. His had to inform him a few times of these falls. Did hit his head on one of these falls, the back of his head, and he does mention having some nausea/vomiting Sx afterwards, thought he may have a concussion. He did mention that he had a PET scan done a few days ago and has an MRI schl'd for tmrw, these were done due to potential of his lung cancer returning but he also has an MRI for his brain tmrw. He did mention to me he was not checked out after these falls and did not mention them to his doctor. Decided to end session early, skipping MedX machines and only performing a few balance exercises. After conferring w/ Dr. Butler, it was highly suggested they rule out any potential of brain bleed or cancer mets in tmrw's MRI of his brain. Discussed this w/ Shreyas and he was agreeable to bring it to his provider's attention tmrw, he will be at [facility] in [place] for this imaging and then meets w/ his oncologist on Thursday of next week 06/29. Pt was hesistant to bring it to his doctor's attention but after talking through the importance of ruling out anything additionally serious, he was agreeable. He felt safe to leave, had him sit and drink water before leaving the clinic. He plans on being here next week for appt's and updating us when he gets his results. Due to the safety of the pt, session was limited to minimal exertion today as determined by myself. 2.?Therapy Session Plan ? Plan Details : [...] of postural strengthening Pt experiences intermittent diplopia ? 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 Plan: * Treatment: * Procedure Codes:?64023 Neuro muscular Reeducation PT, Units: 2.00 , Modifiers: GP , Time (Mins): 939547 * Billing Information: * Visit Code:? * Procedure Codes:? 91958 Neuromuscular Reeducation PT. Units: 2.00. Time (Mins):25Modifiers: GP * H STRAIGHTENER AND HEATER Sign off status: Completed true * Provider:?Ana Pringle DPT Date:? Generated for Farhan morgan/Mague/Besssmitting on:?06/24/2024 08:05 AM TORCH STRAIGHTENER AND HEATER History and Physical Notes * HPI (History of Present Illness) Category Sub-Category Detail Notes Therapy Visit Status Session Data Today's Session Date : 06/23/2024 Therapy Episode Status: Active Therapy Sessions Completed (#): 13 PT Goal Review Date: 05/26/2024 OT Goal Review Date: 05/31/2024
--- OUTSIDE RECORDS SUMMARY | 2024-06-24 08:05 | XMS_ITS ---
Author Organization [facility] Address [address] [place] [address] [address] [place] [address] Care Team Providers Care Wood Buffer Name Role Phone Jagruti Tyler Primary Care Provider Karsten Lee Unavailable [phone] Bonnie Alfredo Unavailable [phone] REASON FOR VISIT cx-sick Encounters Encounter Location Date Provider Diagnosis [facility] [address] [place] [address] 06/21/2024 Bonnie Alfredo Plan Of Treatment Next Appt Details Provider Name:Sean henry, 06/28/2024 08:00:00 AM, [address] [facility] [place], [address], Provider Name:Sean henry, 07/01/2024 08:00:00 AM, [address] [place], [address], Provider Name:Sean henry, 07/05/2024 08:00:00 AM, [address], [place], [address], Progress Notes * Salvatore MAHMOOD HDOB:[birth year] (69 yo M)Acc No.[id number]:06/21/2024 Daily Note Patient:?Salvatore MAHMOOD Provider:?RAFIA Hamilton :1955???Age:69 Y???Sex:Male [place] e:06/21/2024 Address:[address] [place], [place] Pcp:Jagruti Tyler Subjective: * Chief Complaints: * HPI: ???Therapy Visit Status:?Session Data?Today's Session Date?06/09/2024 ?Therapy Episode Status?Active ?Therapy Sessions Completed (#)?12 ?PT Goal Review Date?05/26/2024 ?OT Goal Review Date?05/31/2024 Objective: Therapeutic Interventions: * Therapeutic Interventions: ???1.?*Home Exercise [...] Therapy Details : Intro'd the following:Therapeutic Exercises (61229) as follows:- Sit to stands no UE support- Staggered stance sit to stands no UE support (LLE back more challenging)- Narrow [place] with red theraband- Band pull apart with [...] verbal and tactile cues ? Billing : [id number] (Therapeutic Exercise) Direct 1:1 Time= 25 minutes ? Assessment: * Therapy Assessment and Plan: 1.?Therapy Session Plan ? Plan Details : *Patient [...] postural strengthening Pt experiences intermittent diplopia ? Plan: * Treatment: * Billing Information: * Visit Code:? * Procedure Codes:? * Electronic signature of RAFIA Camacho on 06/24/2024 at 08:05 AM ARTIST SUSPECT Sign off status: Pending * Provider:?RAFIA Hamilton Date:?06/21 Generated for Farhan morgan/Mague/Claudine on:?06/24/2024 08:05 AM ARTIST SUSPECT History and Physical Notes * HPI (History of Present Illness) Category Sub-Category Detail Notes Therapy Visit Status Session Data Today's Session Date : 06/09/2024 Therapy Episode Status: Active Therapy Sessions Completed (#): 12 PT Goal Review Date: 05/26/2024 OT Goal Review Date: 05/31/2024
--- OUTSIDE RECORDS SUMMARY | 2024-06-24 08:05 | XMS_ITS ---
Author Organization [facility] Address [address] [facility] [address] [place] [address] Care Team Providers Care Vamp Maker Name Role Phone Jagruti Tyler Primary Care Provider Karsten Lee Unavailable [phone] Shira Chen Unavailable [phone] Encounters Encounter Location Date Provider Diagnosis [facility] [address] [place] [address] 06/09/2024 Shira Chen Cerebellar ataxia in diseases [...] henry, 06/28/2024 08:00:00 AM, [address], [place], [address], Provider Name:Sean henry, 07/01/2024 08:00:00 AM, [address], [place], [address], Provider Name:Sean Singh elaine, 07/05/2024 08:00:00 AM, [address], [place], [address], Progress Notes * Salvatore MAHMOOD HDOB:[birth year] (68 yo M)Acc No.[id number]:06/09/2024 Daily Note Patient:?Salvatore MAHMOOD Provider:?RAFIA Kinney?Resour ce:Lauren Adan :1955???Age:68 Y???Sex:Male [place] e:06/09/2024 [facility] [facility] Pcp:Jagruti Tyler Subjective: * Chief Complaints: * [...] Plan?2 x week ???Torso Rotation Positioning & Goals:?Positioning?Springer?3 ?Footboard?2 ?Back Pad?1 ?Goals?Low Goal Male >Age [...] Medx today, and this was well tolerated. .?Billing?78299 (Therapeutic Exercise) Direct 1:1 Time= 35 mins.? [...] Therapy Details : Intro'd the following:Therapeutic Exercises (58041) as follows:- Sit to stands no UE support- Staggered stance sit to stands no UE support (LLE back more challenging)- Narrow [place] with red theraband- Band pull apart with [...] verbal and tactile cues ? Billing : [id number] (Therapeutic Exercise) Direct 1:1 Time= 25 minutes [...] Pt experiences intermittent diplopia 3.?Co-Signing Status ? PHOTO INTERN Supervision : PHOTO INTERN Direct Supervision: The therapy session was supervised by a licensed PT in accordance to [place] Board of PT statutes and rules 148.706 as an on-site observation of the treatment provided by PHOTO INTERN and the plan of care was reviewed [...] - M54.2??? Plan: * Treatment: * Procedure Codes:?48241 Thera peutic Exercise PHOTO INTERN, Units: 4.00 , Modifiers: GP , CQ, Time (Mins): 153904 * Billing Information: * Visit Code:? * Procedure Codes:? 85032 Therapeutic Exercise PHOTO INTERN. Units: 4.00. Time (Mins):60Modifiers: GP, CQ * Electronically co-signed by RAFIA Kinney on 06/14/2024 at 04:07 PM AIRCRAFT LAYOUT WORKER Sign off status: Completed true * Provider:?RAFIA Kinney Date:? Generated for Printi ng/Faterrellg/eTransmitting on:?06/24/2024 08:05 AM AIRCRAFT LAYOUT WORKER History and Physical Notes * HPI (History [...] 225): 140 Isotonic Exercise Machine Summary Billing [id number] (Therapeutic Exercise) Direct 1:1 Time= 35 mins [...] week Torso Rotation Positioning & Goals Positioning Springer: 3 Footboard: 2 Back Pad: 1 Goals [...]
--- OUTSIDE RECORDS SUMMARY | 2024-06-24 08:06 | XMS_ITS | Encounter Summary ---
Author Organization [facility] Address [address] [place] [address]. [place] [address] Care Team Providers Care Commercial Sewing Instructor Name Role Phone Segun Hopkins MD Primary Care Provider [phone] Reason for Visit * Reason Onset Date Comments MH/CD Inpatient 10/09/2015 Encounter Details Date Type Department Care Team ([facility] Contact Info) Description 10/09/2015 Telephone [facility] Behavioral Health Intake [address] [place] [address] Generic, Behavioral Intake, MH/CD Inpatient Social History Tobacco Use Types Packs/Day Years Used Date Smoking Tobacco: Every Day Cigarettes Alcohol Use Standard Drinks/Week Comments Not Asked 0 (1 standard drink = 0.6 oz pur e alcohol) Sex and Gender Information Value Date Recorded Sex Assigned at Not on file Legal Sex Male 3:06 AM SURVEYOR'S ASSISTANT Gender Identity Not on file Sexual Orientation Not on file documented as of this encounter Miscellaneous Notes * Telephone Encounter - Kaur Durant - 10/09/2015 12:18 PM CST S: shy gave clinical saying she did a virtual eval on pt who is in [facility] er due to intoxication. He was [...] said she will inform er dr. hodges EYOR'S ASSISTANT documented in this encounter Plan of Treatment Not on file documented as of this encounter Visit Diagnoses Not on filedocumented in this encounter Care Teams Commercial Sewing Instructor Relationship Specialty Start Date End Date Segun Hopkins MD [facility] [address] [place] [address] PCP - General Family Practice 10/09/15 documented as of this encounter
--- OUTSIDE RECORDS SUMMARY | 2024-06-24 08:06 | XMS_ITS | Clinical Summary ---
Author Organization [facility] Address [place], [place] [address] Care Team Providers Care Laborer Gold Leaf Name Role Phone Segun Hopkins MD Primary Care Provider Unavail Lucy Unger Unavailable [phone] Allergies Active Allergy Reactions Criticality Noted [...] Description 05/31/2024 8:30 AM CDT Office Visit [facility] [address] [place] [address] Izabella Yao, [facility] (Picking up repaired hearing aid) 05/31/2024 Travel 05/26/2024 Telephone [facility] [address] [place] [address] Sung Lang, [place] Questions (LT hearing aide?) 05/06/2024 2:30 PM CDT Office Visit [facility] [address] [place] [address] Sung Lang, [facility] Hearing [facility] 05/06/2024 Travel from Last 3 Months Social History [...] 1 - PCV) 2022 COVID-19 vaccine series ( season) 2024 11/24/2022, 11/20/2021, 11/23/2020, Additional history exists Influenza for age 65+ 04/10/2024 Advance Directives * Full Code (Latest Code Status on File) Date Activated Date Inactivated Comments 10/05/2010 2:33 PM 10/08/2010 2:50 PM Care Teams Laborer Gold Leaf Relationship Specialty Start Date End Date Segun Hopkins MD PCP - General 03/17/08 Lucy Albert [facility]D [address] [place] [address] Audiology 02/09/17
--- OUTSIDE RECORDS SUMMARY | 2024-06-24 08:06 | XMS_ITS | Clinical Summary ---
Author Organization [facility] Address [address] [place] [address]. 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 Acute [...] on file Legal Sex Male 3:06 AM HACK DRIVER Gender Identity Not on file Sexual [...] 188 cm (6' 2) 10/15/2019 3:55 PM HACK DRIVER Body Mass Index 27.14 10/15/2019 3:55 PM HACK DRIVER Plan of Treatment Not on file Insurance none (Work) [id number] [place] [id number] [facility] [place] Advance Directives For more information, please contact: [phone] * Full Code (Latest Code Status on [...] 10:25 AM 05/07/2016 6:52 PM Care Teams Tile Setter Relationship Specialty Start Date End Date Segun Hopkins MD [address] [place] [address] PCP - General Family Practice 10/09/15
--- OUTSIDE RECORDS SUMMARY | 2024-06-24 08:06 | XMS_ITS | Clinical Summary ---
Author Organization [facility] Address [address] [place] [id number] Care Team Providers Care Brake Specialist Name Role Phone Jagruti Tyler M.D. Primary Care Provider [phone] Source Comments Patient records contain information from all sites at [facility]. For routine questions regarding patient records, call [phone] during business hours, M-F 8:00 AM - 5:00 PM Central Time. Record requests for emergency care only can be directed to [phone] at any time.[facility] Allergies Active Allergy Reactions Criticality Noted Date Comments Gabapentin Other (see comments),Anaphylaxis High 03/23/2014 Throat Swelling with difficulty breathing Throat Swelling with difficulty breathing Levetiracetam Other (see comments) High 01/06/2020 KEPPRA Manic Episodes Manic Episodes Penicillins Other (see comments) Low 04/17/2016 body aches Body aches Medications * This document contains information received from the source organization and may not represent a complete record from that organization. lidocaine (LIDODERM) 5 % Place 1 patch on the skin daily. Apply to painful area 12 hours per day, remove for 12 hours. 30 patch 1 022 Active Additional Information Patient taking differently:1 patch transdermalAs needed, Apply to painful area 12 hours per day, remove for 12 hours. Currently using 4% over the counter patches., Informant: Self, Reported on 04/10/2022 omeprazole (PriLOSEC) [address] capsule Take 1 capsule (40 mg total) by mouth every morning before breakfast. 90 capsule 3 024 Active atorvastatin (LIPITOR) 10 mg tablet Take 1 tablet (10 mg total) by mouth daily. 90 tablet 3 024 Active lamoTRIgine (LaMICtaL) 25 mg tabletIndications :Other Seizures (HCC) Take 2 tablets (50 mg total) by mouth 2 (two) times a day. 360 tablet 3 024 Active calcium carbonate-vitamin D3 (Oysco 500/D) 1,250 mg (500 mg calcium)-5 mcg (200 Unit) per tablet Take 2 tablets by mouth daily. 180 tablet 3 024 Active thiamine (VITAMIN B1) 100 mg tablet Take 1 tablet (100 mg total) by mouth daily. 90 tablet 3 024 Active levothyroxine (SYNTHROID, LEVOTHROID) 75 mcg tablet Take 1 tablet (75 mcg total) by mouth daily. 90 tablet 3 024 Active fluticasone propionate (FLONASE) 50 mcg/actuation nasal sprayIndications: Rhinitis Chronic Administer 2 sprays into each nostril daily. 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 180 tablet 3 024 Active apixaban (Eliquis) 5 mg tablet Take 1 tablet (5 mg total) by mouth 2 (two) times a day. 180 tablet 3 024 Active ipratropium (Atrovent) 21 mcg (0.03 %) nasal sprayIndications: Rhinitis Chronic Administer 2 sprays into each nostril 3 (three) times a day as needed for rhinitis. 30 mL 11 024 Active QUEtiapine (SEROqueL) 100 mg tabletIndications :Other Bipolar Disorder (HCC) Take 1.5 tablets (150 mg total) by mouth at bedtime. 145 tablet 3 024 Active metoprolol tartrate (Lopressor) 25 mg tablet take 1 tablet by mouth twice daily 180 tablet 3 024 Active sodium chloride 1,000 mg disintegrating tabletIndications :Hyponatremia Take 5 tablets (5 g total) by mouth 2 (two) times a day. 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 360 tablet 3 023 2023 Discontinued doxycycline hyclate (VIBRAMYCIN) 100 mg capsule Take 1 capsule (100 mg total) by mouth 2 (two) times a day. 180 capsule 3 023 2023 Discontinued Active Problems Problem Noted Date Diagnosed Date Pancytopenia 01/04/2024 Emphysema 01/04/2024 PreDiabetes 01/04/2024 Malignant Neoplasm Of Lung Lower Lobe Or Bronchu s Right 02/02/2023 Cancer Staging:Pathologic stage from 10/21/2016:Stage Unknown(T3, NX, cM0) - Signed by Ilsa Agee P.A.-C., P.A. on 02/02/2023 Cobb's Esophagus 06/06/2022 Abnormal Thyroid Function Test 03/20/2022 Overview (03/20/2022): Low Free T4 Pilonidal Cyst Without Abscess 03/08/2022 Hidradenitis Suppurativa 03/08/2022 Anemia Posthemorrhagic Acute (Blood Loss Anemia) 03/08/2022 Other Pericardial Effusion Noninflammatory 03/08 Supraventricular Tachycardia, Unspecified 2021 Contusion (Hematoma) Thigh Initial Left 03/06/20 Flutter Atrial 03/06/2022 Acute Respiratory Failure 02/24/2022 Lupus Central Nervous System 02/21/2022 Encephalopathy 02/20/2022 Systemic Lupus Erythematosus Organ Or System Involvement Unspecified 02/19/2022 Lupus Systemic Erythematosus 02/19/2022 Anemia Iron Deficiency 01/31/2022 Overview (01/31/2022): Added automatically from request for surgery [id number] Acute Disseminated Encephali tis And Encephalomyelitis Unspecified 12/12/2021 Liver Alcoholic Disease 08/15/2021 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 Overview (2021): Downbeat and diagonal nystagmus, ataxia onset probably early 2020 Decline Cognitive 2021 Nystagmus 2021 Delirium 05/19/2021 Inappropriate Antidiuretic Hormone Syndrome 05/10 Tremor Intention 02/22/2021 Overview (02/22/2021): Probably medication - related Unsteadiness Gait Disorder Non Orthopedic 2020 Overview (02/22/2021): Possible medication related Hyponatremia 01/10/2020 Abnormal Electrocardiogram 12/30/2019 Other Bipolar Disorder 09/13/2019 Localization Related Focal P artial Idiopathic Epilepsy And Epileptic Syndromes With Seizures Of Localized Onset Intractable Without Status Epilepticus 11/25/2018 Thrombocytopenia 08/07/2017 Hyperlipidemia 07/27/2017 Loss Hearing Sensorineural Bilateral 02/09/2017 Personal History Of Other Ma lignant Neoplasm Of Bronchus And Lung 02/05/2017 Overview (02/24/2017): Cancer Lung Adenocarcinoma NOS 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 06/13/2016 Alcohol Moderate Or Severe U se Disorder (Dependence) Uncomplicated 05/07/2016 Nicotine Dependence Cigarettes 05/07/2016 Hypertensive Heart Disease Without Heart Failure 04/29/2016 Overview (12/30/2016): Hypertension (HTN) NOS Polyp Colon Personal History, Unspecified Type 0 08/29/2015 Cannabis Moderate Or Severe Use Disorder (Dependence) Uncomplicated 10/06/2010 Resolved Problems Problem Noted Date Diagnosed Date Resolved Date Hypotension 03/06/2022 03/08/2022 Confusion 08/12/2021 01/04/2024 Change Mental Status 05/18/2021 024 Seizure Disorder 12/28/2019 01/23/2020 Focal Epilepsy Symptomatic I ntractable Without Status Epilepticus 12/23/2019 01/23/2020 Stone Kidney And Ureteral 03/09/2019 Overview (03/09/2019): Added automatically from request for surgery [id number] Nephrolithiasis 02/28/2019 09/13/2019 Overview (02/28/2019): Added automatically from request for surgery [id number] Alcohol Abuse With Intoxication Unspecified 11/25/2018 11/25/2018 Alcohol Intoxication With Alcoholism 11/25/2018 12/05/2018 Depressive Disorder 11/25/2018 09/13/19 20 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 11/25/2018 12/05/2018 Hyponatremia 11/15/2018 11/28/2018 Angina Stable 07/27/2017 01/05/2021 Malignant Neoplasm Of Lung Right 10/01/2016 11/23/2018 Malignant Neoplasm Of Lower Lobe, Bronchus Or Lung Laterality Unknown 09/30/2016 11/23/2018 Pre Existing Essential Hyper tension Complicating First Trimester 09/03/2016 1 09/21/2017 Elevated Lipids 09/03/2016 06/16/2018 Coronary Artery Disease (Unspecified) 06/22/2016 07/21/2018 Overview (12/30/2016): Coronary Artery Disease (CAD) Kaw Vessel Angina Crescendo 06/12/2016 07/27/2017 Overview (12/30/2016): Angina Crescendo Encounters Date Type Department Care Team Description 06/22/2024 Refill Department of Family Medicine, [facility], in [address] [phone] Jagruti Tyler M.D. Med Refill 2024 Refill Department of Family Medicine, [facility], in [address] [phone] Jagruti Tyler M.D. Med Refill 06/01/2024 9:47 AM CDT - 06/01/2024 11:59 PM CDT Hospital Encounter Department of Laboratory Medicine in [address] [phone] Fatou Rivas M.D. Hyponatremia Discharge Disposition: Home or Self Care 05/22/2024 Refill Department of Family Medicine, [facility], in [address] [phone] Jagruti Tyler M.D. Med Refill 05/18/2024 9:50 AM CDT - 05/18/2024 11:59 PM CDT Hospital Encounter Department of Laboratory Medicine in [address] [phone] Fatou Rivas M.D. Hyponatremia Discharge Disposition: Home or Self Care 05/05/2024 12:20 PM CDT - 05/05/2024 11:59 PM CDT Hospital Encounter Department of Laboratory Medicine in [address] [phone] Fatou Rivas M.D. Hyponatremia Discharge Disposition: Home or Self Care 04/26/2024 1:15 PM CDT Office Visit Department of Ophthalmology in [address] [phone] Cody Gonzalez M.D. Nystagmus (Primary Dx); Diplopia; Age Related Nuclear Cataract Bilateral; Ataxia; Laser Assisted In Situ Keratomileusis Status Post 04/25/2024 1:30 PM CDT Clinical Communication Virtual Review in [address] [phone] Pre-visit Intake 04/20/2024 9:50 AM CDT - 04/20/2024 11:59 PM CDT Hospital Encounter Department of Laboratory Medicine in [address] [phone] Fatou Rivas M.D. Hyponatremia Discharge Disposition: Home or Self Care 04/06/2024 9:49 AM CDT - 04/06/2024 11:59 PM CDT Hospital Encounter Department of Laboratory Medicine in [address] [phone] Fatou Rivas M.D. Hyponatremia Discharge Disposition: Home or Self Care from Last 3 Months Immunizations Name Administration Dates Next Due HepA Adult 01/06/2024,11/24/2022 HepB Adult (HEPLISAV-B) 04/27/2023,11/24/2022 Influenza Split 05/15/2016 Influenza high dose QV(65 ye ars or older) (PF) 11/24/2022 Influenza, Unspecified 06/04/2016 PCV13 01/04/2021,05/09/2016 PPSV23 01/26/2019,05/09/2016 Pneumococcal, Unspecified 09/03/2016(Def erred: Other),09/03/2016(Deferred: Other) RZV (SHINGRIX) 04/24/2021,01/04/2021 SARS-COV-2 (COVID-19) - MODERNA(Discontinued) 11/20/2021 SARS-COV-2 (COVID-19) - PFIZ ER BIVALENT TS(Discontinued)(12 YEARS OR OLDER) 11/24/2022 Td (Adult), adsorbed 09/03/2016(Deferred : Other),09/03/2016(Deferred: Other) Td Preservative Free (TENIVA C, DECAVAC) 05/02/2020 Tdap 07/31/2010 influenza trivalent high dos e (HD)(PF) 05/15/2016 influenza vaccine (FLUBLOK) (18 years or older) (PF) 10/18/2019 influenza vaccine QV(FLUBLOK ) (18 years or older) (PF) 10/18/2019 influenza vaccine quad (FLUZONE/FLUARIX) (6 months and older)(PF) 05/19/2021 Family History Medical History Relation Name Comments Alcohol abuse Father Parul 45 Aneurysm Father Parul brain Bipolar disorder Father Parul Not treated Cirrhosis Father Parul Colitis Father Parul Colon cancer Father Parul 70 Hypertension Father Parul 65 Liver disease Father Parul 75 Prostate cancer Father Parul 70 Pulmonary hypertension Father Parul Alcohol abuse Mother Renetta 45 Alzheimer's disease Mother Renetta Bipolar disorder Mother Renetta Not treated Ulcerative colitis Son 1 Ulcerative colitis Son 2 Costa 7 Alcohol abuse Son 3 Salvatore Marcelino' Hyperlipidemia Son 3 Salvatore Marcelino' Ulcerative colitis Son 3 Chase (Mike) Amblyopia Neg Hx Blindness Neg Hx Cataracts Neg Hx Glaucoma Neg Hx Macular degeneration Neg Hx Retinal degeneration Neg Hx Retinal detachment Neg Hx Strabismus Neg Hx Relation Name Status Comments Father Parul Mother Renetta Son 1 Son 2 Costa Son 3 Chase (Mike) Social History Tobacco Use Types Packs/Day Years Used Date Smoking Tobacco: Every Day Cigarettes 1 49.2 Started: 04/10/1975 Passive Smoke Exposure: Past Smokeless Tobacco: Former Quit: 12/01/2018 Tobacco Cessation:Ready to Q uit: Not Asked; Counseling Given: Not Answered Comments:Currently vapes nicotine on hourly basis Alcohol Use Standard Drinks/Week Comments Not Currently 21 (1 standard drink = 0.6 oz pu re alcohol) [facility] Utilities Answer Date Recorded In the past 12 months has e [employer], oil, or water [employer] threatened to shut off services in your home? No 12/21/2023 Humiliation, Afraid, Rape, and Kick questionnair e Answer Date Recorded Within the last year, have y ou been afraid of your partner or ex-partner? No 11/19/2022 Within the last year, have y ou been humiliated or emotionally abused in other ways by your partner or ex-partner? No Within the last year, have y ou been kicked, hit, slapped, or otherwise physically hurt by your partner or ex-partner? No 11/19/2022 Within the last year, have y ou been raped or forced to have any kind of sexual activity by your partner or ex-partner? No 11/19/2022 Social Connection and Isolat ion Panel [NHANES] Answer Date Recorded In a typical week, how many times do you talk on the phone with family, friends, or neighbors? More than three times a week 11/19/2022 How often do you get togethe r with friends or relatives? Twice a week 11/19/2022 How often do you attend formerly [facility] or scientologist services? More than 4 times per year 11/19/2022 Do you belong to any clubs o r organizations such as mandaeism groups, unions, fraternal or athletic groups, or school groups? No 11/19/2022 How often do you attend meet ings of the clubs or organizations you belong to? Patient declined 11/19/2022 Are you , , di vorced, , never , or living with a partner? 11/19/2022 AUDIT-C Answer Date Recorded Q1: How often do you have a drink containing alc ohol? 2-4 times a month 11/19/2022 Q2: How many drinks containi ng alcohol do you have on a typical day when you are drinking? 1 or 2 11/19/2022 Q3: How often do you have si x or more drinks on one occasion? Never 11/19/2022 Overall Financial Resource Strain (CARDIA) Answe r Date Recorded How hard is it for you to pa y for the very basics like food, housing, medical care, and heating? Not hard at all 11/19/2022 PHQ-2 Answer Date Recorded PHQ-2 Score 2 12/21/2023 [facility] - Occupational Stress Questionnaire Answer Date Recorded Do you feel stress - tense, restless, nervous, or anxious, or unable to sleep at night because your mind is troubled all the time - these days? Only a little 11/19/2022 Exercise Vital Sign Answer Date Recorde d On average, how many days pe r week do you engage in moderate to strenuous exercise (like a brisk walk)? 0 days 12/21/2023 On average, how many minutes do you engage in exercise at this level? 0 min 12/21/2023 Hunger Vital Sign Answer Date Recorded Within the past 12 months, y ou worried that your food would run out before you got the money to buy more. Never true 12/21/19 24 Within the past 12 months, t he food you bought just didn't last and you didn't have money to get more. Never true 12/21/2023 PRAPARE - Transportation Answer Date Re corded In the past 12 months, has l ack of transportation kept you from medical appointments or from getting medications? No 12/08 In the past 12 months, has l ack of transportation kept you from meetings, work, or from getting things needed for daily living? No 12/21/2023 Depression Answer Date Recor ded PHQ-9 Total Score (max 27) 4 02/17 Nutrition Answer Date Recorded On average, how many serving s of fruits and vegetables do you eat per day (serving size is equal to 1 cup or approximately the size of a tennis ball)? 0-2 12/21/2023 Dental Answer Date Recorded Dental: Regular Dentist Yes 02/23/20 Employment Answer Date Recorded Employment status Retired 12/21/2023 Housing Stability Answer Date Recorded What is your living situation today? [facility] 12/21/2023 Education Answer Date Recorded What is the highest level of school you have completed or the highest degree you have received? Some college, no degree 02/11/2019 Sex and Gender Information Value Date Recorded Sex Assigned at Male 09/02/2017 9:18 AM MATH PROFESSOR Legal Sex Male 7:21 PM MATH PROFESSOR Gender Identity Male 09/02/2017 9:18 AM MATH PROFESSOR Sexual Orientation Straight 09/02/2017 9: 18 AM MATH PROFESSOR Last Filed Vital Signs Vital Sign Reading Time Taken Comments Blood Pressure 100/63 03/09/2024 10:22 AM CDT Pulse 67 03/09/2024 10:22 AM CDT Temperature 36.7 ??C (98.1 ??F) 02/03/2024 11:41 AM C DT Respiratory Rate 16 06/03/2022 12:00 PM CDT Oxygen Saturation 96% 02/03/2024 11:41 AM CDT Inhaled Oxygen Concentration - - Weight 82.1 kg (181 lb) 03/09/2024 9:51 AM CDT Height 182.9 cm (6' 0.01) 03/09/2024 9:51 AM CD T Body Mass Index 24.54 03/09/2024 9:51 AM CDT Plan of Treatment Upcoming Encounters Date Type Department Care Team (Late st Contact Info) Description 06/29/2024 8:50 AM MATH PROFESSOR Appointment Department of Laboratory Medicine in [address] [phone] Fatou Rivas M.D. [address] [place] [phone] 07/04/2024 7:15 AM MATH PROFESSOR Office Visit Department of Family Medicine, [facility], in [address] [phone] Jagruti Tyler M.D. [address] [place] [phone] Discharge Disposition: Home or Self Care 07/20/2024 9:50 AM MATH PROFESSOR Appointment Department of Laboratory Medicine in [address] [phone] Fatou Rivas M.D. [address] [place] [phone] Health Maintenance Due Date Last Done Comments CT Colonography 1957 Cologuard 1955 Visit: Medicare Annual Wellness 1955 Tobacco Cessation counseling 11/25/2023 11/24/2022 Pneumococcal vaccine (65+ years) (3 of 3 - PPSV23 or PCV20) 01/27/2024 01/04/2021, 01/26/2019, 05/09/2016, Additional history exists COVID-19 Vaccine ( season) 2024 11/24/2022, 11/20/2021, 11/23/2020, Additional history exists Influenza Vaccine (#1) 2024 , 05/19/2021, 10/18/2019, Additional history exists Lipid (Cholesterol) Screening 12/17/2024 12/18/2023, 11/24/2022, 11/19/2021, Additional history exists Thyroid Stimulating Hormone (TSH) test for thyroid function 12/17/2024 12/18/2023, 11/24/2022, 07/01/2022, Additional history exists Visit: Chronic Disease, age 18+ 12/21/2024 12/22/2023 Office Visit for Blood Pressure Check / Re-check 03/09/2025 03/09/2024 Fasting Glucose for Diabetes Screening 06/01/2025 06/01/2024, 05/18/2024, 05/05/2024, Additional history exists Gastroscopy (upper endoscopy) 06/03/2025 06/03/2022 Colonoscopy 06/03/2027 06/03/2022, 08/10, 08/21/2021, Additional history exists Colorectal Cancer Surveillance 06/03/2027 Bone Density Scan Monitoring 03/06/2028 03/06/2023 DTaP,Tdap,and Td Vaccines (3 - Td or Tdap) 05/02/2030 05/02/2020, 07/31/2010 Zoster Vaccines Completed 04/24/2021, 01/04/2021 Hepatitis C Screening Completed 08/08/2021, 020 Abdominal Aortic Aneurysm (AAA) Screen Completed 01/13/2023, 03/05/2022, 02/24/2022, Additional history exists Hepatitis B Vaccines Completed 04/27/2023, 11/25/19 Depression Screening (Annual PHQ-2) Completed 12/22/2023, 12/21/2023 Fall Risk Screen (Annual) Completed 12/22/2023 Hepatitis A Vaccines Completed 01/06/2024, 11/25/19 HPV Vaccines Aged Out No longer eligi ble based on patient's age to complete this topic IPV Vaccines Aged Out No longer eligi ble based on patient's age to complete this topic Medical Devices Implanted Type Area Yeast Maker Device Identifier Shelf Expiration Date Model / Serial / Lot Premier 3.5 X 16 - [place] [id number] Implanted:Qty: 1 on 06/13/2016 Cardiac Stent [employer] (PVT) Description:Device Manufactu rer - [employer] (PVT). Device Status Text - [id number]. Stent Other Stent Other Heart Stnt Uret Inl 7fx26 - [id number] Implanted:Qty: 1 on 04/15/2019 by Jamin Brenner M.D. at [facility] [employer] Ureteral Stent Left: Ureter [employer] [id number] 01/19/2023 [id number] / / [id number] Explanted Type Area Yeast Maker Device Identifier Shelf Expiration Date Model / Serial / Lot Stnt Uret Inl 7fx26 - [id number] Implanted:Qty : 1 on 03/01/2019 by Ra Perez M.D., Ph.D. at [facility] Explanted:Qty : 1 on 04/15/2019 by Pattie Jaquez M.D. at [facility] [employer] Ureteral Stent [employer] [id number] 01/19/2023 [id number] / / [id number] Procedures Procedure Name Priority Date/Time Associated Diagnosis Comments OUTSIDE NM PET Routine 06/16/2024 3:10 PM MATH PROFESSOR BASIC METABOLIC PANEL, S/P Routine 06/01/2024 10:00 AM CDT Hyponatremia BASIC METABOLIC PANEL, S/P Routine 05/18/2024 10:01 AM CDT Hyponatremia BASIC METABOLIC PANEL, S/P Routine 05/05/2024 12:36 PM CDT Hyponatremia BASIC METABOLIC PANEL, S/P Routine 04/20/2024 10:11 AM CDT Hyponatremia BASIC METABOLIC PANEL, S/P Routine 04/06/2024 9:54 AM CDT Hyponatremia LIPID PANEL, S Routine 12/18/2023 8:02 AM CDT Hyperlipidemia THYROID-STIMULATIN G HORMONE-SENSITIVE (S-TSH) Routine 12/18/2023 8:02 AM CDT Abnormal Thyroid Function Test BMD BONE DENSITY SPINE HIPS RAD - Routine (most inpatients and all outpatients) 03/06/2023 11:38 AM CDT High Risk Medication US ABDOMEN COMPLETE RAD - Routine (most inpatients and all outpatients) 01/13/2023 10:53 AM CDT Elevated Alkaline Phosphatase COLONOSCOPY 06/03/2022 11:18 AM CDT UPPER GI ENDOSCOPY 06/03/2022 10 :45 AM CDT HCV AB SCRN W/REFLEX TO HCV PCR, S Routine 08/08/2021 9:36 AM MATH PROFESSOR Cerebellar Ataxia In Diseases Classified Elsewhere (HCC) Nystagmus Personal History Of Other Malignant Neoplasm Of Bronchus And Lung from Last 3 Months or Most Recently Relevant to Health Maintenance Results * PET skull to mid thigh-Outside NM Pet (06/16/2024 3:10 PM MATH PROFESSOR) Narrative IIDE - 06/16/2024 7:58 PM MATH PROFESSOR This order has been created and auto-finalized to support the import of outside images. If available, original interpretation can be found on the Media Tab in Chart Review, in Document Viewer, as an image in QREADS or as an Addendum. If a re-interpretation or overread is required please follow defined workflow.?? us Provider Not In System IMG NM PROCEDURES Final R esult [facility] NA * (ABNORMAL) Basic Metabolic Panel (06/01/2024 10:00 AM CDT) Only the most recent of5 resultswithin the time period is included. Potassium, P 4.7 3.6 - 5.2 mmol/L 06/01/2024 12:00 PM CDT CNFL Sodium, P 137 135 - 145 mmol/L 06/01/2024 12:00 PM CDT CNFL Chloride, P 100 98 - 107 mmol/L 06/01/2024 12:00 PM CDT CNFL Bicarbonate, P 29 22 - 29 mmol/L 06/01/2024 12:00 PM CDT CNFL Anion Gap, P 8 7 - 15 06/01/2024 12:00 PM CDT CNFL BUN (Blood Urea Nitrogen), P 15 8 - 24 mg/dL 06/01/2024 12:00 PM CDT CNFL Creatinine 0.65(L) 0.74 - 1.35 mg/dL 06/01/2024 12:00 PM CDT CNFL Estimated GFR (eGFR) >90 >=60 mL/min/BSA 06/01/2024 12:00 PM CDT CNFL Comment: Estimated GFR calculated using the 2020 CKD_EPI creatinine equation. Calcium, Total, P 9.1 8.8 - 10.2 mg/dL 06/01/2024 12:00 PM CDT CNFL Glucose, P 89 70 - 140 mg/dL 06/01/2024 12:00 PM CDT CNFL Blood (Blood, Venous) 06/01/2024 10:00 AM CDT 06/01/2024 10:01 AM CDT Fatou Rivas M.D. LAB BLOOD ADD-ON Final Result [facility] [address] [place] [address], [facility] [place] [address] * Lipid Panel (12/18/2023 8:02 AM CDT) Triglycerides 60 mg/dL 12/18/2023 8:22 AM CDT CNFL Comment: ----REFERENCE VALUE---- Normal: <150 mg/dL Borderline High: 150-199 mg/dL High: 200-499 mg/dL Very High: > or =500 mg/dL Cholesterol, Total 102 mg/dL 2023 8:22 AM CDT CNFL Comment: ----REFERENCE VALUE---- Desirable: < 200 mg/dL Borderline High: 200 - 239 mg/dL High: > or = 240 mg/dL Cholesterol, LDL, Calculated 46 mg/dL 12/18/2023 8:22 AM CDT CNFL Comment: ----REFERENCE VALUE---- Desirable: <100 mg/dL Above Desirable: 100-129 mg/dL Borderline High: 130-159 mg/dL High: 160-189 mg/dL Very High: >=190 mg/dL ----ADDITIONAL INFORMATION---- LDL cholesterol calculated using the Matthews/NIH equation. Cholesterol, HDL 42 >=40 mg/dL 12/18/19 8:22 AM CDT CNFL Cholesterol, Non-HDL, Calculated 60 mg/dL 12/18/2023 8:22 AM CDT CNFL Comment: ----REFERENCE VALUE---- Desirable: <130 mg/dL Above Desirable: 130-159 mg/dL Borderline High: 160-189 mg/dL High: 190-219 mg/dL Very High: > or =220 mg/dL Fasting (8 HR or more) Yes 12/18/2023 8:04 AM CDT CNFL Blood (Blood, Venous) 12/18/2023 8:02 AM CDT 12/18/2023 8:04 AM CDT us Jagruti Tyler M.D. LAB BLOOD ADD-ON Final Resu lt Performing Organization Address City/[facility]/ZIP Co de Phone Number [facility] [address] [place] [address] [place] [address] * (ABNORMAL) S-TSH (Thyroid-Stimulating Hormone - Sensitive) (12/18/2023 8:02 AM CDT) TSH, Sensitive 4.5(H) 0.3 - 4.2 mIU/L 12/18/2023 8:34 AM CDT CNFL Blood (Blood, Venous) 12/18/2023 8:02 AM CDT 12/18/2023 8:04 AM CDT us Jagruti Tyler M.D. LAB BLOOD ADD-ON Final Resu lt [facility] [address] [place] [phone], [facility] CNFL [facility] in [address] [id number] * BMD Bone Density Spine Hips (03/06/2023 11:38 AM CDT) Anatomical Region Laterality Modality Hip, Lumbar Spine, Nuclear M edicine RST LOS, Musculoskeletal ARZ LOS, Muskuloskeletal FLA LOS N/A Radio graphic Imaging 03/06/2023 11:4 2 AM CDT Impressions 03/06/2023 11:45 AM CDT Low bone density (Osteopenia) AP Spine (region: L1-L2) Narrative 03/06/2023 11:45 AM CDT EXAM: ??BMD BONE DENSITY SPINE HIPS Bone Mineral Density (BMD) analysis performed on [employer] with serial number [id number]. ? FINDINGS: Left Hip: Femur Neck: BMD = 0.980 g/cm2 T-score = -0.4 ?Z-score = 0.4 Total Hip: BMD = 0.953 g/cm2 T-score = -0.4 ?Z-score = -0.5 Right Hip: Femur Neck: BMD = 0.979 g/cm2 T-score = -0.4 ?? Z-score = 0.4 Total Hip: BMD = 0.938 g/cm2 T-score = -0.6 ?Z-score = -0.6 Lumbar Spine: L1: BMD = 0.915 g/cm2 L2: BMD = 0.896 g/cm2 Total Lumbar Spine (L1-L2): BMD = 0.904 g/cm2 T-score = -2.2 ?Z-score = -2.0 ? Trabecular Bone Score: ??L1-L2: TBS = 1.220 < 1.23: low 1.23 -1.31: borderline ?? > 1.31: normal ? A low TBS has been associated with increased risk of fractures in certain populations. TBS should not be used alone to determine treatment recommendations. It can be used in conjunction with BMD and FRAX to inform management. Please note: A more comprehensive DXA report, including images and graphs, is available in [employer]. In the absence of other causes of low BMD or demonstrated skeletal fragility, osteoporosis may be diagnosed in post-menopausal women and men at or above age 50 when the T-score is at or below -2.5 as defined by the WHO. Low bone density is present at T-scores between -1 and - 2.5. The diagnosis in pre-menopausal women and men < age 50 can be based on low bone density or evidence of skeletal fragility in the appropriate clinical setting. Based on the bone density results, and on the patient's answers to the Fracture Risk Assessment questionnaire (please refer to appropriate image stored in the BMD study in [employer]), the calculated ten year probability of fracture is: FRAX Risk Factors: Tobacco User (Current Smoker) FRAX (10 yr probability) adjusted for TBS Major Osteoporotic Fracture: ??5.7 % Hip Fracture: ?1.0 % ? Degenerative changes are present which may spuriously elevate the spine BMD measurement. Procedure Note Stefan De Leon M.D. - 03/06/2023 EXAM: BMD BONE DENSITY SPINE HIPS Bone Mineral Density (BMD) analysis performed on [employer]with serial number [id number]. FINDINGS: Left Hip: Femur Neck: BMD = 0.980 g/cm2 T-score = -0.4 Z-score = 0.4 Total Hip: BMD = 0.953 g/cm2 T-score = -0.4 Z-score = -0.5 Right Hip: Femur Neck: BMD = 0.979 g/cm2 T-score = -0.4 Z-score = 0.4 Total Hip: BMD = 0.938 g/cm2 T-score = -0.6 Z-score = -0.6 Lumbar Spine: L1: BMD = 0.915 g/cm2 L2: BMD = 0.896 g/cm2 Total Lumbar Spine (L1-L2): BMD = 0.904 g/cm2 T-score = -2.2 Z-score = -2.0 Trabecular Bone Score: L1-L2: TBS = 1.220 < 1.23: low 1.23 -1.31: borderline > 1.31: normal A low TBS has been associated with increased risk of fractures in certainpopulations. TBS should not be used alone to determine treatment recommendations. It can be usedin conjunction with BMD and FRAX to inform management. Please note: A more comprehensive DXA report, including images and graphs,is available in [employer]. In the absence of other causes of low BMD or demonstrated skeletalfragility, osteoporosis may be diagnosed in post-menopausal women and men at or above age 50 when theT-score is at or below -2.5 as defined by the WHO. Low bone density is present at T-scores between -1and - 2.5. The diagnosis in pre-menopausal women and men < age 50 can be based on low bone density orevidence of skeletal fragility in the appropriate clinical setting. Based on the bone density results, and on the patient's answers to theFracture Risk Assessment questionnaire (please refer to appropriate image stored in the BMD studyin [employer]READS), the calculated ten year probability of fracture is: FRAX Risk Factors: Tobacco User (Current Smoker) FRAX (10 yr probability) adjusted for TBS Major Osteoporotic Fracture: 5.7 % Hip Fracture: 1.0 % Degenerative changes are present which may spuriously elevate the spineBMD measurement. IMPRESSION: Low bone density (Osteopenia) AP Spine (region: L1-L2) us Jagruti POSADAS DXA PROCEDURES Final Re sult * US Abdomen Complete (01/13/2023 10:53 AM CDT) Anatomical Region Laterality Modality Abdomen, Ultrasound RST LOS, Ultrasound ARZ LOS, Ultrasound FLA LOS N/A Ultrasound 01/13/2023 11:0 1 AM CDT Impressions 01/13/2023 11:07 AM CDT 1. Normal sonographic appearance of the liver. No focal hepatic observation. Ultrasound LI- RADS 1B. Narrative 01/13/2023 11:07 AM CDT EXAM: US ABDOMEN COMPLETE HISTORY: 67-year-old male with history of heavy alcohol use with elevated alkaline phosphatase. COMPARISON: CT abdomen pelvis dated 03/05/2022 and abdominal sonogram dated 11/08/2021. FINDINGS: Technically difficult and slightly suboptimal examination due to body habitus and specifically overlying bowel gas and rib shadows partially obscures visualization of abdominal structures. Liver: Normal echogenicity and echotexture. No focal hepatic lesions. No hepatic surface nodularity. Gallbladder: Normal. Intrahepatic ducts: Not dilated. Common duct: Not dilated. Pancreas: Normal where seen. Right kidney: Length: 12.5 cm. Normal echogenicity. No hydronephrosis. ??Nonobstructive stone inferior pole right kidney 0.8 cm. Left kidney: Length: 11.2 cm. Normal echogenicity. No hydronephrosis. Spleen: Normal. ??Spleen length: 11.1 cm Aorta: Normal caliber. IVC: Normal where seen. Ascites: ??None. Ultrasound LI-RADS score is as follows: Ultrasound Category: US-1: ??Negative (No US evidence of HCC). ??Recommend continued routine surveillance. Visualization Score: B: ??Moderate limitations (limitations may obscure small masses, especially < 1 cm). Ultrasound LI-RADS is a standardized system for imaging technique, interpretation, reporting, and data collection for screening or surveillance ultrasound exams in patients at risk for developing HCC. Ultrasound LI-RADS is supported and endorsed by the [employer]. More information can be found on the following link [email or web address].org/Clinical-Resources/[email or web address]-[email or web address]-Systems/[email or web address]/LI-[email or web address] Procedure Note Marissa Pop M.D. - 01/13/2023 EXAM: US ABDOMEN COMPLETE HISTORY: 67-year-old male with history of heavy alcohol use with elevatedalkaline phosphatase. COMPARISON: CT abdomen pelvis dated 03/05/2022 and abdominal sonogramdated 11/08/2021. FINDINGS: Technically difficult and slightly suboptimal examination due tobody habitus and specifically overlying bowel gas and rib shadows partially obscuresvisualization of abdominal structures. Liver: Normal echogenicity and echotexture. No focal hepatic lesions. Nohepatic surface nodularity. Gallbladder: Normal. Intrahepatic ducts: Not dilated. Common duct: Not dilated. Pancreas: Normal where seen. Right kidney: Length: 12.5 cm. Normal echogenicity. No hydronephrosis. Nonobstructivestone inferior pole right kidney 0.8 cm. Left kidney: Length: 11.2 cm. Normal echogenicity. No hydronephrosis. Spleen: Normal. Spleen length: 11.1 cm Aorta: Normal caliber. IVC: Normal where seen. Ascites: None. Ultrasound LI-RADS score is as follows: Ultrasound Category: US-1: Negative (No US evidence of HCC). Recommendcontinued routine surveillance. Visualization Score: B: Moderate limitations (limitations may obscuresmall masses, especially < 1 cm). Ultrasound LI-RADS is a standardized system for imaging technique,interpretation, reporting, and data collection for screening or surveillance ultrasound exams in patientsat risk for developing HCC. Ultrasound LI-RADS is supported and endorsed by the [employer]. More information can be found on the following link [email or web address].acr.org/Clinical-Resources/Jdvanykur-ybe-[email or web address]-Systems/LI-RADS/LI-[email or web address] S-Ult rasound-[email or web address] IMPRESSION: 1. Normal sonographic appearance of the liver. No focal hepaticobservation. Ultrasound LI- RADS 1B. us Jagruti Tyler M.D. IMG US PROCEDURES Final Res ult * COLONOSCOPY (06/03/2022 11:18 AM CDT) Narrative Procedure Note Chris Motley M.D. - 06/03/2022 11:18 AM CDT [facility] Patient Name: Salvatore Mahmood Procedure Date: 06/03/2022 11:18 AM Date of : 1955 Age: 66 Gender: Male Procedure: Colonoscopy Providers: Jagruti Perez (Ordering Provider) Referring Provider: Jagruti Tyler Pre-op Diagnoses: Iron deficiency anemia Post-op Diagnoses: - Three 2 to 6 mm polyps in the transverse colon and at the hepatic flexure, removed with a cold snare. Resected and retrieved. - Mild diverticulosis in the sigmoid colon and in the ascendingcolon. Recommendation: - Repeat colonoscopy in 5 years for surveillance. Findings: Three sessile polyps were found in the transverse colon and hepatic flexure. The polyps were 2 to 6 mm in size. These polyps were removed with a cold snare. Resection and retrieval were complete. A few small-mouthed diverticula were found in the sigmoid colon and ascending colon. Medicines: Monitored Anesthesia Care Estimated Blood Loss: Estimated blood loss was minimal. Complications: No immediate complications. Estimated blood loss: Minimal. Procedure Details: The patient was seen, evaluated, and history reviewed. Airway and heart and lung exams were performed and were satisfactory for plannedsedation care. The risks, benefits and alternatives for the procedure and sedation were discussed andinformed consent was obtained. A procedural pause was conducted in the presence of assisting personnelto verify the correct patient identity and procedureto be performed. Throughout the procedure, the patient's blood pressure, pulse, and oxygen saturations were monitored continuously. The Colonoscope was introduced under directvision through the anus and advanced to the terminalileum. The colonoscopy was performed without difficulty. The patient tolerated the procedure well. The quality of the bowel preparation was evaluatedusing the BBPS ([place] Bowel Preparation Scale) with scores of: Right Colon = 2 (minor amount ofresidual staining, small fragments of stool and/or opaque liquid, but mucosa seen well), Transverse Colon =3 (entire mucosa seen well with no residualstaining, small fragments of stool or opaque liquid) andLeft Colon = 3 (entire mucosa seen well with noresidual staining, small fragments of stool or opaque liquid). The total BBPS score equals 8. Sedation: Anesthesia was administered by an anesthesia professional. Thefollowing parameters were monitored: oxygen saturation, heart rate, blood pressure, respiratory rate, EKG, adequacy of pulmonary ventilation,and response to care. Chris Motley, 06/03/2022 11:22:12 AM This report has been signed electronically. Number of Addenda: 0 Note Initiated On: 06/03/2022 11:18 AM us Jagruti Tyler M.D. GI PROCEDURE ORDERABLES Fin al Result * UPPER GI ENDOSCOPY (06/03/2022 10:45 AM CDT) Narrative Procedure Note Chris Motley M.D. - 06/03/2022 10:45 AM CDT [facility] Patient Name: Salvatore Mahmood Procedure Date: 06/03/2022 10:45 AM Date of : 1955 Age: 66 Gender: Male Procedure: Upper GI endoscopy Providers: Jagruti Perez (Ordering Provider) Referring Provider: Jagruti Tyler Pre-op Diagnoses: Iron deficiency anemia Post-op Diagnoses: - Esophageal mucosal changes suspicious for short-segment Cobb's esophagus. Biopsied. - Chronic gastritis with hemorrhage. Biopsied. - Normal examined duodenum. Recommendation: - Await pathology results. - Will proceed with colonoscopy today as scheduled. Findings: The esophagus and gastroesophageal junction were examined with white light and narrow band imaging (NBI) from a forward view andretroflexed position. There were esophageal mucosal changes suspicious for short-segment Cobb's esophagus. These changes involved the mucosa extending to the Z-line. Squamous islands were present from 40 to 43cm. Mucosa was biopsied with a cold forceps for histology. One specimen bottle was sent to pathology. Patchy moderate inflammation with hemorrhage characterized byadherent blood, erosions, erythema and granularity was found in the gastricbody and in the gastric antrum. Biopsies were taken with a cold forcepsfor histology. The exam of the stomach was otherwise normal although antral motility did seem very weak. The examined duodenum was normal. Medicines: Monitored Anesthesia Care Estimated Blood Loss: Estimated blood loss was minimal. Complications: No immediate complications. Estimated blood loss: Minimal. Procedure Details: The patient was seen, evaluated, and history reviewed. Airway and heart and lung exams were performed and were satisfactory for plannedsedation care. The risks, benefits and alternatives for the procedure and sedation were discussed andinformed consent was obtained. A procedural pause was conducted in the presence of assisting personnelto verify the correct patient identity and procedureto be performed. Throughout the procedure, the patient's blood pressure, pulse, and oxygen saturations were monitored continuously. The Endoscope was introduced under direct vision through the mouth, and advanced to the secondpart of duodenum. The upper GI endoscopy wasaccomplished without difficulty. The patient tolerated the procedure well. Sedation: Anesthesia was administered by an anesthesia professional. Thefollowing parameters were monitored: oxygen saturation, heart rate, blood pressure, respiratory rate, EKG, adequacy of pulmonary ventilation,and response to care. Chris Motley, 06/03/2022 11:17:36 AM This report has been signed electronically. Number of Addenda: 0 Note Initiated On: 06/03/2022 10:45 AM us Jagruti Tyler M.D. GI PROCEDURE ORDERABLES Fin al Result * HCV Ab Scrn w/Reflex to HCV PCR, Serum (08/08/2021 9:36 AM MATH PROFESSOR) HCV Ab Screen, S Negative Negative 08/08/2021 1:53 PM MATH PROFESSOR [facility] Comment:[id number] rat io is <1.00. Blood (Blood, Venous) 08/08/2021 9:36 AM MATH PROFESSOR 08/08/2021 12:25 PM MATH PROFESSOR us Kathe Tobias M.D. LAB MICROBIOLOGY - BLOOD ORDERABLES Final Result [facility] [place] [address] [place] [phone] [facility] Dept. of Laboratory Medicine and Pathology [address] [place] [id number] from Last 3 Months or Most Recently Relevant to Health Maintenance Insurance [facility] [place] [phone] Advance Directives For more information, please contact: [phone] * Full Code (Latest Code Status on File) Date Activated Date Inactivated Comments 03/06/2022 2:55 AM 03/08/2022 8:24 PM Question Answer Comments Full Code: Discussed * Full Code Date Activated Date Inactivated Comments 02/24/2022 10:14 AM 03/03/2022 5:20 PM Question Answer Comments Full Code: Discussed * Full Code Date Activated Date Inactivated Comments 02/24/2022 5:49 AM 02/24/2022 10:14 AM Question Answer Comments Full Code: Discussed with * DNR/DNI Date Activated Date Inactivated Comments 08/12/2021 10:28 PM 08/13/2021 6:14 PM * Full Code Date Activated Date Inactivated Comments 08/12/2021 8:29 PM 08/12/2021 10:28 PM Question Answer Comments Full Code: Discussed Care Teams Brake Specialist Relationship Specialty Start Date End Date Jagruti Tyler M.D. [address] [place] [phone] PCP - General Family Medicine 05/11/21
--- OUTSIDE RECORDS SUMMARY | 2024-06-24 08:06 | XMS_ITS | Patient Health Record ---
Author Organization [facility] Address [address] [place] [address] Care Team Providers Care Sour Bleaching Pleater Name Role Phone Jagruti Tyler Primary Care Provider UnavailKarsten James Unavailable [phone] Shira Chen Unavailable [phone] Sean Villa Unavailable [phone] Beau Rosario Unavailable [phone] Bonnie Alfredo Unavailable [phone] Ana Pringle Unavailable [phone] Allergies Allergen (clinical drug ingredient) Drug/Non Drug [...] [facility] Referred Provider Jonny RehabilitaAbrahan reynolds Referred Address [address], [place],[address],[place] Referred Provider Specialty Rehabilitati on General Notes Liana Quispe 04/25/20 11:05:18 AM >BCBS no PA samantaq. Ok to schedule, Dinorah Rivera 04/25/2024 02:04:29 PM >lmtcb and sent TE to sched 1, Dinorah Rivera 04/25/2024 02:11:04 PM >Pt scheduled Referral Priority Routine Medications Medication SIG (Take, Route, Frequency, Duration) Notes Start Date End Date Status Lacosamide 100 MG 1 tablet Orally Twice a day 04/25/2024 Active Omeprazole 20 MG Take 20 mg by mouth at bedtime Oral Imported from [facility] (25-Oct-2020 at 08:10:48 AM) Active clonazePAM 1 MG 0.5 tablet as needed for anxiety or seizures Orally Twice a day 04/25/2024 Active Doxycycline Hyclate 100 MG Take 100 mg by mouth 2 times daily Oral Imported from [facility] (25-Oct-2020 at 08:10:48 AM) 09/13/2019 Active Metoprolol Tartrate 25 MG 1 tablet with food Orally Twice a day 04/25/2024 Active Atorvastatin Calcium 10 MG Take 10 mg by mouth daily Oral Imported from [facility] (25-Oct-2020 at 08:10:48 AM) Active Apixaban 5 MG 1 tablet Orally Twice a day 04/25/2024 Active Thiamine HCl 100 MG Take 100 mg by mouth daily Oral Imported from [facility] (25-Oct-2020 at 08:10:48 AM) Active Ibuprofen 200 MG Take 200 mg by mouth every 6 hours as needed for mild pain Oral Imported from [facility] (25-Oct-2020 at 08:10:48 AM) Active Calcium Carbonate [...] Status Risk Notes Problem Cerebellar ataxia (disorder) (72545307) 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) Active confirmed Problem Muscle wasting disorder (00508352) Muscle wasting and atrophy, not elsewhere classified, multiple sites (M62.59) Active confirmed Problem Bipolar disorder (79118084) Bipolar disorder (F31.9) 10/18/19 20 Active confirmed Problem Psychoactive substance dependence (7760420) Other psychoactive substance dependence, uncomplicated (F19.20) 10/31/19 21 Active confirmed Problem Hereditary disorder of nervous system (041222249) Hereditary and idiopathic neuropathy, unspecified (G60.9) 10/31/19 21 Active confirmed Problem Postural kyphosis (501762979) Postural kyphosis, 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) 10/31/19 Active confirmed Problem Inflammatory spondylopathy (940111000) Unspecified inflammatory spondylopathy, 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) 10/31/19 21 Active confirmed Problem Segmental and somatic dysfunction (634928025) Segmental and somatic dysfunction of cervical region (M99.01) 10/31/19 21 Active confirmed Problem Segmental and somatic dysfunction (769778587) Segmental and somatic dysfunction of thoracic region (M99.02) 10/31/19 21 Active confirmed Problem Somatic dysfunction of lumbar region (540888347) Segmental and somatic dysfunction of lumbar region (M99.03) 10/31/19 Active confirmed Problem Abnormal gait (05963130) Other abnormalities of gait and mobility (R26.89) 10/31/19 Active confirmed Problem Lack of coordination (171138409) Unspecified lack of coordination (R27.9) 10/31/19 Active confirmed Problem Malaise (001798958) Other malaise (R53.81) 10/31/19 Active confirmed Problem Seizure (69757944) Unspecified convulsions (R56.9) 10/31/19 Active confirmed Problem Cervicalgia (91414118) Cervicalgia (M54.2) 10/31/19 Active confirmed Vital Signs Blood pressure diastolic 82 mm Hg 04/25/2024 Height 6ft in 04/25/2024 Blood pressure systolic 126 mm Hg 04/25/2024 Weight 174.8 lbs 04/25/2024 BMI 23.7 kg/m2 04/25/2024 Encounters Encounter Location Date Provider Diagnosis [facility] [address] [place] [address] 04/25/2024 Karsten Butler Segmental and somatic dysfunction of cervical region M99.01 ; 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 G32.81 ; Segmental and somatic dysfunction of thoracic region M99.02 ; Segmental and somatic dysfunction of lumbar region M99.03 ; Other abnormalities of gait and mobility R26.89 ; Unspecified lack of coordination R27.9 and Unspecified convulsions R56.9 [facility] [address] [place] [address] 04/27/2024 Ana Pringle 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 G32.81 ; Segmental and somatic dysfunction of cervical region M99.01 ; Segmental and somatic dysfunction of thoracic region M99.02 ; Segmental and somatic dysfunction of lumbar region M99.03 ; Other abnormalities of gait and mobility R26.89 and Unspecified lack of coordination R27.9 [facility] [address] [place] [address] 05/10/2024 Sean Villa 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 G32.81 ; Segmental and somatic dysfunction of cervical region M99.01 ; Segmental and somatic dysfunction of thoracic region M99.02 ; Segmental and somatic dysfunction of lumbar region M99.03 ; Other abnormalities of gait and mobility R26.89 and Unspecified lack of coordination R27.9 [facility] [address] [place] [address] 05/12/2024 Sean Villa 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 G32.81 ; Segmental and somatic dysfunction of cervical region M99.01 ; Segmental and somatic dysfunction of thoracic region M99.02 ; Segmental and somatic dysfunction of lumbar region M99.03 ; Other abnormalities of gait and mobility R26.89 and Unspecified lack of coordination R27.9 [facility] [address] [place] [address] 05/17/2024 Ana Sears 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 G32.81 ; Segmental and somatic dysfunction of cervical region M99.01 ; Segmental and somatic dysfunction of thoracic region M99.02 ; Segmental and somatic dysfunction of lumbar region M99.03 ; Other abnormalities of gait and mobility R26.89 and Unspecified lack of coordination R27.9 [facility] [address] [place] [address] 05/19/2024 Ana Sears 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 G32.81 ; Segmental and somatic dysfunction of cervical region M99.01 ; Segmental and somatic dysfunction of thoracic region M99.02 ; Segmental and somatic dysfunction of lumbar region M99.03 ; Other abnormalities of gait and mobility R26.89 and Unspecified lack of coordination R27.9 [facility] [address] [place] [address] 05/24/2024 Beau Rosario 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 G32.81 ; Segmental and somatic dysfunction of cervical region M99.01 ; Segmental and somatic dysfunction of thoracic region M99.02 ; Segmental and somatic dysfunction of lumbar region M99.03 ; Other abnormalities of gait and mobility R26.89 and Unspecified lack of coordination R27.9 [facility] [address] [place] [address] 05/26/2024 Ana Yary 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 G32.81 ; Segmental and somatic dysfunction of cervical region M99.01 ; Segmental and somatic dysfunction of thoracic region M99.02 ; Segmental and somatic dysfunction of lumbar region M99.03 ; Other abnormalities of gait and mobility R26.89 and Unspecified lack of coordination R27.9 [facility] [address] [place] [address] 05/31/2024 Sean Villa 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 G32.81 ; Segmental and somatic dysfunction of cervical region M99.01 ; Segmental and somatic dysfunction of thoracic region M99.02 ; Segmental and somatic dysfunction of lumbar region M99.03 ; Other abnormalities of gait and mobility R26.89 ; Unspecified lack of coordination R27.9 and Cervicalgia M54.2 [facility] [address] [place] [address] 06/02/2024 Ana Sears 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 G32.81 ; Segmental and somatic dysfunction of cervical region M99.01 ; Segmental and somatic dysfunction of thoracic region M99.02 ; Segmental and somatic dysfunction of lumbar region M99.03 ; Other abnormalities of gait and mobility R26.89 ; Unspecified lack of coordination R27.9 and Cervicalgia M54.2 [facility] [address] [place] [address] 06/07/2024 Ana Sears 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 G32.81 ; Segmental and somatic dysfunction of cervical region M99.01 ; Segmental and somatic dysfunction of thoracic region M99.02 ; Segmental and somatic dysfunction of lumbar region M99.03 ; Other abnormalities of gait and mobility R26.89 ; Unspecified lack of coordination R27.9 and Cervicalgia M54.2 [facility] [address] [place] [address] 06/09/2024 Shiratarik Valdesbee 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 G32.81 ; Segmental and somatic dysfunction of cervical region M99.01 ; Segmental and somatic dysfunction of thoracic region M99.02 ; Segmental and somatic dysfunction of lumbar region M99.03 ; Other abnormalities of gait and mobility R26.89 ; Unspecified lack of coordination R27.9 and Cervicalgia M54.2 [facility] [address] [place] [address] 06/23/2024 Ana Yary 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 G32.81 ; Segmental and somatic dysfunction of cervical region M99.01 ; Segmental and somatic dysfunction of thoracic region M99.02 ; Segmental and somatic dysfunction of lumbar region M99.03 ; Other abnormalities of gait and mobility R26.89 ; Unspecified lack of coordination R27.9 and Cervicalgia M54.2 [facility] [address] [place] [address] 04/25/2024 Karsten Butler [facility] [address] [place] [address] [address] [place] [address] 04/25/2024 Karsten Butler Assessments Encounter Date Diagnosis [...] diseases classified elsewhere (ICD-10 - G32.81) 06/23/2024 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 (ICD-10 - G32.81) 06/23/2024 Segmental and somatic dysfunction of cervical region (ICD-10 - M99.01) 06/09/2024 Segmental and somatic dysfunction of cervical [...] region (ICD-10 - M99.02) 06/23/2024 Segmental and somatic dysfunction of thoracic region (ICD-10 - M99.02) 06/23/2024 Segmental and somatic dysfunction of lumbar region (ICD-10 - M99.03) 06/09/2024 Segmental and somatic dysfunction of lumbar [...] gait and mobility (ICD-10 - R26.89) 06/23/2024 Other abnormalities of gait and mobility (ICD-10 - R26.89) 06/23/2024 Unspecified lack of coordination (ICD-10 - R27.9) 06/09/2024 Unspecified lack of coordination (ICD-10 - [...] - M54.2) 06/07/2024 Cervicalgia (ICD-10 - M54.2) 06/23/2024 Cervicalgia (ICD-10 - M54.2) 04/25/2024 Other Kianna Desouza , am serving as a scribe to [...] Of Treatment Next Appt Details Provider Name:Sean Patel Mariomichelleshahriar henry, 06/28/2024 08:00:00 AM, [address] [place], [address], Provider Name:Sean Patel Mariomichelleshahriar henry, 07/01/2024 08:00:00 AM, [address] [place], [address], Provider Name:Sean Patel Mariomichelleshahriar henry, 07/05/2024 08:00:00 AM, [address] [facility] , [place], [address], Insurance Providers Payer Name Payer Address Payer Phone Subscriber Number Group Number Insured Name Patient Relationship to Insured Coverage Start Date Coverage End Date [facility] Advantage [address] [address] [place] [address] [id number] Salvatore Mahmood Self - patient is the insured 4 Medicare Part B [employer] [address] [place] [address] [phone] [id number] Salvatore Mahmood Self - patient is the insured 2 Medical (General) History Medical History History ICD Code Depression Heart disease Lung disease Lung cancer (2017) Chemical dependency Hypertension Anxiety Coronary artery disease Surgical History Surgery Date(Month/Year) Hospitalization History Reason Date(Month/Year) COVID-19 and penumonia
--- OUTSIDE RECORDS SUMMARY | 2024-06-24 08:06 | XMS_ITS | Encounter Summary ---
Author Organization [facility] Address [address] [address] Care Team Providers Care Active Directory Systems Administrator Name Role Phone Segun Hopkins MD Primary Care Provider Encounter Details Date Type Department Care Team (Late st Contact Info) Description 01/30/2017 Correspondence [facility] Radiology [address] [place] [address] Radiology, Provider MRI SAFETY SHEET AND COMPATIBILITY [...] on filedocumented in this encounter Care Teams Active Directory Systems Administrator Relationship Specialty [place] [address] [place] [address] PCP - General Family Practice 01/30/17 documented as of this encounter
--- OUTSIDE RECORDS SUMMARY | 2024-06-24 08:06 | XMS_ITS | Clinical Summary ---
Author Organization [facility] Address [address] [place] [address] Care Team Providers Care Log Cutter Name Role Phone Segun Hopkins MD Primary Care Provider [phone] Source Comments You are receiving this document [...] for each transition of care or referral. [facility] Allerg[facility] Active Allergy Reactions Criticality Noted Date [...] Comments Blood Pressure 130/69 07/24/2021 9:16 AM PATCHER WOOD WELDER Pulse 59 07/24/2021 9:16 AM PATCHER WOOD WELDER Temperature 37 ??C (98.6 ??F) 07/24/2021 9:16 AM PATCHER WOOD WELDER Respiratory Rate 18 07/24/2021 9:15 AM PATCHER WOOD WELDER Oxygen Saturation 98% 07/24/2021 9:15 AM PATCHER WOOD WELDER Inhaled Oxygen Concentration - - Weight 92 [...] 2:50 PM 01/31/2017 1:50 PM Care Teams Log Cutter Relationship Specialty [place] [address] [facility] [address] PCP - General Family Practice 01/30/17
--- OUTSIDE RECORDS SUMMARY | 2024-06-24 08:06 | XMS_ITS | Referral Summary ---
Author Organization [facility] Address [address] [place] [address]. [place] [address] Care Team Providers Care Cyber Workforce Developer And Manager Name Role Phone Segun Hopkins MD Primary Care Provider [phone] Allergies Active Allergy Reactions Criticality Noted Date [...] Adenocarcinoma NOS Atherosclerotic heart diseas e of [place] coronary artery without angina pectoris 06/13/2016 Acute [...] on file Legal Sex Male 3:06 AM SENIOR CONSUMER INSIGHTS CONSULTANT Gender Identity Not on file Sexual Orientation [...] 188 cm (6' 2) 10/15/2019 3:55 PM SENIOR CONSUMER INSIGHTS CONSULTANT Body Mass Index 27.14 10/15/2019 3:55 PM SENIOR CONSUMER INSIGHTS CONSULTANT Plan of Treatment Not on file Insurance [facility] [place] [id number] [place] [id number] Advance Directives For more information, please contact: [phone] * Full Code (Latest Code Status on [...] 10:25 AM 05/07/2016 6:52 PM Care Teams Cyber Workforce Developer And Manager Relationship Specialty Start Date End Date Segun Hopkins MD [facility] [address] [place] [address] PCP - General Family Practice 10/09/15
--- OUTSIDE RECORDS SUMMARY | 2024-06-24 08:07 | XMS_ITS | Encounter Summary ---
Author Organization [facility] Address [address] [place] [address] Care Team Providers Care Tax Commissioner Name Role Phone Jagruti Tyler M.D. Primary Care Provider [phone] Reason for Visit * Reason Comments Med Refill Encounter Details Date Type Department Care Team (Late st Contact Info) Description 06/22/2024 Refill Department of Family Medicine, [facility], in [address] [phone] Jagruti Tyler M.D. [address] [place] [phone] Med Refill Social History Tobacco Use Types Packs/Day Years Used Date Smoking Tobacco: Every Day Cigarettes 1 49.2 Started: 04/10/1975 Passive Smoke Exposure: Past Smokeless Tobacco: Former Quit: 12/01/2018 Comments:Currently vapes jackelin otine on hourly basis Alcohol Use Standard Drinks/Week Comments Not Currently 21 (1 standard drink = 0.6 oz pu re alcohol) [facility] Utilities Answer Date Recorded In the past 12 months has e [employer], gas, oil, or water [employer] threatened to shut off services in your [...] week 11/19/2022 How often do you attend chur or faith services? More than 4 times per year 11/19/2022 Do you belong to any clubs o r organizations such as methodist groups, unions, fraternal or athletic groups, or [...] Answer Date Recorded PHQ-2 Score 2 12/21/2023 [facility] - Occupational [...] your living situation today? I have a [facility] place to live 12/21/2023 Education Answer Date Recorded What is the highest level of school you have completed or the highest degree you have received? Some college, no degree 02/11/2019 Sex and Gender Information Value Date Recorded Sex Assigned at Male 09/02/2017 9:18 AM TRANSLATION DIRECTOR Legal Sex Male 7:21 PM TRANSLATION DIRECTOR Gender Identity Male 09/02/2017 9:18 AM TRANSLATION DIRECTOR Sexual Orientation Straight 09/02/2017 9: 18 AM TRANSLATION DIRECTOR documented as of this encounter Miscellaneous Notes * Telephone Encounter - Jagruti Tyler M.D. - 06/23/2024 10:14 AM TRANSLATION DIRECTOR Prescription approved. SLATION DIRECTOR documented in this encounter Plan of Treatment Upcoming Encounters Date Type Department Care Team (Late st Contact Info) Description 06/29/2024 8:50 AM TRANSLATION DIRECTOR Appointment Department of Laboratory Medicine in [address] [phone] Fatou Rivas M.D. [address] [place] [phone] 07/04/2024 7:15 AM TRANSLATION DIRECTOR Office Visit Department of Family Medicine, [facility], in [address] [phone] Jagruti Tyler M.D. [address] [place] [phone] Discharge Disposition: Home or Self Care 07/20/2024 9:50 AM TRANSLATION DIRECTOR Appointment Department of Laboratory Medicine in [address] [phone] Fatou Rivas M.D. [address] [place] [phone] documented as of this encounter Visit Diagnoses Not on filedocumented in this encounter Additional Health Concerns Assessment Noted Time PHQ-9 Depression Total Score: 4 02/18/20 23 9:12 AM CDT documented as of this encounter Care Teams Tax Commissioner Relationship Specialty Start Date End Date Jagruti Tyler M.D. [address] [place] [phone] PCP - General Family Medicine 05/11/21 documented as of this encounter
--- OUTSIDE RECORDS SUMMARY | 2024-06-24 08:07 | XMS_ITS | Encounter Summary ---
Author Organization [facility] Address [address] [place] [address] Care Team Providers Care Tennis Coach Name Role Phone Jagruti Tyler M.D. Primary Care Provider [phone] Reason for Visit * Reason Comments Med Refill Encounter Details Date Type Department Care Team (Late st Contact Info) Description 05/22/2024 Refill Department of Family Medicine, [facility], in [address] [phone] Jagruti Tyler M.D. [address] [place] [phone] Med Refill Social History Tobacco Use Types Packs/Day Years Used Date Smoking Tobacco: Every Day Cigarettes 1 49.2 Started: 04/10/1975 Passive Smoke Exposure: Past Smokeless Tobacco: Former Quit: 12/01/2018 Comments:Currently vapes jackelin otine on hourly basis Alcohol Use Standard Drinks/Week Comments Not Currently 21 (1 standard drink = 0.6 oz pu re alcohol) [facility] Utilities Answer Date Recorded In the past 12 months has e [employer], gas, oil, or water [employer] threatened to shut off services in your [...] How often do you attend chur or islam services? More than 4 times per year [...] Answer Date Recorded PHQ-2 Score 2 12/21/2023 [facility] - Occupational Stress [...] your living situation today? I have a [facility] place to live 12/21/2023 Education Answer Date Recorded What is the highest level of school you have completed or the highest degree you have received? Some college, no degree 02/11/2019 Sex and Gender Information Value Date Recorded Sex Assigned at Male 09/02/2017 9:18 AM BURRING WHEEL OPERATOR Legal Sex Male 7:21 PM BURRING WHEEL OPERATOR Gender Identity Male 09/02/2017 9:18 AM BURRING WHEEL OPERATOR Sexual Orientation Straight 09/02/2017 9: 18 AM BURRING WHEEL OPERATOR documented as of this encounter Miscellaneous Notes * Telephone Encounter - Jagruti Tyler M.D. - 05/24/2024 5:54 AM CDT Prescription approved. documented in this encounter Plan of Treatment Upcoming Encounters Date Type Department Care Team (Late st Contact Info) Description 06/29/2024 8:50 AM BURRING WHEEL OPERATOR Appointment Department of Laboratory Medicine in [address] [phone] Fatou Rivas M.D. [address] [place] [phone] 07/04/2024 7:15 AM BURRING WHEEL OPERATOR Office Visit Department of Family Medicine, [facility], in [address] [phone] Jagruti Tyler M.D. [address] [place] [phone] Discharge Disposition: Home or Self Care 07/20/2024 9:50 AM BURRING WHEEL OPERATOR Appointment Department of Laboratory Medicine in [address] [phone] Fatou Rivas M.D. 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 [address] [place] [phone] PCP - General Family Medicine 05/11/21 documented as of this encounter
--- OUTSIDE RECORDS SUMMARY | 2024-06-24 08:07 | XMS_ITS | Encounter Summary ---
Author Organization [facility] Address [address] [place] [address] Care Team Providers Care Drilling Field Professional Name Role Phone Jagruti Tyler M.D. Primary Care Provider [phone] Encounter Details Date Type Department Care Team (Latest Contact Info) Description 05/18/2024 9:50 AM CDT - 05/18/2024 11:59 PM CDT Hospital Encounter Department of Laboratory Medicine in [address] [phone] Fatou Rivas M.D. [address] [place] [phone] Hyponatremia Discharge Disposition: Home or Self Care Social History Tobacco Use Types Packs/Day Years Used Date Smoking Tobacco: Every Day Cigarettes 1 49.2 Started: 04/10/1975 Passive Smoke Exposure: Past Smokeless Tobacco: Former Quit: 12/01/2018 Comments:Currently vapes jackelin otine on hourly basis Alcohol Use Standard Drinks/Week Comments Not Currently 21 (1 standard drink = 0.6 oz pu re alcohol) [facility] Utilities Answer Date Recorded In the past 12 months has th e [employer], gas, oil, or water [employer] threatened to shut off services in your [...] week 11/19/2022 How often do you attend [facility] or denominational services? More than 4 times per year 11/19/2022 Do you belong to any clubs o r organizations such as cheondoism groups, unions, fraternal or athletic groups, or [...] Answer Date Recorded PHQ-2 Score 2 12/21/2023 [facility] - Occupational Stress Questionnaire Answer Date [...] your living situation today? I have a [facility] place to live 12/21/2023 Education Answer Date Recorded What is the highest level of school you have completed or the highest degree you have received? Some college, no degree 02/11/2019 Sex and Gender Information Value Date Recorded Sex Assigned at Male 09/02/2017 9:18 AM DIE TRY OUT WORKER STAMPING Legal Sex Male 7:21 PM DIE TRY OUT WORKER STAMPING Gender Identity Male 09/02/2017 9:18 AM DIE TRY OUT WORKER STAMPING Sexual Orientation Straight 09/02/2017 9: 18 AM DIE TRY OUT WORKER STAMPING documented as of this encounter Medications at Time of Discharge apixaban (Eliquis) 5 mg tablet Take 1 tablet (5 mg total) by mouth 2 (two) times a day. 180 tablet 3 03/04/2024 atorvastatin (LIPITOR) 10 mg tablet Take 1 tablet (10 mg total) by mouth daily. 90 tablet 3 10/07/2023 calcium carbonate-vitamin D3 (Oysco 500/D) 1,250 mg (500 mg calcium)-5 mcg (200 Unit) per tablet Take 2 tablets by mouth daily. 180 tablet 3 12/22/2023 clonazePAM (KlonoPIN) 1 mg tablet TAKE 1/2 TABLET BY MOUTH TWICE DAILY NEEDED FOR ANXIETY OR SEIZURES(AMISHA) 28 tablet 02/25/2024 fluticasone propionate (FLONASE) 50 mcg/actuation nasal sprayIndications:Rh initis Chronic Administer 2 sprays into each nostril daily. 48 g 3 12/22/2023 ipratropium (Atrovent) 21 mcg (0.03 %) nasal sprayIndications:Rh initis Chronic Administer 2 sprays into each nostril 3 (three) times a day as needed for rhinitis. 30 mL 11 03/07/2024 lacosamide (Vimpat) 100 mg tabletIndications:F ocal Epilepsy Symptomatic Intractable Without Status Epilepticus (HCC) Take 1 tablet (100 mg total) by mouth 2 times a day. 180 tablet 3 02/25/2024 lamoTRIgine (LaMICtaL) 25 mg tabletIndications:O ther Seizures (HCC) Take 2 tablets (50 mg total) by mouth 2 (two) times a day. 360 tablet 3 10/07/2023 levothyroxine (SYNTHROID, LEVOTHROID) 75 mcg tablet Take 1 tablet (75 mcg total) by mouth daily. 90 tablet 3 12/22/2023 lidocaine (LIDODERM) 5 % Place 1 patch on the skin daily. Apply to painful area 12 hours per day, remove for 12 hours. 30 patch 1 11/04/2021 metoprolol tartrate (Lopressor) 25 mg tablet take 1 tablet by mouth twice daily 180 tablet 3 03/16/2024 omeprazole (PriLOSEC) [address] capsule Take 1 capsule (40 mg total) by mouth every morning before breakfast. 90 capsule 3 09/03/2023 QUEtiapine (SEROqueL) 100 mg tabletIndications:O ther Bipolar Disorder (HCC) Take 1.5 tablets (150 mg total) by mouth at bedtime. 145 tablet 3 03/15/2024 sodium chloride 1,000 mg disintegrating tabletIndications:H yponatremia Take 5 tablets (5 g total) by mouth 2 (two) times a day. 240 tablet 11 04/12/2024 thiamine (VITAMIN B1) 100 mg tablet Take 1 tablet (100 mg total) by mouth daily. 90 tablet 3 12/22/2023 divalproex (DEPAKOTE ER) 250 mg 24 hr tabletIndications:F ocal Epilepsy Symptomatic Intractable Without Status Epilepticus (HCC) Take 1 tablet (250 mg total) by mouth every evening. 90 tablet 3 06/11/2023 4 divalproex (DEPAKOTE ER) 500 mg 24 hr tabletIndications:F ocal Epilepsy Symptomatic Intractable Without Status Epilepticus (HCC),Bipolar Disorder (HCC) Take 2 tablets (1,000 mg total) by mouth 2 (two) times a day. 360 tablet 3 06/11/2023 4 doxycycline hyclate (VIBRAMYCIN) 100 mg capsule Take 1 capsule (100 mg total) by mouth 2 (two) times a day. 180 capsule 3 06/11/2023 4 documented as of this encounter Plan of Treatment Upcoming Encounters Date Type Department Care Team (Late st Contact Info) Description 06/29/2024 8:50 AM DIE TRY OUT WORKER STAMPING Appointment Department of Laboratory Medicine in [address] [phone] Fatou Rivas M.D. [address] [place] [phone] 07/04/2024 7:15 AM DIE TRY OUT WORKER STAMPING Office Visit Department of Family Medicine, [facility], in [address] [phone] Jagruti Tyler M.D. [address] [place] [phone] Discharge Disposition: Home or Self Care 07/20/2024 9:50 AM DIE TRY OUT WORKER STAMPING Appointment Department of Laboratory Medicine in [address] [phone] Fatou Rivas M.D. [address] [place] [phone] documented as of this encounter Procedures Procedure Name Priority Date/Time Associated Diagnosis Comments BASIC METABOLIC PANEL, S/P Routine 05/18/2024 10:01 AM CDT Hyponatremia documented in this encounter Results * (ABNORMAL) Basic Metabolic Panel (05/18/2024 10:01 AM CDT) Potassium, P 4.5 3.6 - 5.2 mmol/L 05/18/2024 10:29 AM CDT CNFL Sodium, P 136 135 - 145 mmol/L 05/18/2024 10:29 AM CDT CNFL Chloride, P 101 98 - 107 mmol/L 05/18/2024 10:29 AM CDT CNFL Bicarbonate, P 28 22 - 29 mmol/L 05/18/2024 10:29 AM CDT CNFL Anion Gap, P 7 7 - 15 05/18/2024 10:29 AM CDT CNFL BUN (Blood Urea Nitrogen), P 16 8 - 24 mg/dL 05/18/2024 10:29 AM CDT CNFL Creatinine 0.63(L) 0.74 - 1.35 mg/dL 05/18/2024 10:29 AM CDT CNFL Estimated GFR (eGFR) >90 >=60 mL/min/BSA 05/18/2024 10:29 AM CDT CNFL Comment: Estimated GFR calculated using the 2020 CKD_EPI creatinine equation. Calcium, Total, P 9.1 8.8 - 10.2 mg/dL 05/18/2024 10:29 AM CDT CNFL Glucose, P 130 70 - 140 mg/dL 05/18/2024 10:29 AM CDT CNFL Blood (Blood, Venous) 05/18/2024 10:01 AM CDT 05/18/2024 10:07 AM CDT Fatou Rivas M.D. LAB BLOOD ADD-ON Final Result [facility] [address] [place] [phone], [facility] CNFL [facility] in [address] [phone] documented in this encounter Visit Diagnoses Diagnosis Hyponatremia documented in this encounter Additional Health Concerns Assessment Noted Time PHQ-9 Depression Total Score: 4 02/18/20 23 9:12 AM CDT documented as of this encounter Care Teams Drilling Field Professional Relationship Specialty Start Date End Date Jagruti Tyler M.D. [address] [place] [phone] PCP - General Family Medicine 05/11/21 documented as of this encounter
--- OUTSIDE RECORDS SUMMARY | 2024-06-24 08:07 | XMS_ITS | Encounter Summary ---
Author Organization [facility] Address [address] [place] [address] Care Team Providers Care Clinical Educator Name Role Phone Jagruti Tyler M.D. Primary Care Provider [phone] Reason for Visit * Reason Onset Date Comments Pre-visit Intake 04/25/2024 Encounter Details Date Type Department Care Team (Latest Contact Info) Description 04/25/2024 1:30 PM CDT Clinical Communication Virtual Review in [address] [phone] Pre-visit Intake Social History Tobacco Use Types Packs/Day Years Used Date Smoking Tobacco: Every Day Cigarettes 1 49.2 Started: 04/10/1975 Passive Smoke Exposure: Past Smokeless Tobacco: Former Quit: 12/01/2018 Comments:Currently vapes jackelin otine on hourly basis Alcohol Use Standard Drinks/Week Comments Not Currently 21 (1 standard drink = 0.6 oz pu re alcohol) [facility] Utilities Answer Date Recorded In the past 12 months has e electric, gas, oil, or water company threatened to shut off services in your [...] week 11/19/2022 How often do you attend [facility] or gnosticist services? More than 4 times per year 11/19/2022 Do you belong to any clubs o r organizations such as mandaen groups, unions, fraternal or athletic groups, or [...] Answer Date Recorded PHQ-2 Score 2 12/21/2023 [facility] [place] [facility] - Occupational Stress [...] money to buy more. Never true 12/21/19 Within the past 12 months, t he [...] your living situation today? I have a [facility] place to live 12/21/2023 Education Answer Date Recorded What is the highest level of school you have completed or the highest degree you have received? Some college, no degree 02/11/2019 Sex and Gender Information Value Date Recorded Sex Assigned at Male 09/02/2017 9:18 AM LAP WELDER Legal Sex Male 7:21 PM LAP WELDER Gender Identity Male 09/02/2017 9:18 AM LAP WELDER Sexual Orientation Straight 09/02/2017 9: 18 AM LAP WELDER documented as of this encounter Plan of Treatment Upcoming Encounters Date Type Department Care Team (Late st Contact Info) Description 06/29/2024 8:50 AM LAP WELDER Appointment Department of Laboratory Medicine in [address] [phone] Fatou Rivas M.D. [address] [place] [phone] 07/04/2024 7:15 AM LAP WELDER Office Visit Department of Family Medicine, [facility], in [address] [phone] Jagruti Tyler M.D. [address] [place] [phone] Discharge Disposition: Home or Self Care 07/20/2024 9:50 AM LAP WELDER Appointment Department of Laboratory Medicine in [address] [phone] Fatou Rivas M.D. [address] [place] [phone] documented as of this encounter Visit Diagnoses Not on filedocumented in this encounter Additional Health Concerns Assessment Noted Time PHQ-9 Depression Total Score: 4 02/18/20 23 9:12 AM CDT documented as of this encounter Care Teams Clinical Educator Relationship Specialty Start Date End Date Jagruti Tyler M.D. [address] [place] [phone] PCP - General Family Medicine 05/11/21 documented as of this encounter
--- OUTSIDE RECORDS SUMMARY | 2024-06-24 08:07 | XMS_ITS | Encounter Summary ---
Author Organization [facility] Address [address] [place] [address] Care Team Providers Care Lottery Sales Clerk Name Role Phone Jagruti Tyler M.D. Primary Care Provider [phone] Reason for Visit * Outpatient (Routine) - Closed Specialty Diagnoses / Procedures Referred By Livan reyes Referred To Contact Ophthalmology Anil Rosas M.B., BModesto Valenzuela [address] [place] [phone] Phone: tel: fax: Cody Gonzalez M.D. [address] [place] [phone] Phone: tel: fax: Referral ID Status Reason Start Date Expiration Date Visits Re quested Visits Authorized [id number] Closed 02/01/2024 08/02/2025 1 1 Encounter Details Date Type Department Care Team (Latest Contact Info) Description 04/26/2024 1:15 PM CDT Office Visit Department of Ophthalmology in [place], [place] [address] [place] [address] [phone] Cody Gonzalez M.D. [address] [place] [phone] Nystagmus (Primary Dx); Diplopia; Age Related Nuclear Cataract Bilateral; Ataxia; Laser Assisted In Situ Keratomileusis Status Post Social History Tobacco Use Types Packs/Day Years [...] In the past 12 months has e [employer], oil, or water [employer] threatened to shut off services in your [...] How often do you attend chur or voodoo services? More than 4 times per year 11/19/2022 Do you belong to any clubs o r organizations such as confucianism groups, unions, fraternal or athletic groups, or [...] Answer Date Recorded PHQ-2 Score 2 12/21/2023 [facility] ional [facility] - Occupational [...] Date Recorded Dental: Regular Dentist Yes 02/23/20 21 Employment Answer Date Recorded Employment status Retired 12/21/2023 Housing Stability Answer Date Recorded What is your living situation today? I have a [facility] place to live 12/21/2023 Education Answer Date Recorded What is the highest level of school you have completed or the highest degree you have received? Some college, no degree 02/11/2019 Sex and Gender Information Value Date Recorded Sex Assigned at Male 09/02/2017 9:18 AM COMPOSITION PROFESSOR Legal Sex Male 7:21 PM COMPOSITION PROFESSOR Gender Identity Male 09/02/2017 9:18 AM COMPOSITION PROFESSOR Sexual Orientation Straight 09/02/2017 9: 18 AM COMPOSITION PROFESSOR documented as of this encounter Progress Notes * Cody Gonzalez M.D. - 04/26/2024 1:15 PM CDT ASSESSMENT / PLAN #1 Downbeat Nystagmus #2 Ataxia #3 Alcohol use disorder #4 Seizures on multiple antiepileptics #5 S/p myopic LASIK, both eyes (2004) #6 History of lung adenocarcinoma status post right lower lobe resection and chemotherapy (2016) #7 Cataract, both eyes Overall Impression 04/26/2024: The patient was referred for evaluation of double vision. The patient's initial exam 06/18/21 showed ataxia and downbeat nystagmus. He did not have any misalignment of the eyes on alternate cover testing but he had abnormal pursuit and saccades. The exam 02/04/22 showed central acuity of 20/25-2 right eye and 20/30-2 left eye with normal pupilsand color vision. The efferent exam showed trace limitation in bilateral abduction, adduction, and depression. Alternate cover testing showed a small angle esotropia and left hypotropia. He had downbeat nystagmus and choppy pursuit. The dilated fundus exam was unremarkable. The exam 07/01/22 showed central acuity of 20/25-2 right eye and 20/25-2 left eye with normal pupils and color vision. The efferent exam showed full extraocular motility. Alternate cover testing showed no ocular misalignment. Downbeat nystagmus, choppy saccades, and choppy pursuit were present. The exam 04/26/24 showed central acuity of 20/20-2 right eye and 20/20-2 left eye with normal pupilsand color vision. The efferent exam showed full extraocular motility. Alternate cover testing showed a small esophoria in the distance. There was a subtle gaze evoked nystagmus in horizontal gaze with subtle downbeat component in lateral gaze. The dilated fundus exam showed normal optic nerves without pallor or edema. After extensive evaluation with Neurology he was diagnosed with a syndrome of immunotherapy responsive ataxia, diplopia, and encephalopathy. Autoimmune neurology is guiding treatment. He has previously been on IVIG and had plasma exchange, which improved/resolved his symptoms, but the effect was not durable. At present he is not on any immunotherapy and it is recommended that he continue monitoring without additional treatment. It was proposed that his ataxia could be secondary to prior heavy alcohol use. From an ophthalmic standpoint, we previous tried Fresnel prism for his double vision, but the patient reported that he could have intermittent double vision whether he is using the prism or not. We were not able to detect any misalignment on exam Jun-2022. More recently, he has been wearing ground in prism in glasses (total of 4 base out). He is doing well with this prism in his not notice horizontal diplopia very often. Can occasionally notice some oscillopsia, particularly if he is stressed or tired. The exam today is overall stable to improved compared to prior. I recommended he continue with the prism glasses and return to Neuro-Ophthalmology as needed. I otherwise recommended he continue with routine ophthalmic exams locally at least yearly. HPI In Dec-2020 developed intermittent binocular vertical diplopia occurring every other day lasting hours. This has gotten worse over the past month and has become constant over the past week. Pattern has changed to diagonal. Initially when he wakes up, he seems to be fine, it starts around noon and lasts all day. It gets better with naps. No ptosis. Feels generally weak, and gets fatigued with activities. No dysphagia. No fevers or chills. Has lost 15 lbs over the past year. Has never experiencedsimilar symptoms. The patient was referred by Dr. Melendez who saw the patient 04/16/2021 for diplopia. At that time the patient was describing intermittent double vision for 6 months. This had been both vertical and horizontal, worse in the distance than near the. Acetylcholine receptor binding antibody was checked(04/24/21) and negative. TSH was normal (05/11/21). He was in the hospital both on 05/11/2021 and 05/17/2021 for mental status changes. He had an MRI brain 20 May 2021 that did not reveal any specific pathology. He has a history of lung adenocarcinoma status post chemotherapy 2016 and status post right lower lobe resection and chemotherapy (cisplatin, docetaxel; 2016). He has a history of epilepsy (managed by Dr. Rivero, neurology). He takes valproic acid and lamotrigine. This has been attributed to low sodium. Labs: paraneoplastic panel pending. CBC shows anemia on Iron, BMP shows hyponatremia, Thiamine was 278 elevated, B12 was >1400, Vitamin D nl, PMHx: lung adenoCA status post resection and chemo, skin infections chronic, HLD, Bipolar on depakote since 1997, seizures on lamictal since 2019 and vimpat started in May of 2021. POHx: LASIK in 2004 both eyes. Meds: aspirin 81, Vimpat, Depakote, Lipitor, doxycycline, iron, lamictal, metoprolol He currently smokes e-cigs. He currently drinks around 4 shots a day of vodka (in a mixed drink) 02/04/22: Since the last visit 06/18/21, further neurologic workup showed a possible immune mediated cause to the ataxia. Patient was treated with steroids (with reported improvement) but was not able to tolerate them with waldemar and confusion. He was also treated with a 12 week IVIG protocol. This helped but symptoms worsened after cessation of treatment. Had a neurology visit 12/12/2021 plasma exchange was recommended along with rituximab. He had improvement in symptoms with the plasma exchange. Rituximab was not able to be covered under insurance. At neurology follow-up 01/28/2022 the plan was to start mycophenolate - they started this last Thursday. Regarding his vision, he continues to notice intermittent double vision. He thinks this resolved during both the IVIG and plasma exchange. He started to notice double again -December. This can vary in direction. He does not notice oscillopsia. His depth perception is off. He thinks the central vision has been normal. 07/01/22: Since the last visit 02/04/22, the patient continues to notice diplopia - this resolves closing/covering an eye. The double is intermittent and can be horizontal or vertical. It can last up to a day. The visual acuity seems stable in both eyes. The patient saw Dr. Rosas 02/19/2022. At this time additional labs have returned showing a positive EDIN, SSA, and METAL CAN INSPECTOR. 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 The recommendationwas to have 5-7 treatments of plasma exchange (last one was in mid February-2021) and start rituximab (unable to start due to insurance denials). The patient returned to see orthoptics 04/23/2022. At that time motility and alignment in his prismglasses were normal. It was recommended he continue with the current glasses. The option of monocular occlusion was discussed if he is having a bad day with double vision. 04/26/24: Since the last visit 07/01/22, he has been wearing prism in glasses for around 2 months. This is doing well controlling the double horizontally. He can still get a vertical flutter described as a bouncing of the eyes - this tends to happen when he is stressed or tired. Central and peripheral vision has been normal. The patient saw Dr. Rosas 11/19/22. At this time it was thought that his ataxia was approximately stable and he continued to have intermittent double vision. It was thought that his ataxic disorder could have been related to his heavy alcohol use. It was recommended to monitor without any additional immunotherapy at that time. He did continue on lacosamide, valproic acid, and lamotrigine for bipolar disorder and seizure prophylaxis. He saw Dr. Rosas again 02/01/2024. He was overall thought stable and follow-up was recommended in 1 year. documented in this encounter Plan of Treatment Upcoming Encounters Date Type Department Care Team (Late st Contact Info) Description 06/29/2024 8:50 AM COMPOSITION PROFESSOR Appointment Department of Laboratory Medicine in [address] [phone] Fatou Rivas M.D. [address] [place] [phone] 07/04/2024 7:15 AM COMPOSITION PROFESSOR Office Visit Department of Family Medicine, [facility], in [address] [phone] Jagruti Tyler M.D. [address] [place] [phone] Discharge Disposition: Home or Self Care 07/20/2024 9:50 AM COMPOSITION PROFESSOR Appointment Department of Laboratory Medicine in [address] [phone] Fatou Rivas M.D. [address] [place] [phone] documented as of this encounter Visit Diagnoses Diagnosis Nystagmus- Primary Diplopia Age Related Nuclear Cataract Bilateral Ataxia Laser Assisted In Situ Keratomileusis Status Post documented in this encounter Additional Health Concerns Assessment Noted Time PHQ-9 Depression Total Score: 4 02/18/20 23 9:12 AM CDT documented as of this encounter Care Teams Lottery Sales Clerk Relationship Specialty Start Date End Date Jagruti Tyler M.D. [address] [place] [phone] PCP - General Family Medicine 05/11/21 documented as of this encounter
--- OUTSIDE RECORDS SUMMARY | 2024-06-24 08:07 | XMS_ITS | Encounter Summary ---
Author Organization [facility] Address [address] [place] [address] Care Team Providers Care Briar Shop Supervisor Name Role Phone Jagruti Tyler M.D. Primary Care Provider [phone] Encounter Details Date Type Department Care Team (Latest Contact Info) Description 05/05/2024 12:20 PM CDT - 05/05/2024 11:59 PM CDT Hospital Encounter Department of Laboratory Medicine in [address] [phone] Fatou Rivas M.D. [address] [place] [phone] Hyponatremia Discharge Disposition: Home or Self Care Social History Tobacco Use Types Packs/Day Years Used Date Smoking Tobacco: Every Day Cigarettes 1 49.2 Started: 04/10/1975 Passive Smoke Exposure: Past Smokeless Tobacco: Former Quit: 12/01/2018 Comments:Currently vapes jackelin otine on hourly basis Alcohol Use Standard Drinks/Week Comments Not Currently 21 (1 standard drink = 0.6 oz pu re alcohol) [facility] Utilities Answer Date Recorded In the past 12 months has th e [employer], gas, oil, or water [employer] threatened to shut off services in your [...] week 11/19/2022 How often do you attend [facility] or muslim services? More than 4 times per year 11/19/2022 Do you belong to any clubs o r organizations such as sabianist groups, unions, fraternal or athletic groups, or [...] Answer Date Recorded PHQ-2 Score 2 12/21/2023 [facility] - Occupational Stress Questionnaire Answer Date [...] your living situation today? I have a [facility] place to live 12/21/2023 Education Answer Date Recorded What is the highest level of school you have completed or the highest degree you have received? Some college, no degree 02/11/2019 Sex and Gender Information Value Date Recorded Sex Assigned at Male 09/02/2017 9:18 AM HOTBED LEVER OPERATOR Legal Sex Male 7:21 PM HOTBED LEVER OPERATOR Gender Identity Male 09/02/2017 9:18 AM HOTBED LEVER OPERATOR Sexual Orientation Straight 09/02/2017 9: 18 AM HOTBED LEVER OPERATOR documented as of this encounter Medications at [...] st Contact Info) Description 06/29/2024 8:50 AM HOTBED LEVER OPERATOR Appointment Department of Laboratory Medicine in [address] [phone] Fatou Rivas M.D. [address] [place] [phone] 07/04/2024 7:15 AM HOTBED LEVER OPERATOR Office Visit Department of Family Medicine, [facility], in [address] [phone] Jagruti Tyler M.D. [address] [place] [phone] Discharge Disposition: Home or Self Care 07/20/2024 9:50 AM HOTBED LEVER OPERATOR Appointment Department of Laboratory Medicine in [address] [phone] Fatou Rivas M.D. [address] [place] [phone] documented as of this encounter Procedures Procedure Name Priority Date/Time Associated Diagnosis Comments BASIC METABOLIC PANEL, S/P Routine 05/05/2024 12:36 PM CDT Hyponatremia documented in this encounter Results * (ABNORMAL) Basic Metabolic Panel (05/05/2024 12:36 PM CDT) Potassium, P 4.9 3.6 - 5.2 mmol/L 05/05/2024 12:55 PM CDT CNFL Sodium, P 136 135 - 145 mmol/L 05/05/2024 12:55 PM CDT CNFL Chloride, P 99 98 - 107 mmol/L 05/05/2024 12:55 PM CDT CNFL Bicarbonate, P 29 22 - 29 mmol/L 05/05/2024 12:55 PM CDT CNFL Anion Gap, P 8 7 - 15 05/05/2024 12:55 PM CDT CNFL BUN (Blood Urea Nitrogen), P 18 8 - 24 mg/dL 05/05/2024 12:55 PM CDT CNFL Creatinine 0.70(L) 0.74 - 1.35 mg/dL 05/05/2024 12:55 PM CDT CNFL Estimated GFR (eGFR) >90 >=60 mL/min/BSA 05/05/2024 12:55 PM CDT CNFL Comment: Estimated GFR calculated using the 2020 CKD_EPI creatinine equation. Calcium, Total, P 9.3 8.8 - 10.2 mg/dL 05/05/2024 12:55 PM CDT CNFL Glucose, P 96 70 - 140 mg/dL 05/05/2024 12:55 PM CDT CNFL Blood (Blood, Venous) 05/05/2024 12:36 PM CDT 05/05/2024 12:37 PM CDT Fatou Rivas M.D. LAB BLOOD ADD-ON Final Result [facility] [address] [place] [id number], [facility] CNFL [facility] in [address] [address] documented in this encounter Visit Diagnoses Diagnosis Hyponatremia documented in this encounter Additional Health Concerns Assessment Noted Time PHQ-9 Depression Total Score: 4 02/18/20 23 9:12 AM CDT documented as of this encounter Care Teams Briar Shop Supervisor Relationship Specialty Start Date End Date Jagruti Tyler M.D. [address] [place] [phone] PCP - General Family Medicine 05/11/21 documented as of this encounter
--- OUTSIDE RECORDS SUMMARY | 2024-06-24 08:07 | XMS_ITS | Encounter Summary ---
Author Organization [facility] Address [address] [place] [id number] Care Team Providers Care Retail Operations Manager Name Role Phone Jagruti Tyler M.D. Primary Care Provider [phone] Encounter Details Date Type Department Care Team (Latest Contact Info) Description 06/01/2024 9:47 AM CDT - 06/01/2024 11:59 PM CDT Hospital Encounter Department of Laboratory Medicine in [address] [phone] Fatou Rivas M.D. [address] [place] [phone] Hyponatremia Discharge Disposition: Home or Self Care Social History Tobacco Use Types Packs/Day Years Used Date Smoking Tobacco: Every Day Cigarettes 1 49.2 Started: 04/10/1975 Passive Smoke Exposure: Past Smokeless Tobacco: Former Quit: 12/01/2018 Comments:Currently vapes jackelin otine on hourly basis Alcohol Use Standard Drinks/Week Comments Not Currently 21 (1 standard drink = 0.6 oz pu re alcohol) [facility] Utilities Answer Date Recorded In the past 12 months has th e [employer], gas, oil, or water [employer] threatened to shut off services in your [...] week 11/19/2022 How often do you attend [facility] or yazidi services? More than 4 times per year 11/19/2022 Do you belong to any clubs o r organizations such as worship groups, unions, fraternal or athletic groups, or [...] Answer Date Recorded PHQ-2 Score 2 12/21/2023 [facility] Health - Occupational Stress Questionnaire Answer Date [...] your living situation today? I have a [facility] place to live 12/21/2023 Education Answer Date Recorded What is the highest level of school you have completed or the highest degree you have received? Some college, no degree 02/11/2019 Sex and Gender Information Value Date Recorded Sex Assigned at Male 09/02/2017 9:18 AM INTERNSHIP COORDINATOR Legal Sex Male 7:21 PM INTERNSHIP COORDINATOR Gender Identity Male 09/02/2017 9:18 AM INTERNSHIP COORDINATOR Sexual Orientation Straight 09/02/2017 9: 18 AM INTERNSHIP COORDINATOR documented as of this encounter Medications at [...] FOR ANXIETY OR SEIZURES(AMISHA) 28 tablet 02/25/2024 divalproex (Depakote ER) 250 mg 24 hr tabletIndications:F ocal Epilepsy Symptomatic Intractable Without Status Epilepticus (HCC) TAKE 1 TABLET(250 MG) BY MOUTH EVERY EVENING 90 tablet 3 05/24/2024 fluticasone propionate (FLONASE) 50 mcg/actuation nasal sprayIndications:Rh [...] 90 tablet 3 12/22/2023 divalproex (DEPAKOTE ER) 500 mg 24 hr [...] st Contact Info) Description 06/29/2024 8:50 AM INTERNSHIP COORDINATOR Appointment Department of Laboratory Medicine in [address] [phone] Fatou Rivas M.D. [address] [place] [phone] 07/04/2024 7:15 AM INTERNSHIP COORDINATOR Office Visit Department of Family Medicine, [facility], in [address] [phone] Jagruti Tyler M.D. [address] [place] [phone] Discharge Disposition: Home or Self Care 07/20/2024 9:50 AM INTERNSHIP COORDINATOR Appointment Department of Laboratory Medicine in [address] [place] [phone] Fatou Rivas M.D. [address] [place] [phone] documented as of this encounter Procedures Procedure Name Priority Date/Time Associated Diagnosis Comments BASIC METABOLIC PANEL, S/P Routine 06/01/2024 10:00 AM CDT Hyponatremia documented in this encounter Results * (ABNORMAL) Basic Metabolic Panel (06/01/2024 10:00 AM CDT) Potassium, P 4.7 3.6 - 5.2 mmol/L [...] Rivas M.D. LAB BLOOD ADD-ON Final Result [facility] [address] [place] [address], [facility] CNFL [facility] in [address] [address] documented in this encounter Visit Diagnoses Diagnosis Hyponatremia documented in this encounter Additional Health Concerns Assessment Noted Time PHQ-9 Depression Total Score: 4 02/18/20 23 9:12 AM CDT documented as of this encounter Care Teams Retail Operations Manager Relationship Specialty Start Date End Date Jagruti Tyler M.D. [address] [place] [phone] PCP - General Family Medicine 05/11/21 documented as of this encounter
--- OUTSIDE RECORDS SUMMARY | 2024-06-24 08:07 | XMS_ITS | Encounter Summary ---
Author Organization [facility] Address [address] [place] [address] Care Team Providers Care Dental Scheduler Name Role Phone Jagruti Tyler M.D. Primary Care Provider [phone] Reason for Visit * Reason Comments Med Refill Encounter Details Date Type Department Care Team (Late st Contact Info) Description 2024 Refill Department of Family Medicine, [facility], in [address] [phone] Jagruti Tyler M.D. [address] [place] [phone] Med Refill Social History Tobacco Use Types Packs/Day Years Used Date Smoking Tobacco: Every Day Cigarettes 1 49.2 Started: 04/10/1975 Passive Smoke Exposure: Past Smokeless Tobacco: Former Quit: 12/01/2018 Comments:Currently vapes jackelin otine on hourly basis Alcohol Use Standard Drinks/Week Comments Not Currently 21 (1 standard drink = 0.6 oz pu re alcohol) [facility] Utilities Answer Date Recorded In the past 12 months has e [employer], gas, oil, or water [employer] threatened to shut off services in your [...] How often do you attend chur or yazdanism services? More than 4 times per year 11/19/2022 Do you belong to any clubs o r organizations such as adventist groups, unions, fraternal or athletic groups, or [...] Score 2 12/21/2023 [facility] - Occupational Stress [...] your living situation today? I have a [facility] place to live 12/21/2023 Education Answer Date Recorded What is the highest level of school you have completed or the highest degree you have received? Some college, no degree 02/11/2019 Sex and Gender Information Value Date Recorded Sex Assigned at Male 09/02/2017 9:18 AM REACTOR TECHNICIAN Legal Sex Male 7:21 PM REACTOR TECHNICIAN Gender Identity Male 09/02/2017 9:18 AM REACTOR TECHNICIAN Sexual Orientation Straight 09/02/2017 9: 18 AM REACTOR TECHNICIAN documented as of this encounter Miscellaneous Notes * Telephone Encounter - Jagruti Tyler M.D. - 06/20/2024 6:52 PM REACTOR TECHNICIAN Prescription approved. TOR TECHNICIAN documented in this encounter Plan of Treatment Upcoming Encounters Date Type Department Care Team (Late st Contact Info) Description 06/29/2024 8:50 AM REACTOR TECHNICIAN Appointment Department of Laboratory Medicine in [address] [phone] Fatou Rivas M.D. [address] [place] [phone] 07/04/2024 7:15 AM REACTOR TECHNICIAN Office Visit Department of Family Medicine, [facility], in [address] [phone] Jagruti Tyler M.D. [address] [place] [phone] Discharge Disposition: Home or Self Care 07/20/2024 9:50 AM REACTOR TECHNICIAN Appointment Department of Laboratory Medicine in [address] [phone] Fatou Rivas M.D. 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 [address] [place] [phone] PCP - General Family Medicine 05/11/21 documented as of this encounter
--- OUTSIDE RECORDS SUMMARY | 2024-06-24 08:07 | XMS_ITS | Referral Summary ---
Author Organization [facility] Address [address] [place] [address] Care Team Providers Care Insecticide Mixer Name Role Phone Jagruti Tyler M.D. Primary Care Provider [phone] [phone] Source Comments Patient records contain information from all sites at [facility]. For routine questions regarding patient records, call [phone] during business hours, M-F 8:00 AM - 5:00 PM Central Time. Record requests for emergency care only can be directed to [phone] at any time.[facility] Encounters Date Type Department Care Team Description 06/22/2024 Refill Department of Family Medicine, [facility], in [address] [phone] Jagruti Tyler M.D. Med Refill 2024 Refill Department of Family Medicine, [facility], in [address] [phone] Jagruti Tyler M.D. Med Refill 06/01/2024 9:47 AM CDT - 06/01/2024 11:59 PM CDT Hospital Encounter Department of Laboratory Medicine in [address] [phone] Fatou Rivas M.D. Hyponatremia Discharge Disposition: Home or Self Care 05/22/2024 Refill Department of Family Medicine, [facility], in [address] [phone] Jagruti Tyler M.D. Med Refill 05/18/2024 9:50 AM CDT - 05/18/2024 11:59 PM CDT Hospital Encounter Department of Laboratory Medicine in [address] [phone] Fatou Rivas M.D. Hyponatremia Discharge Disposition: Home or Self Care 05/05/2024 12:20 PM CDT - 05/05/2024 11:59 PM CDT Hospital Encounter Department of Laboratory Medicine in [address] [phone] Fatou Rivas M.D. Hyponatremia Discharge Disposition: Home or Self Care 04/26/2024 1:15 PM CDT Office Visit Department of Ophthalmology in [address] [phone] Cody Gonzalez M.D. Nystagmus (Primary Dx); Diplopia; Age Related Nuclear Cataract Bilateral; Ataxia; Laser Assisted In Situ Keratomileusis Status Post 04/25/2024 1:30 PM CDT Clinical Communication Virtual Review in [address] [phone] Pre-visit Intake 04/20/2024 9:50 AM CDT - 04/20/2024 11:59 PM CDT Hospital Encounter Department of Laboratory Medicine in [address] [phone] Fatou Rivas M.D. Hyponatremia Discharge Disposition: Home or Self Care 04/06/2024 9:49 AM CDT - 04/06/2024 11:59 PM CDT Hospital Encounter Department of Laboratory Medicine in [address] [phone] Fatou Rivas M.D. Hyponatremia Discharge Disposition: Home or Self Care from Last 3 Months Allergies Active Allergy Reactions Criticality Noted Date [...] mg total) by mouth daily. 90 tablet 024 Active lamoTRIgine (LaMICtaL) 25 mg tabletIndications :Other Seizures (HCC) Take 2 tablets (50 mg total) by mouth 2 (two) times a day. 360 tablet 3 024 Active calcium carbonate-vitamin D3 (Oysco 500/D) 1,250 mg (500 mg calcium)-5 mcg (200 Unit) per tablet Take 2 tablets by mouth daily. 180 tablet 024 Active thiamine (VITAMIN B1) 100 mg tablet Take 1 tablet (100 mg total) by mouth daily. 90 tablet 024 Active levothyroxine (SYNTHROID, LEVOTHROID) 75 mcg tablet Take 1 tablet (75 mcg total) by mouth daily. 90 tablet 024 Active fluticasone propionate (FLONASE) 50 mcg/actuation nasal sprayIndications: Rhinitis Chronic Administer 2 sprays into each nostril daily. 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 06/13/2016 Alcohol [...] (03/09/2019): Added automatically from request for surgery [id number] Nephrolithiasis 02/28/2019 09/13/2019 Overview (02/28/2019): Added automatically from request for surgery [id number] Alcohol Abuse With Intoxication Unspecified 11/25/2018 11/25/2018 [...] 07/21/2018 Overview (12/30/2016): Coronary Artery Disease (CAD) [place] Vessel Angina Crescendo 06/12/2016 07/27/2017 Overview (12/30/2016): Angina Crescendo Immunizations Name Administration Dates Next Due HepA [...] quad (FLUZONE/FLUARIX) (6 months and older)(PF) 05/19/2021 Social History Tobacco Use Types Packs/Day Years Used Date Smoking Tobacco: Every Day Cigarettes 1 49.2 Started: 04/10/1975 Passive Smoke Exposure: Past Smokeless Tobacco: Former Quit: 12/01/2018 Tobacco Cessation:Ready to Q uit: Not Asked; Counseling Given: Not Answered Comments:Currently vapes nicotine on hourly basis Alcohol Use Standard Drinks/Week Comments Not Currently 21 (1 standard drink = 0.6 oz pu re alcohol) [facility] [employer] Answer Date Recorded In the past 12 months has e [employer] gas, oil, or water [employer] threatened to shut off services in your [...] How often do you attend chur or church services? More than 4 times per year 11/19/2022 Do you belong to any clubs o r organizations such as gnosticism groups, unions, fraternal or athletic groups, or [...] Answer Date Recorded PHQ-2 Score 2 12/21/2023 [facility] - Occupational Stress Questionnaire Answer Date Recorded [...] your living situation today? I have a [facility] place to live 12/21/2023 Education Answer Date Recorded What is the highest level of school you have completed or the highest degree you have received? Some college, no degree 02/11/2019 Sex and Gender Information Value Date Recorded Sex Assigned at Male 09/02/2017 9:18 AM TONE ARTIST APPRENTICE Legal Sex Male 7:21 PM TONE ARTIST APPRENTICE Gender Identity Male 09/02/2017 9:18 AM TONE ARTIST APPRENTICE Sexual Orientation Straight 09/02/2017 9: 18 AM TONE ARTIST APPRENTICE Last Filed Vital Signs Vital Sign Reading [...] st Contact Info) Description 06/29/2024 8:50 AM TONE ARTIST APPRENTICE Appointment Department of Laboratory Medicine in [address] [phone] Fatou Rivas M.D. [address] [place] [phone] 07/04/2024 7:15 AM TONE ARTIST APPRENTICE Office Visit Department of Family Medicine, [facility], in [address] [phone] Jagruti Tyler M.D. [address] [place] [phone] Discharge Disposition: Home or Self Care 07/20/2024 9:50 AM TONE ARTIST APPRENTICE Appointment Department of Laboratory Medicine in [address] [phone] Fatou Rivas M.D. [address] [place] [phone] Medical Devices Implanted Type Area Tobacco Warehouse Manager Device Identifier Shelf Expiration Date Model / Serial / Lot Premier 3.5 X 16 - [id number] Implanted:Qty: 1 on 06/13/2016 Cardiac Stent [employer] Description:Device Manufactu rer - [employer]. Device Status Text - [id number]. Stent Other Stent Other Heart Stnt Uret Inl 7fx26 - [id number] Implanted:Qty: 1 on 04/15/2019 by Jamin Brenner M.D. at [facility] Ureteral Stent Left: Ureter [employer]ard [id number] 01/19/2023 [id number] / / [id number] Explanted Type Area Tobacco Warehouse Manager Device Identifier Shelf Expiration Date Model / Serial / Lot Stnt Uret Inl 7fx26 - [id number] Implanted:Qty : 1 on 03/01/2019 by Ra Perez M.D., Ph.D. at [facility] Explanted:Qty : 1 on 04/15/2019 by Pattie Jaquez M.D. 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 If available, original interpretation can be found on the Media Tab in Chart Review, in Document Viewer, as an image in QREADS or as an Addendum. If a re-interpretation or overread is required please follow defined workflow.?? us Provider Not In System IMG NM PROCEDURES Final R esult IIMS NA * (ABNORMAL) Basic Metabolic Panel (06/01/2024 [...] Rivas M.D. LAB BLOOD ADD-ON Final Result [facility] [address] [place] [address], [facility] CNFL [facility] in [address] [address] * Lipid Panel (12/18/2023 8:02 AM CDT) [...] M.D. LAB BLOOD ADD-ON Final Resu lt [address] [address], [address] [address] * (ABNORMAL) S-TSH (Thyroid-Stimulating Hormone - Sensitive) (12/18/2023 8:02 AM CDT) TSH, Sensitive 4.5(H) 0.3 - 4.2 mIU/L 12/18/2023 8:34 AM CDT CNFL Blood (Blood, Venous) 12/18/2023 8:02 AM CDT 12/18/2023 8:04 AM CDT us Jagruti Tyler M.D. LAB BLOOD ADD-ON Final Resu lt [address] [address], [address] [address] * BMD Bone Density Spine Hips (03/06/2023 [...] Bone Mineral Density (BMD) analysis performed on cube19 with serial number [id number]. ? FINDINGS: Left Hip: Femur Neck: BMD [...] including images and graphs, is available in [employer]. In the absence of other causes of [...] image stored in the BMD study in QREADS), the calculated ten year probability of [...] Bone Mineral Density (BMD) analysis performed on cube19with serial number [id number]. FINDINGS: Left Hip: Femur Neck: BMD = [...] (Osteopenia) AP Spine (region: L1-L2) us Jagruti Tyler M.D. IMG DXA PROCEDURES Final Re sult * US [...] LI-RADS is supported and endorsed by the [employer]. More information can be found on the following link [email or web address].org/Clinical-[email or web address] S-Ult [email or web address]-v2017 Procedure Note Marissa Pop M.D. [...] LI-RADS is supported and endorsed by the [employer]. More information can be found on the following link [email or web address].org/Clinical-Resources/[email or web address]/[email or web address]/LI-[email or web address] S-Ult rasound-v2017 IMPRESSION: 1. Normal sonographic appearance of the liver. No focal hepaticobservation. Ultrasound LI- RADS 1B. us Jagruti Tyler M.D. IMG US PROCEDURES Final Res ult * COLONOSCOPY (06/03/2022 11:18 AM CDT) Narrative Procedure Note Chris Motley M.D. - 06/03/2022 11:18 AM CDT [facility] Patient Name: Salvatore Mahmood Procedure Date: [...] the bowel preparation was evaluatedusing the BBPS (Stryker Bowel Preparation Scale) with scores of: Right [...] - 06/03/2022 10:45 AM CDT [facility] Patient Name: Salvatore Mahmood Procedure Date: [...] 0 Note Initiated On: 06/03/2022 10:45 AM Jagruti Tyler M.D. GI PROCEDURE ORDERABLES Fin al Result * HCV Ab Scrn w/Reflex to HCV PCR, Serum (08/08/2021 9:36 AM TONE ARTIST APPRENTICE) HCV Ab Screen, S Negative Negative 08/08/2021 1:53 PM TONE ARTIST APPRENTICE [facility] Comment:Omchae-er-prennf rat io is <1.00. Blood (Blood, Venous) 08/08/2021 9:36 AM TONE ARTIST APPRENTICE 08/08/2021 12:25 PM TONE ARTIST APPRENTICE Kathe Tobias M.D. LAB MICROBIOLOGY - BLOOD ORDERABLES Final Result [facility] [address] [place] [address] [facility] Dept. of Laboratory Medicine and Pathology [address] [place] [address] from Last 3 Months or Most Recently Relevant to Health Maintenance Insurance [facility] Advance Directives For more information, please contact: [phone] * Full Code (Latest Code Status on [...] Answer Comments Full Code: Discussed Care Teams Insecticide Mixer Relationship Specialty Start Date End Date Jagruti Tyler M.D. [id number] [address] [place] [phone] PCP - General Family Medicine 05/11/21
--- OUTSIDE RECORDS SUMMARY | 2024-06-24 08:07 | XMS_ITS ---
Author Organization [facility] Address [address] [place] [address] Care Team Providers Care Mess Cook Name Role Phone Jagruti Tyler M.D. Primary Care Provider [phone] [phone] Active Problems * This document contains information received from the source organization and may not represent a complete record from that organization. Problem Noted Date Diagnosed Date Pancytopenia 01/04/2024 [...] (01/31/2022): Added automatically from request for surgery [id number] Acute Disseminated Encephali tis And Encephalomyelitis Unspecified [...] Adenocarcinoma NOS Atherosclerotic Heart Diseas e Of [place] Coronary Artery Without Angina Pectoris 06/13/2016 Alcohol Moderate Or Severe U se Disorder (Dependence) Uncomplicated 05/07/2016 Nicotine Dependence Cigarettes 05/07/2016 Hypertensive Heart Disease Without Heart Failure 04/29/2016 Overview (12/30/2016): Hypertension (HTN) NOS Polyp Colon Personal History, Unspecified Type 0 08/29/2015 Cannabis Moderate Or Severe Use Disorder (Dependence) Uncomplicated 10/06/2010 Current Oncology Plans No current plan information found. Past Plans Radiation Treatments * No radiation treatments are documented for this patient in [facility]. Treatments may have been administered in another system. 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
--- OUTSIDE RECORDS SUMMARY | 2024-06-24 08:07 | XMS_ITS ---
Author Organization [facility] Address [address] [place] [address] Care Team Providers Care Chassis Wirer Name Role Phone Unavailable Unavailable Unavailable Surgery Details Not on file Complications Check Surgery Details section. Procedure Estimated Blood Loss Check Surgery Details section. Procedure Findings Check Surgery Details section. Procedure Specimens Taken Check Surgery Details section.
--- OUTSIDE RECORDS SUMMARY | 2024-06-24 08:07 | XMS_ITS | Encounter Summary ---
Author Organization [facility] Address [address] [place] [address] Care Team Providers Care Associate Professor Of Library Science Name Role Phone Jagruti Tyler M.D. Primary Care Provider [phone] [phone] Encounter Details Date Type Department Care Team (Latest Contact Info) Description 04/20/2024 9:50 AM CDT - 04/20/2024 11:59 PM CDT Hospital Encounter Department of Laboratory Medicine in [address] [phone] Fatuo Rivas M.D. [address] [place] [phone] Hyponatremia Discharge Disposition: Home or Self Care Social History Tobacco Use Types Packs/Day Years Used Date Smoking Tobacco: Every Day Cigarettes 1 49.2 Started: 04/10/1975 Passive Smoke Exposure: Past Smokeless Tobacco: Former Quit: 12/01/2018 Comments:Currently vapes jackelin otine on hourly basis Alcohol Use Standard Drinks/Week Comments Not Currently 21 (1 standard drink = 0.6 oz pu re alcohol) [facility] Utilities Answer Date Recorded In the past 12 months has th e [employer], gas, oil, or water [employer] threatened to shut off services in your [...] week 11/19/2022 How often do you attend [facility] or pentecostal services? More than 4 times per year 11/19/2022 Do you belong to any clubs o r organizations such as scientology groups, unions, fraternal or athletic groups, or [...] Answer Date Recorded PHQ-2 Score 2 12/21/2023 [facility] - Occupational Stress Questionnaire Answer Date [...] your living situation today? I have a [facility] place to live 12/21/2023 Education Answer Date Recorded What is the highest level of school you have completed or the highest degree you have received? Some college, no degree 02/11/2019 Sex and Gender Information Value Date Recorded Sex Assigned at Male 09/02/2017 9:18 AM ADULT CROSSING GUARD Legal Sex Male 7:21 PM ADULT CROSSING GUARD Gender Identity Male 09/02/2017 9:18 AM ADULT CROSSING GUARD Sexual Orientation Straight 09/02/2017 9: 18 AM ADULT CROSSING GUARD documented as of this encounter Medications at [...] st Contact Info) Description 06/29/2024 8:50 AM ADULT CROSSING GUARD Appointment Department of Laboratory Medicine in [address] [phone] Fatou Rivas M.D. [address] [place] [phone] 07/04/2024 7:15 AM ADULT CROSSING GUARD Office Visit Department of Family Medicine, [facility], in [address] [phone] Jagruti Tyler M.D. [address] [place] [phone] Discharge Disposition: Home or Self Care 07/20/2024 9:50 AM ADULT CROSSING GUARD Appointment Department of Laboratory Medicine in [address] [phone] Fatou Rivas M.D. [address] [place] [phone] documented as of this encounter Procedures Procedure Name Priority Date/Time Associated Diagnosis Comments BASIC METABOLIC PANEL, S/P Routine 04/20/2024 10:11 AM CDT Hyponatremia documented in this encounter Results * (ABNORMAL) Basic Metabolic Panel (04/20/2024 10:11 AM CDT) Potassium, P 4.6 3.6 - 5.2 mmol/L 04/20/2024 10:35 AM CDT CNFL Sodium, P 142 135 - 145 mmol/L 04/20/2024 10:35 AM CDT CNFL Chloride, P 106 98 - 107 mmol/L 04/20/2024 10:35 AM CDT CNFL Bicarbonate, P 28 22 - 29 mmol/L 04/20/2024 10:35 AM CDT CNFL Anion Gap, P 8 7 - 15 04/20/2024 10:35 AM CDT CNFL BUN (Blood Urea Nitrogen), P 18 8 - 24 mg/dL 04/20/2024 10:35 AM CDT CNFL Creatinine 0.68(L) 0.74 - 1.35 mg/dL 04/20/2024 10:35 AM CDT CNFL Estimated GFR (eGFR) >90 >=60 mL/min/BSA 04/20/2024 10:35 AM CDT CNFL Comment: Estimated GFR calculated using the 2020 CKD_EPI creatinine equation. Calcium, Total, P 9.4 8.8 - 10.2 mg/dL 04/20/2024 10:35 AM CDT CNFL Glucose, P 104 70 - 140 mg/dL 04/20/2024 10:35 AM CDT CNFL Blood (Blood, Venous) 04/20/2024 10:11 AM CDT 04/20/2024 10:13 AM CDT Fatou Rivas M.D. LAB BLOOD ADD-ON Final Result [facility] [address] [place] [id number], [facility] CNFL [facility] in [address] [address] documented in this encounter Visit Diagnoses Diagnosis Hyponatremia documented in this encounter Additional Health Concerns Assessment Noted Time PHQ-9 Depression Total Score: 4 02/18/20 23 9:12 AM CDT documented as of this encounter Care Teams Associate Professor Of Library Science Relationship Specialty Start Date End Date Jagruti Tyler M.D. [address] [place] [phone] PCP - General Family Medicine 05/11/21 documented as of this encounter
--- OUTSIDE RECORDS SUMMARY | 2024-06-24 08:08 | XMS_ITS | Encounter Summary ---
Author Organization [facility] Address [address] [place] [address] Care Team Providers Care Tailing Hand Name Role Phone Jagruti Tyler M.D. Primary Care Provider [phone] Reason for Referral * Outpatient (Routine) - Authorized Specialty Diagnoses / Procedures Referred By Livan reyes Referred To Contact Hematology Oncology Diagnoses Pancytopenia (HCC) Lymphocytosis Atypical Hyponatremia Fatou Rivas M.D. [address] [place] [phone] Phone: tel: fax: Margarita Goss M.D. [address] [place] [address] Phone: tel: fax: Referral ID Status Reason Start Date Expiration Date V isits Requested Visits Authorized [id number] Authorized 03/22/2024 09/21/2025 1 1 Scheduling Instructions Pt was initially seen by Dr. Goss, so if she can begin seeing him again that would be ideal. If not, another member of the [facility] group will be fine. he gets his labs drawn in [place]. Return a day or so afterward. Please see comments on the return scheduling. Reason for Visit * Outpatient (Routine) - Closed Specialty Diagnoses / Procedures Referred By Livan t Referred To Contact Hematology Oncology Diagnoses Pancytopenia (HCC) Lymphocytosis Atypical Hyponatremia Fatou Rivas M.D. [address] [place] [address] Phone: tel: fax: [facility] Referral ID Status Reason Start Date Expiration Date Visits Re quested Visits Authorized [id number] Closed 01/13/2024 07/14/2025 1 1 Encounter Details Date Type Department Care Team (Latest Contact Info) Description 03/22/2024 3:30 PM CDT Virtual Visit Division of Hematology in [place], [place] [address] [place] [phone] Fatou Rivas M.D. [address] [place] [phone] Pancytopenia (HCC); Lymphocytosis Atypical; Hyponatremia Social History Tobacco Use Types Packs/Day Years Used Date Smoking Tobacco: Every Day Cigarettes 1 49.2 Started: 04/10/1975 Passive Smoke Exposure: Past Smokeless Tobacco: Former Quit: 12/01/2018 Comments:Currently vapes jackelin otine on hourly basis Alcohol Use Standard Drinks/Week Comments Not Currently 21 (1 standard drink = 0.6 oz pu re alcohol) [facility] Utilities Answer Date Recorded In the past 12 months has [facility] [email or web address], gas, oil, or water [employer] threatened to shut off services in your [...] 11/19/2022 How often do you attend chur ch or oriental orthodox services? More than 4 times per year 11/19/2022 Do you belong to any clubs o r organizations such as evangelical groups, unions, fraternal or athletic groups, or [...] Answer Date Recorded PHQ-2 Score 2 12/21/2023 [facility] - Occupational Stress Questionnaire Answer Date Recorded [...] your living situation today? I have a [facility] place to live 12/21/2023 Education Answer Date Recorded What is the highest level of school you have completed or the highest degree you have received? Some college, no degree 02/11/2019 Sex and Gender Information Value Date Recorded Sex Assigned at Male 09/02/2017 9:18 AM HEEL SLICKER Legal Sex Male 7:21 PM HEEL SLICKER Gender Identity Male 09/02/2017 9:18 AM HEEL SLICKER Sexual Orientation Straight 09/02/2017 9: 18 AM HEEL SLICKER documented as of this encounter Progress Notes * Fatou Rivas M.D. - 03/22/2024 3:30 PM CDT March 22, 2024 Last visit: January 13, 2024 Purpose of Visit: Follow up for macrocytic anemia, pancytopenia and possible alcoholic liver disease. He is a patient of Dr. Goss. I am seeing him in her absence. This visit was conducted by telephone. History of the Present Illness: Dr. Goss saw the patient initially in consultation on 10/15/2021 for evaluation of macrocytic anemia, pancytopenia and concern for alcoholic liver disease Hemoglobin 10.3 MCV 104. Platelets 146 WBCs 3.4 ANC of 1360. There was no evidence of reticulocytosis. B12 folate and iron studies were all satisfactory and the Marcio test was negative. Liver function studies including AST, ALT and total and direct bilirubin were all normal. C reactive protein wasincreased. Iron studies and ferritin were all within normal limits. EXAM: US ABDOMEN COMPLETE COMPARISON: CT of the abdomen and pelvis without IV contrast 05/14/2021. IMPRESSION: 1. The liver appears normal. Ultrasound LI-RADS 1B. 2. The spleen measures at the upper normal in size at 12.7 cm in length. 08/29/2021 Hgb 11.1 MCV of 100. WBC 4.0 with a normal ANC platelets 135. The sedimentation rate andC reactive protein were markedly elevated. EDIN 3.9. 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 Based on the workup the patient appears to have an autoimmune connective tissue disorder which likely causing for his inflammatory markers to be so markedly elevated. This may explain his anemia and the polyclonal hypergammaglobulinemia. He received IVIG which could have impacted some of the tests 06/29/2021 He has met with neurology. He had had resolution of encephalopathic symptoms. His ataxia and incoordination were improved. He was walking independently. Both he and his were very pleased with his progress. He has not had any discernible side effects. He also had some positivity on connective tissue cascade, which could be attributable to hypergammaglobulinemia related to IVIG. Rheumatology had nothing additionally to advise. Dr. Rosas recommended to now observe him off IVIG treatment - He was hospitalized from 02/24/22 to 03/03/22 for mental status changes, dismissed with plan to continue PLEX. He received a total of 7 PLEXs. - He was again admitted from 03/05/22 to 03/08/22 for SVT. 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 He was placed on apixaban for the SVT. - 03/07/22 Na 140 K 4.4 Cr 0.74 CRP 51.1 03/17/22 Hgb 7.9 MCV 98.9 WBC 4.3 Plts 110 ANC 2.72 ALC 0.89 AMC 0.66 Fe 26 Ferritin 397 TIBC 151 17% Saturation - He received 1 unit RBCs on 03/05/22 04/04/22 BMBx FINAL DIAGNOSIS Peripheral blood, bone marrow aspirate and biopsy, iliac crest: 1. Hypercellular bone marrow (60%) with morphologically unremarkable trilineage hematopoiesis. 2. No morphologic or immunophenotypic features of a myeloid, lymphoid, plasma cell or metastatic neoplasm. 3. Macrocytic anemia and thrombocytopenia, with no specific morphologic abnormalities. Plasma cells 4%, without monotypia. Chromes 46 XY NGSHM without mutations. 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 Stomach biopsy with reactive gastropathy with erosion. No H. Pylori. 10/13/22 Hgb 13.1 MCV 98.0 WBC 4.9 ANC 2.40 ALC 1.65 AMC 0.82 Reactive lymphocytes present. [id number] Ferritin 55 11/06/22: He reported he was regressing in terms of his stability. But otherwise offered no new complaints. He was not able to get approval for rituximab for the autoimmune cerebritis, and he may needto resume PLEX. A 3rd written appeal has been submitted. I shared that at this point Dr. Rosas will need to demand a peer to peer Zoom to discuss directly with a medical records assistant. PLEX is going to be more expensive than rituximab and carries more potential complications. There is no legitimate medical justification to deny rituximab, but as long as they can keep it at the paper level, the lower level triage crew, in their ignorance, but according to policy, will continue to deny hoping patients and their nurses medical assistants phlebotomists will give up. Putting the medical records assistant on the spot to justify the denial, medically (and financially), often results in approval. 02/18/23 CT Chest: IMPRESSION: 1. Prior postoperative changes involving the right lower lobe and right chest wall without evidenceof local recurrence. 2. Resolution of previously seen patchy consolidative and groundglass opacities throughout both lungs compatible with an infectious/inflammatory etiology. 3. Slight decrease in size of a small left pleural effusion. 4. A small amount of groundglass in the anterior right lower lung and clustered micro-nodularity inthe posterior right lower lobe is likely infectious/inflammatory. 02/20/23 Hgb 14.0 MCV 97.2 WBC 6.0 Plts 171 Reactive/atypical lymphs still noted. Ferritin 108. 02/25/23: He states he is feeling well. It appears that Dr. Rosas came to conclusion that given thepatient's clinical stability, the rituximab may not be helpful, and gave up on the appeals. Fortunately, he is doing OK, and did not require PLEX again. 01/13/24 He reports that he is having issues with poor stability and falling. He is also concerned about his drop in Na from 140 to 128 over a week or so. This correlates with the onset of the balance issues. He is planning to drink G2 + 8 NaCl tablets. He hasn't been drinkingBoost + like he was, which also has Na in it. His seroquel was increased. In the past he had severe hyponatremia that led to seizures. I arranged for him to be seen by nephrology. 03/09/[address] Ramu Marrero. She encouraged him to stop alcohol, limit fluid to 55 ounces a day, increase his protein intake in the form of meat, chicken, fish, eggs, yogurt, cheese, etc. and continue 10 NaCl tablets daily. 03/22/24 He has had no further falls. He has had prisms placed in his glasses which has helped the ataxia. He will have labs tomorrow. Latest Reference Range & Units 03/14/24 09:02 Sodium, P 135 - 145 mmol/L 132 (L) Potassium, P 3.6 - 5.2 mmol/L 4.9 Chloride, P 98 - 107 mmol/L 96 (L) Bicarbonate, P 22 - 29 mmol/L 29 Anion Gap, P 7 - 15 7 BUN (Blood Urea Nitrogen), P 8 - 24 mg/dL 18 Creatinine 0.74 - 1.35 mg/dL 0.68 (L) Estimated GFR (eGFR) >=60 mL/min/BSA >90 Calcium, Total, P 8.8 - 10.2 mg/dL 9.3 Glucose, P 70 - 140 mg/dL 102 Osmolality, S 276 - 306 mOsm/kg 294 (L): Data is abnormally low PHYSICAL EXAMINATION As this was a telephone visit, I was unable to perform a direct physical examination. ASSESSMENT/PLAN #1 Pancytopenia His counts have essentially normalized. He is back on iron supplementation. #2 Autoimmune disease with cerebritis #3 Bipolar disorder #4 Liver disease related to alcohol use He has been abstinent. #5 Hypertension #6 Seizure disorder No seizures since 2018 #7 CAD, s/p stent to LAD and diagonal bifurcation in 2015 #8 Lung cancer s/p resection and chemotherapy #9 SVT The apixaban was discontinued due to the GI bleeding. He is taking ASA 81 mg/D now. #10 Adenomatous colon polyps, 2021 He will need a f/u colonoscopy in 2026. #11 Smudge cells and reactive lymphs on smear. Repeat T cell receptor gene rearrangements from 03/07/24 were fully negative. #12 Recent sudden drop in Sodium. With the changes Dr. Shalom Marrero recommended his Na has been improving. He has had no further falls. I believe we can return to a return in 4-6 months. I shared that I will be retiring in early 2024 and I will ask a colleague in the [facility] group to continue to follow up with him. They were agreeable with this plan. Electronically signed by: Fatou Rivas M.D. 03/22/24 11:43 AM CDT documented in this encounter Plan of Treatment Upcoming Encounters Date Type Department Care Team (Late st Contact Info) Description 06/29/2024 8:50 AM HEEL SLICKER Appointment Department of Laboratory Medicine in [address] [phone] Fatou Rivas M.D. [address] [place] [address] 07/04/2024 7:15 AM HEEL SLICKER Office Visit Department of Family Medicine, [facility], in [address] [phone] Jagruti Tyler M.D. [address] [place] [phone] Discharge Disposition: Home or Self Care 07/20/2024 9:50 AM HEEL SLICKER Appointment Department of Laboratory Medicine in [address] [phone] Fatou Rivas M.D. [address] [place] [address] Scheduled Orders Name Type Priority Associated Diagnoses Orde r Schedule Basic Metabolic Panel Lab Routine Pancytopenia (HCC) Lymphocytosis Atypical Hyponatremia Expected: 09/22/2024, Expires: 06/22/2025 CBC with Differential, Blood Lab Routine Pancytopenia (HCC) Lymphocytosis Atypical Hyponatremia Expected: 09/22/2024, Expires: 06/22/2025 Scheduled Referrals Name Type Priority Associated Diagnoses Order Schedule Hematology office visit (clinic) [facility]; General; General Outpatient Referral Routine Pancytopenia (HCC) Lymphocytosis Atypical Hyponatremia Expected: 09/22/2024, Expires: 06/22/2025 documented as of this encounter Visit Diagnoses Diagnosis Pancytopenia (HCC) Lymphocytosis Atypical Hyponatremia documented in this encounter Additional Health Concerns Assessment Noted Time PHQ-9 Depression Total Score: 4 02/18/20 23 9:12 AM CDT documented as of this encounter Care Teams Tailing Hand Relationship Specialty Start Date End Date Jagruti Tyler M.D. [address] [place] [phone] PCP - General Family Medicine 05/11/21 documented as of this encounter
--- OUTSIDE RECORDS SUMMARY | 2024-06-24 08:08 | XMS_ITS | Encounter Summary ---
Author Organization [facility] Address [address] [place] [address] Care Team Providers Care Ruby On Rails Web Developer Name Role Phone Jagruti Tyler M.D. Primary Care Provider [phone] Reason for Visit * Reason Onset Date Comments Lab Question 03/07/2024 Encounter Details Date Type Department Care Team (Latest Contact Info) Description 03/07/2024 Clinical Communication Division of Nephrology and Hypertension in [place], [place] [address] [place] [address] Alivia Steen M.D., Ph.D. [address] [place] [address] Lab Question Social History Tobacco Use Types Packs/Day Years Used Date Smoking Tobacco: Every Day Cigarettes 1 49.2 Started: 04/10/1975 Passive Smoke Exposure: Past Smokeless Tobacco: Former Quit: 12/01/2018 Comments:Currently vapes jackelin otine on hourly basis Alcohol Use Standard Drinks/Week Comments Not Currently 21 (1 standard drink = 0.6 oz pu re alcohol) [facility] Utilities Answer Date Recorded In the past 12 months has th e [employer], gas, oil, or water company threatened to [...] How often do you attend chur or religion services? More than 4 times per year 11/19/2022 Do you belong to any clubs o r organizations such as oriental orthodox groups, unions, fraternal or athletic groups, or [...] Answer Date Recorded PHQ-2 Score 2 12/21/2023 [facility]at ional Health - Occupational [...] your living situation today? I have a [facility] place to live 12/21/2023 Education Answer Date Recorded What is the highest level of school you have completed or the highest degree you have received? Some college, no degree 02/11/2019 Sex and Gender Information Value Date Recorded Sex Assigned at Male 09/02/2017 9:18 AM ION IMPLANT MACHINE OPERATOR Legal Sex Male 7:21 PM ION IMPLANT MACHINE OPERATOR Gender Identity Male 09/02/2017 9:18 AM ION IMPLANT MACHINE OPERATOR Sexual Orientation Straight 09/02/2017 9: 18 AM ION IMPLANT MACHINE OPERATOR documented as of this encounter Plan of Treatment Upcoming Encounters Date Type Department Care Team (Late st Contact Info) Description 06/29/2024 8:50 AM ION IMPLANT MACHINE OPERATOR Appointment Department of Laboratory Medicine in [address] [phone] Fatou Rivas M.D. [address] [place] [phone] 07/04/2024 7:15 AM ION IMPLANT MACHINE OPERATOR Office Visit Department of Family Medicine, [facility], in [address] [phone] Jagruti Tyler M.D. [address] [place] [phone] Discharge Disposition: Home or Self Care 07/20/2024 9:50 AM ION IMPLANT MACHINE OPERATOR Appointment Department of Laboratory Medicine in [address] [phone] Fatou Rivas M.D. [address] [place] [phone] documented as of this encounter Visit Diagnoses Not on filedocumented in this encounter Additional Health Concerns Assessment Noted Time PHQ-9 Depression Total Score: 4 02/18/20 23 9:12 AM CDT documented as of this encounter Care Teams Ruby On Rails Web Developer Relationship Specialty Start Date End Date Jagruti Tyler M.D. [address] [place] [phone] PCP - General Family Medicine 05/11/21 documented as of this encounter
--- OUTSIDE RECORDS SUMMARY | 2024-06-24 08:08 | XMS_ITS | Encounter Summary ---
Author Organization [facility] Address [address] [place] [address] Care Team Providers Care Title Department Manager Name Role Phone Jagruti Tyler M.D. Primary Care Provider [phone] Encounter Details Date Type Department Care Team (Latest Contact Info) Description 03/23/2024 9:50 AM CDT - 03/23/2024 11:59 PM CDT Hospital Encounter Department of Laboratory Medicine in [address] [phone] Fatou Rivas M.D. [address] [place] [phone] Hyponatremia Discharge Disposition: Home or Self Care Social History Tobacco Use Types Packs/Day Years Used Date Smoking Tobacco: Every Day Cigarettes 1 49.2 Started: 04/10/1975 Passive Smoke Exposure: Past Smokeless Tobacco: Former Quit: 12/01/2018 Comments:Currently vapes jackelin otine on hourly basis Alcohol Use Standard Drinks/Week Comments Not Currently 21 (1 standard drink = 0.6 oz pu re alcohol) [facility] Utilities Answer Date Recorded In the past 12 months has th e [employer], gas, oil, or water [employer] threatened to shut off services in your [...] week 11/19/2022 How often do you attend [facility] or confucianist services? More than 4 times per year 11/19/2022 Do you belong to any clubs o r organizations such as nondenominational groups, unions, fraternal or athletic groups, or [...] Answer Date Recorded PHQ-2 Score 2 12/21/2023 [facility] - Occupational Stress Questionnaire Answer Date [...] your living situation today? I have a [facility] place to live 12/21/2023 Education Answer Date Recorded What is the highest level of school you have completed or the highest degree you have received? Some college, no degree 02/11/2019 Sex and Gender Information Value Date Recorded Sex Assigned at Male 09/02/2017 9:18 AM SENIOR TELLER Legal Sex Male 7:21 PM SENIOR TELLER Gender Identity Male 09/02/2017 9:18 AM SENIOR TELLER Sexual Orientation Straight 09/02/2017 9: 18 AM SENIOR TELLER documented as of this encounter Medications at [...] mouth at bedtime. 145 tablet 3 03/15/2024 thiamine (VITAMIN B1) 100 mg tablet Take [...] a day. 180 capsule 3 06/11/2023 4 sodium chloride 1,000 mg disintegrating tablet Take 4 tablets (4 g total) by mouth 2 (two) times a day. 240 tablet 11 05/07/2023 4 documented as of this encounter Plan of Treatment Upcoming Encounters Date Type Department Care Team (Late st Contact Info) Description 06/29/2024 8:50 AM SENIOR TELLER Appointment Department of Laboratory Medicine in [address] [phone] Fatou Rivas M.D. [address] [place] [phone] 07/04/2024 7:15 AM SENIOR TELLER Office Visit Department of Family Medicine, [facility], in [address] [phone] Jagruti Tyler M.D. [address] [place] [phone] Discharge Disposition: Home or Self Care 07/20/2024 9:50 AM SENIOR TELLER Appointment Department of Laboratory Medicine in [address] [phone] Fatou Rivas M.D. [address] [place] [phone] documented as of this encounter Procedures Procedure Name Priority Date/Time Associated Diagnosis Comments BASIC METABOLIC PANEL, S/P Routine 03/23/2024 10:06 AM CDT Hyponatremia documented in this encounter Results * (ABNORMAL) Basic Metabolic Panel (03/23/2024 10:06 AM CDT) Potassium, P 4.5 3.6 - 5.2 mmol/L 03/23/2024 10:32 AM CDT CNFL Sodium, P 140 135 - 145 mmol/L 03/23/2024 10:32 AM CDT CNFL Chloride, P 101 98 - 107 mmol/L 03/23/2024 10:32 AM CDT CNFL Bicarbonate, P 29 22 - 29 mmol/L 03/23/2024 10:32 AM CDT CNFL Anion Gap, P 10 7 - 15 03/23/2024 10:32 AM CDT CNFL BUN (Blood Urea Nitrogen), P 20 8 - 24 mg/dL 03/23/2024 10:32 AM CDT CNFL Creatinine 0.66(L) 0.74 - 1.35 mg/dL 03/23/2024 10:32 AM CDT CNFL Estimated GFR (eGFR) >90 >=60 mL/min/BSA 03/23/2024 10:32 AM CDT CNFL Comment: Estimated GFR calculated using the 2020 CKD_EPI creatinine equation. Calcium, Total, P 9.6 8.8 - 10.2 mg/dL 03/23/2024 10:32 AM CDT CNFL Glucose, P 108 70 - 140 mg/dL 03/23/2024 10:32 AM CDT CNFL Blood (Blood, Venous) 03/23/2024 10:06 AM CDT 03/23/2024 10:10 AM CDT Fatou Rivas M.D. LAB BLOOD ADD-ON Final Result [facility] [address] [place] [phone], [facility] CNFL [facility] [place] [facility] in [address] [address] documented in this encounter Visit Diagnoses Diagnosis Hyponatremia documented in this encounter Additional Health Concerns Assessment Noted Time PHQ-9 Depression Total Score: 4 02/18/20 23 9:12 AM CDT documented as of this encounter Care Teams Title Department Manager Relationship Specialty Start Date End Date Jagruti Tyler M.D. [address] [place] [phone] PCP - General Family Medicine 05/11/21 documented as of this encounter
--- OUTSIDE RECORDS SUMMARY | 2024-06-24 08:08 | XMS_ITS | Encounter Summary ---
Author Organization [facility] Address [address] [place] [address] Care Team Providers Care Awning Frame Maker Name Role Phone Jagruti Tyler M.D. Primary Care Provider [phone] Reason for Visit * Reason Comments Med Refill Encounter Details Date Type Department Care Team (Late st Contact Info) Description 03/15/2024 Refill Department of Family Medicine, [facility], in [address] [phone] Jagruti Tyler M.D. [address] [place] [phone] Med Refill Social History Tobacco Use Types Packs/Day Years Used Date Smoking Tobacco: Every Day Cigarettes 1 49.2 Started: 04/10/1975 Passive Smoke Exposure: Past Smokeless Tobacco: Former Quit: 12/01/2018 Comments:Currently vapes jackelin otine on hourly basis Alcohol Use Standard Drinks/Week Comments Not Currently 21 (1 standard drink = 0.6 oz pu re alcohol) [facility] Utilities Answer Date Recorded In the past 12 months has e [employer], gas, oil, or water [employer] threatened to shut off services in your [...] How often do you attend chur or restorationist services? More than 4 times per year 11/19/2022 Do you belong to any clubs o r organizations such as pentecostal groups, unions, fraternal or athletic groups, or [...] Answer Date Recorded PHQ-2 Score 2 12/21/2023 [facility] of Occupat ional Health - Occupational Stress [...] your living situation today? I have a [facility] place to live 12/21/2023 Education Answer Date Recorded What is the highest level of school you have completed or the highest degree you have received? Some college, no degree 02/11/2019 Sex and Gender Information Value Date Recorded Sex Assigned at Male 09/02/2017 9:18 AM COMMODITY BUYER Legal Sex Male 7:21 PM COMMODITY BUYER Gender Identity Male 09/02/2017 9:18 AM COMMODITY BUYER Sexual Orientation Straight 09/02/2017 9: 18 AM COMMODITY BUYER documented as of this encounter Miscellaneous Notes * Telephone Encounter - Jagruti Tyler M.D. - 03/16/2024 12:22 PM CDT Prescription approved. documented in this encounter Plan of Treatment Upcoming Encounters Date Type Department Care Team (Late st Contact Info) Description 06/29/2024 8:50 AM COMMODITY BUYER Appointment Department of Laboratory Medicine in [address] [phone] Fatou Rivas M.D. [address] [place] [phone] 07/04/2024 7:15 AM COMMODITY BUYER Office Visit Department of Family Medicine, [facility], in [address] [phone] Jagruti Tyler M.D. [address] [place] [phone] Discharge Disposition: Home or Self Care 07/20/2024 9:50 AM COMMODITY BUYER Appointment Department of Laboratory Medicine in [address] [phone] Fatou Rivas M.D. [address] [place] [phone] documented as of this encounter Visit Diagnoses Not on filedocumented in this encounter Additional Health Concerns Assessment Noted Time PHQ-9 Depression Total Score: 4 02/18/20 23 9:12 AM CDT documented as of this encounter Care Teams Awning Frame Maker Relationship Specialty Start Date End Date Jagruti Tyler M.D. [address] [place] [phone] PCP - General Family Medicine 05/11/21 documented as of this encounter
--- OUTSIDE RECORDS SUMMARY | 2024-06-24 08:08 | XMS_ITS | Encounter Summary ---
Author Organization [facility] Address [address] [place] [id number] Care Team Providers Care Seamer Panty Hose Name Role Phone Jagruti Tyler M.D. Primary Care Provider [phone] Encounter Details Date Type Department Care Team (Latest Contact Info) Description 04/06/2024 9:49 AM CDT - 04/06/2024 11:59 PM CDT Hospital Encounter Department of Laboratory Medicine in [address] [phone] Fatou Rivas M.D. [address] [place] [phone] Hyponatremia Discharge Disposition: Home or Self Care Social History Tobacco Use Types Packs/Day Years Used Date Smoking Tobacco: Every Day Cigarettes 1 49.2 Started: 04/10/1975 Passive Smoke Exposure: Past Smokeless Tobacco: Former Quit: 12/01/2018 Comments:Currently vapes jackelin otine on hourly basis Alcohol Use Standard Drinks/Week Comments Not Currently 21 (1 standard drink = 0.6 oz pu re alcohol) [facility] Utilities Answer Date Recorded In the past 12 months has th e [employer], gas, oil, or water [employer] threatened to shut off services in your [...] week 11/19/2022 How often do you attend [facility] or alevism services? More than 4 times per year 11/19/2022 Do you belong to any clubs o r organizations such as temple groups, unions, fraternal or athletic groups, or [...] Answer Date Recorded PHQ-2 Score 2 12/21/2023 [facility] - Occupational Stress Questionnaire Answer Date [...] your living situation today? I have a [facility] place to live 12/21/2023 Education Answer Date Recorded What is the highest level of school you have completed or the highest degree you have received? Some college, no degree 02/11/2019 Sex and Gender Information Value Date Recorded Sex Assigned at Male 09/02/2017 9:18 AM PROPERTY ECONOMIST Legal Sex Male 7:21 PM PROPERTY ECONOMIST Gender Identity Male 09/02/2017 9:18 AM PROPERTY ECONOMIST Sexual Orientation Straight 09/02/2017 9: 18 AM PROPERTY ECONOMIST documented as of this encounter Medications at [...] st Contact Info) Description 06/29/2024 8:50 AM PROPERTY ECONOMIST Appointment Department of Laboratory Medicine in [address] [phone] Fatou Rivas M.D. [address] [place] [phone] 07/04/2024 7:15 AM PROPERTY ECONOMIST Office Visit Department of Family Medicine, [facility], in [address] [phone] Jagruti Tyler M.D. [address] [place] [phone] Discharge Disposition: Home or Self Care 07/20/2024 9:50 AM PROPERTY ECONOMIST Appointment Department of Laboratory Medicine in [address] [phone] Fatou Rivas M.D. [address] [place] [phone] documented as of this encounter Procedures Procedure Name Priority Date/Time Associated Diagnosis Comments BASIC METABOLIC PANEL, S/P Routine 04/06/2024 9:54 AM CDT Hyponatremia documented in this encounter Results * (ABNORMAL) Basic Metabolic Panel (04/06/2024 9:54 AM CDT) Potassium, P 5.5(H) 3.6 - 5.2 mmol/L 04/06/2024 10:15 AM CDT [facility] Sodium, P 133(L) 135 - 145 mmol/L 04/06/2024 10:15 AM CDT [facility] Chloride, P 96(L) 98 - 107 mmol/L 04/06/2024 10:15 AM CDT [facility] Bicarbonate, P 29 22 - 29 mmol/L 04/06/2024 10:15 AM CDT [facility] Anion Gap, P 8 7 - 15 04/06/2024 10:15 AM CDT [facility] BUN (Blood Urea Nitrogen), P 23 8 - 24 mg/dL 04/06/2024 10:15 AM CDT [facility] Creatinine 0.67(L) 0.74 - 1.35 mg/dL 04/06/2024 10:15 AM CDT [facility] Estimated GFR (eGFR) >90 >=60 mL/min/BSA 04/06/2024 10:15 AM CDT [facility] Comment: Estimated GFR calculated using the 2020 CKD_EPI creatinine equation. Calcium, Total, P 9.4 8.8 - 10.2 mg/dL 04/06/2024 10:15 AM CDT [facility] Glucose, P 106 70 - 140 mg/dL 04/06/2024 10:15 AM CDT [facility] Blood (Blood, Venous) 04/06/2024 9:54 AM CDT 04/06/2024 9:56 AM CDT Fatou Rivas M.D. LAB BLOOD ADD-ON Final Result [facility] [address] [place] [phone], [facility] in [address] [phone] documented in this encounter Visit Diagnoses Diagnosis Hyponatremia documented in this encounter Additional Health Concerns Assessment Noted Time PHQ-9 Depression Total Score: 4 02/18/20 23 9:12 AM CDT documented as of this encounter Care Teams Seamer Panty Hose Relationship Specialty Start Date End Date Jagruti Tyler M.D. [address] [place] [phone] PCP - General Family Medicine 05/11/21 documented as of this encounter
--- NOTE | 2024-06-24 08:15 | CRLHL7_ITS ---
For Patients: As a result of the Century Cures Act, medical imaging exams and procedure reports are released immediately into your electronic medical record. You may view this report before your referring provider. If you have questions, please contact your health care provider. INDICATION: Lung cancer. COMPARISON: PET scan 06/16/2024. 01/29/2021. TECHNIQUE: Multiplanar T1, T2, FLAIR and diffusion-weighted imaging. Post gadolinium T1 weighted sequences. FINDINGS: Moderate generalized volume loss. Scattered patchy foci of T2/FLAIR signal hyperintensity within the white matter of both cerebral hemispheres are nonspecific but likely represent chronic deep white matter small ischemic changes. No intracranial hemorrhage. No abnormal ventricular dilatation. Intracranial vascular flow voids preserved. No mass effect or midline shift. No restricted diffusion to suggest acute ischemia. No susceptibility artifact of remote hemorrhage. No abnormal enhancement or enhancing lesions within the brain parenchyma. Bilateral orbits are unremarkable. Normal appearing sella. Visualized paranasal sinuses mastoid air cells are unremarkable. IMPRESSION: 1. No interval change. 2. No acute intracranial abnormality 3. Moderate generalized cerebral volume loss. Chronic deep white matter small vessel ischemic changes 4. No abnormal enhancement or enhancing lesions. No new intracranial metastases Dictated by Maco Floyd MD @ 06/25/2024 10:33:51 PM (Electronically Signed)
== END 2024-06-24 08:02 | disposition home or self-care (01) ==
LOC: MRI 08:03
PROVIDERS: PCP Family Medicine; Visit Provider Internal Medicine Hematology & Oncology
DX: C34.92 Malignant neoplasm of unspecified part of left bronchus or lung (principal); I67.82 Cerebral ischemia
CPT/HCPCS: 70553; A9575

== ENCOUNTER 2024-06-29 12:40 | Outpatient (RCR) | payer MEDICARE, SELFPAY ==
--- NOTE | 2024-06-24 09:41 | ONC.NURNOTE ---
Patient had a fall in the parking lot this morning while walking into his appt for his brain MRI. Occurrence completed.
--- NOTE | 2024-07-08 10:05 | PC.NURSE ---
Pt's , Afshan, called today asking about a referral to [facility] in [place]. She was under the impression that this referral was urgent and so would like to get it scheduled. Afshan called [facility] today and was told they haven't received the referral. RN reviewed the and [facility] charts. No current orders seen. Will have MD address on Thursday.
== END 2024-12-26 23:59 | disposition home or self-care (01) ==
LOC: CCIC 12:40
PROVIDERS: PCP Family Medicine; Referring Provider Internal Medicine Hematology & Oncology; Visit Provider Internal Medicine Hematology & Oncology
DX: C34.92 Malignant neoplasm of unspecified part of left bronchus or lung (principal); Z72.0 Tobacco use
CPT/HCPCS: 99214; G0463